=== PATIENT | female | born 1950 | race Caucasian/White ===

== ENCOUNTER 2017-03-22 07:05 | Day surgery (SDC) | payer MEDICARE, MEDICAID ==
--- NOTE | 2017-03-19 13:40 | CONS ---
DATE OF ADMISSION: 03/22/2017 DATE OF CONSULTATION: PREOPERATIVE INTERNAL MEDICINE CONSULTATION, MEDICAL HISTORY AND PHYSICAL The patient is to have surgery with Dr. Jc Duke on 03/22/2017. REASON FOR CONSULTATION: Consultation requested by Dr. Jc Duke for medical evaluation and clearance of a 66-year-old woman about to undergo surgery. Thank you, Dr. Duke, for allowing us to participate in the care of this patient. HISTORY OF PRESENT ILLNESS: Shonna Manning, a 66-year-old woman, has had problems with diabetic foot ulcers and osteomyelitis of the right ankle and is currently being admitted for a bone resection.. The patient had undergone intravenous antibiotic therapy, has finished that course, and is generally stable other than that and will be admitted now for correction of that particular problem. In terms of her prior surgical history, she has had cataract surgery, right and left, has had angioplasties done in terms of peripheral vascular issues, and also had a toe amputation. Other than that, has been relatively healthy, has not been admitted, at least not according to her, for any medical reasons, has been managing relatively well according to her and her . MEDICATIONS: She is currently taking the following medications: 1. Coumadin 10 mg a day which she will be stopping. 2. Lantus insulin 42 units daily. 3. Celexa 20 mg a day. 4. Baby aspirin 81 mg a day. 5. Lipitor (atorvastatin) 80 mg a day. 6. Metformin 1000 mg b.i.d. 7. Synthroid 200 mcg daily. 8. Lopressor 25 mg b.i.d. 9. Nifedipine ER 60 mg daily. 10. Benazepril 40 mg a day. 11. Hydrochlorothiazide 25 mg a day. ALLERGIES: SHE IS ALLERGIC TO IODINE DYE, OTHERWISE HAS NO SIGNIFICANT OTHER ALLERGIES TO ANY MEDICATIONS. SOCIAL HISTORY: The patient is , has 2 children and 1 grandchild. One child does have diabetes. She does not smoke or drink alcoholic beverages, does drink coffee. Usually has no difficulty sleeping at night. FAMILY HISTORY: Father at 60 of an accident. Mother is 85, has heart issues as well as hypertension. Two brothers, one sister in relatively good health other than hypertension. She knows of no family history of diabetes. There is, however, heart, hypertension, and stroke. No cancer or thyroid disease otherwise. REVIEW OF SYSTEMS HEENT: Periodic headaches. CARDIORESPIRATORY: Denies any chest pain or shortness of breath. GASTROINTESTINAL: No melena or hematemesis. GENITOURINARY: No urgency or frequency. Does have occasional nocturia. GYNECOLOGIC: Post menopause. MUSCULOSKELETAL: Positive for right ankle foot ulceration. NEUROPSYCHIATRIC: Unremarkable. GENERAL HEALTH: As above. PHYSICAL EXAMINATION: VITAL SIGNS: The patient's blood pressure was 100/60, pulse was 60 and regular , respirations were 18, temperature 98.4. Height and weight were not done due to the patient's difficulty in ambulating. GENERAL: The patient was noted to be a well-developed, well-nourished female, alert and cooperative, in no apparent acute distress, oriented to time, place, and person. HEAD, EARS, EYES, NOSE, AND THROAT: Head was atraumatic. Eyes: Pupils were equal, reactive to light and accommodation. Fundi were poorly visualized. Tympanic membranes were unremarkable. Nose was negative. Mouth was unremarkable. Fair oral hygiene was present. NECK: Supple without any rigidity. Trachea was midline. Thyroid was unremarkable. Neck veins were flat. Carotid pulses were equal. No bruits were heard. BACK: Unremarkable. CHEST: Symmetrical. BREASTS AND AXILLARY: Did not reveal any masses. LUNGS: Clear to percussion and auscultation. HEART: PMI in the fifth intercostal space at the midclavicular line. A regular sinus rhythm was noted. No significant murmurs, rubs, or gallops being elicited. ABDOMEN: Soft, good bowel sounds were noted. No significant organomegaly, masses, or tenderness. GENITALIA: Normal female external genitalia. RECTAL: Per PCP, unremarkable. EXTREMITIES: Did not reveal any clubbing or cyanosis. There was a trace to 1+ pitting edema in both lower extremities. The patient also had boot on the left lower extremity, the right upper extremity as well, making exam of that difficult, refer to Dr. Duke's note in terms of her lower extremity exam. Peripheral pulses at least on pulses that were obtainable was physiologic. SKIN: Moist and warm without any eruptions. No gross lymphadenopathy was noted. NEUROLOGIC: Grossly intact. IMPRESSION: 1. Diabetic ulcer and osteomyelitis, right ankle area. 2. Diabetes mellitus type 2. 3. Hypertension. 4. Hyperlipidemia. 5. Chronic pain syndrome. 6. Stable health otherwise. DISCUSSION: Review of laboratory and other data revealed the following: The patient's chemistry panel revealed normal electrolytes, random glucose 112, BUN 24, creatinine 1, uric acid elevated at 9.9. Liver function tests were normal. Serum iron was low as was her vitamin D. Her hemoglobin A1c, however, was still at 7. CBC revealed a low level anemia, probably iron deficiency with an elevated sed rate. UA was basically unremarkable and PT and PTT were obviously mildly prolonged secondary to the fact that patient was taking her Coumadin and this will be stopped for 4 to 5 days prior to her surgery. The patient's EKG revealed nonspecific ST-T-wave changes and some other mild abnormalities. The patient's chest x-ray was basically within normal limits. Some degenerative changes were noted and a tortuous aorta. Otherwise unremarkable. Dr. Duke, I see no contraindication in this patient undergoing current proposed surgery under the desired form of anesthesia and I feel she is a suitable candidate at this particular point in time. Thank you again, Dr. Duke, for allowing us to participate in the care of this patient. Dictated By: RASHMI ROBERTS/DEBRA Conf#: [id number] DID#: [id number] MTDHaley
[~2017-03-22] VITALS: Ht 165.1 cm; Wt 101.0 kg
[2017-03-22] VITALS (15 sets, daily range): BP systolic 131–183; BP diastolic 55–83; PULSE 68–88; RESP 16–18; Ht 165.1 cm; Wt 101.0 kg
[~2017-03-22 07:05] MED LIST: ASPI-535 PO; ATOR80TA75 PO; BENA40TA41 PO; CEFAZOLIN 2 GM/50 ML (PMX) 50 ML IVPB SCH; CITA20TA6 PO; EPHEDrine SULFATE 50 MG/5 ML SYG ONE; HYD25 PO; LANT3I SC; METF1000 PO; METO-448 PO; NIFE60TA7 PO; SYN2 PO; WARF10TA PO
[2017-03-22] MEDS ORDERED: POLYMYXIN/BACITRACIN 1L IRRIG ONE (08:18)
[2017-03-22] MEDS ORDERED: BUPIVACAINE 0.5% (SDV) 30 ML INJ ONE (08:18)
[2017-03-22] MEDS ORDERED: LIDOCAINE 2% (MDV) 20 ML INJ ONE (08:18)
[2017-03-22] MEDS ORDERED: LEVO200T6 PO (08:18)
[2017-03-22] MEDS ORDERED: GARL1CAP PO (08:18)
[2017-03-22] MEDS ORDERED: METO-448 PO (08:20)
--- NOTE | 2017-03-22 09:01 | HPN ---
Date/Time of Note Date/Time of Note DATE: 03/22/17 TIME: 09:01 Interval H&P Admission Note Pt. seen H&P reviewed: No system changes ROBERTO RICE DPM March 22, 2017 09:01
[2017-03-22] MEDS ORDERED: MIDAZOLAM 1 MG/ML 2 ML INJ ONE (09:22)
[2017-03-22] MEDS ORDERED: LIDOCAINE 2% (SDV) 5 ML INJ ONE (09:29)
[2017-03-22] MEDS ORDERED: ONDANSETRON 4 MG INJ ONE (09:29)
[2017-03-22] MEDS ORDERED: PROPOFOL 20 ML ONE (09:29)
[2017-03-22] MEDS ORDERED: FENTAnyl 50 MCG/ML VIAL ONE (09:29)
[2017-03-22] MEDS ORDERED: METOCLOPRAMIDE 10 MG INJ ONE (09:29)
[2017-03-22] MEDS ORDERED: CEFAZOLIN 1 GM INJ ONE (09:32)
[2017-03-22] MEDS ORDERED: MEPERIDINE 25 MG INJ IV PRN (10:00)
[2017-03-22] MEDS ORDERED: OXYCODONE/ACETAMINOPHEN (5/325) TAB PO PRN ×2 (10:00)
[2017-03-22] MEDS ORDERED: ONDANSETRON 4 MG INJ IV PRN (10:00)
[2017-03-22] MEDS ORDERED: FENTAnyl 50 MCG/ML VIAL IV PRN (10:00)
[2017-03-22] MEDS ORDERED: DIPHENHYDRAMINE 50 MG INJ IV PRN (10:00)
[2017-03-22] MEDS ORDERED: hydrALAzine 20 MG INJ IV PRN (10:00)
[2017-03-22] MEDS ORDERED: LABETALOL HCL 20MG INJ IV PRN (10:00)
[2017-03-22] MEDS ORDERED: PROCHLORPERAZINE 10 MG INJ IV PRN (10:00)
[2017-03-22] MEDS ORDERED: HYDROmorphONE (0.2 MG/ML) 10ML SYG IV PRN (10:00)
--- NOTE | 2017-03-23 09:03 | RADRPT ---
PROCEDURE: XR Foot. CLINICAL INDICATION: Post op xrays TECHNIQUE: AP, lateral and oblique views of the right foot was obtained. The images were reviewed on a PACS workstation. COMPARISON: Plain radiographs of the right foot 07/20/2016 FINDINGS: Resection of the fourth digit at the metatarsophalangeal joint is again noted. Deformity of the distal phalanges of the first, second, and third digits are again noted, likely due to prior resections or inflammation. Pes planus and degenerative changes of the midfoot are again noted. Small inferior and posterior calcaneal spurs are again noted. Soft tissues are unremarkable. IMPRESSION: No significant interval change compared to the prior radiographs from 07/20/2016. RPTAT: EE Physician Naima Date Time Electronically viewed and signed by Physician Naima on 03/23/2017 09:02 /
== END 2017-03-22 13:00 | disposition home or self-care (01) ==
LOC: SDS 07:05
PROVIDERS: ATTEND Podiatrist Foot & Ankle Surgery
DX: M86.8X7 Other osteomyelitis, ankle and foot (principal); I73.9 Peripheral vascular disease, unspecified; E11.9 Type 2 diabetes mellitus without complications; E66.01 Morbid (severe) obesity due to excess calories; Z68.37 Body mass index [BMI] 37.0-37.9, adult; E03.9 Hypothyroidism, unspecified; F32.9 Major depressive disorder, single episode, unspecified; R94.31 Abnormal electrocardiogram [ECG] [EKG]; E78.5 Hyperlipidemia, unspecified; E78.00 Pure hypercholesterolemia, unspecified
CPT/HCPCS: 28120; 73630; 82962; 88304; 88311; J0360; J0690; J1170; J2250; J2405; J2765; J3010

== ENCOUNTER 2017-06-09 05:59 | Day surgery (SDC) | payer MEDICARE, MEDICAID ==
[~2017-06-09] VITALS: Ht 162.6 cm; Wt 95.0 kg
[2017-06-09] VITALS (7 sets, daily range): BP systolic 118–144; BP diastolic 57–67; PULSE 83–98; RESP 14–18; Ht 162.6 cm; Wt 95.0 kg
[~2017-06-09 05:59] MED LIST changes: -CEFAZOLIN 2 GM/50 ML (PMX) 50 ML IVPB SCH; -EPHEDrine SULFATE 50 MG/5 ML SYG ONE; +GARL1CAP PO; +LEVO200T6 PO; -SYN2 PO; -WARF10TA PO
[2017-06-09] MEDS ORDERED: COU10 PO (06:50)
[2017-06-09] MEDS ORDERED: IODIXANOL LOCM 100 ML BTL ONE (06:57)
[2017-06-09] MEDS ORDERED: MIDAZOLAM 1 MG/ML 2 ML INJ ONE (06:57)
[2017-06-09] MEDS ORDERED: LIDOCAINE 1% (MDV) 20 ML INJ ONE (06:57)
[2017-06-09] MEDS ORDERED: FENTAnyl 50 MCG/ML VIAL ONE (06:57)
[2017-06-09] MEDS ORDERED: IOHEXOL 350MG/ML 50 ML BTL ONE (06:57)
[2017-06-09] MEDS ORDERED: HEPARIN 1000 UNITS/ML 10 ML INJ ONE (06:57)
[2017-06-09 06:58] LABS: BASOPHILS % 0.3 % (0.0-2.0); EOSINOPHILS # 0.3 10^3/ul (0.0-0.5); EOSINOPHILS % 2.2 % (0.0-7.0); HEMOGLOBIN 11.4 g/dl (12.0-16.0); LYMPHOCYTES # 3.6 10^3/ul (0.8-2.9); MEAN CORPUSCULAR HEMOGLOBIN 27.8 pg (29.0-33.0); MEAN CORPUSCULAR HGB CONC 31.7 g/dl (32.0-37.0); MEAN CORPUSCULAR VOLUME 87.8 fl (82.0-101.0); MEAN PLATELET VOLUME 9.9 fl (7.4-10.4); MONOCYTE # 1.1 10^3/ul (0.3-0.9); MONOCYTES % 7.9 % (0.0-11.0); PLATELET COUNT 402 10^3/UL (140-415); RED CELL DISTRIBUTION WIDTH 17.2 % (11.5-14.5)
[2017-06-09] MEDS ORDERED: METHYLPREDNISOLONE 125 MG INJ ONE (07:08)
[2017-06-09] MEDS ORDERED: DIPHENHYDRAMINE 50 MG INJ ONE (07:08)
[2017-06-09 07:23] LABS: HOLD TRANSMISSIONS 1
[2017-06-09 07:27] LABS: WHITE BLOOD COUNT 13.9 10^3/ul (4.8-10.8)
[2017-06-09 07:32] LABS: INR 1.02; PROTIME 13.4 Sec (12.2-14.2)
[2017-06-09 07:38] LABS: ALBUMIN 4.3 g/dl (3.3-4.9); ALBUMIN/GLOBULIN RATIO 0.97; BILIRUBIN,INDIRECT 0.1 mg/dl (0-1.1); BILIRUBIN,TOTAL 0.1 mg/dl (0.2-1.3); TOTAL PROTEIN 8.7 g/dl (6.1-8.1)
[2017-06-09 07:39] LABS: CREATININE 1.7 mg/dl (0.44-1.00); POTASSIUM 4.1 mmol/L (3.5-5.1)
--- NOTE | 2017-06-09 09:21 | OPR ---
Date/Time of Note Date/Time of Note DATE: 06/09/17 TIME: 09:20 Operative Report Preoperative Diagnosis R heel ulcer Postoperative Diagnosis same Operation/Procedure Performed Aortogram, BLE r/o, R LEONIDES and TP trunk TILE INSPECTOR 3 x 100 mm Angiosculpt Surgeon: RADHA WILLAMS MD Anesthesia Type: moderate sedation Estimated Blood Loss: none Transfusion Required: no Specimen: none Grafts/Implants: none Complications: no RADHA WILLAMS MD Jun 09, 2017 09:21
--- NOTE | 2017-06-09 09:22 | HPN ---
Date/Time of Note Date/Time of Note DATE: 06/09/17 TIME: 09:21 Interval H&P Admission Note Pt. seen H&P reviewed: No system changes RADHA WILLAMS MD Jun 09, 2017 09:21
--- NOTE | 2017-06-09 09:42 | OPR ---
DATE OF OPERATION: 06/09/2017 PREOPERATIVE DIAGNOSIS: Large nonhealing right heel ulcer. POSTOPERATIVE DIAGNOSIS: Large nonhealing right heel ulcer. PROCEDURE PERFORMED: 1. Abdominal aortogram. 2. Bilateral lower extremity arteriogram. 3. Percutaneous angioplasty of the right anterior tibial and tibioperoneal trunk arteries. SURGEON: Dr. Jhoan Kilpatrick. ANESTHESIA: Local with sedation. ESTIMATED BLOOD LOSS: Minimal. COMPLICATIONS: There were no intraprocedural complications. INDICATIONS: This is a 66-year-old diabetic, morbidly obese woman with a nonhealing ulcer on the right plantar foot. It is a large open ulcer, 3 or 4 cm in diameter and 7 cm deep. She had a previous intervention on the right lower extremity about 6-7 months ago. She had a palpable DP pulse after that and no longer can feel a pulse, so I brought her back today for arteriogram and possible intervention. OPERATIVE PROCEDURE: Patient was brought to the catholic priest and placed on the table in supine position. The groin was prepped and draped in the usual sterile fashion. I used ultrasound to identify the left common femoral artery. It was patent. I infiltrated over the artery using a 10 cc of 1 percent xylocaine. I then used a micropuncture needle to enter the artery under ultrasound guidance. A 018 wire was inserted through the needle into the artery and then a micropuncture sheath was advanced over the wire into the artery and then advanced to 5 Mckeon wire up in the abdominal aorta. I changed to micropuncture sheath for a 5- Angolan sheath over the wire. I advanced an Omniflush catheter into the infrarenal aorta and did an aortogram. I used the catheter to advance the wire up and over the bifurcation and into the right popliteal artery and advanced the catheter into the SFA and did angiography down the right lower extremity. Findings of angiography, the left renal artery is widely patent. The right bilateral common superficial and profunda femoral arteries are patent. The right SFA is patent all the way down. There is some mild irregularity. Popliteal artery on the right is patent above and below the knee. Below the knee, the anterior tibial artery is patent with probably 60-75 percent stenosis at its origin with some graying and narrowing. The TP trunk is occluded. Posterior tibial artery is completely gone. It does not reconstitute. The peroneal artery reconstitutes at its origin from the distal to the occlusion in the TP trunk and then peroneal arteries and the anterior tibial arteries are patent all the way down. The anterior tibial artery crosses the ankle into the foot and gives rise to had an adequate dorsalis pedis. It is small and it does not seem to be filling the area where the wound is on the heel. The peroneal artery, however, goes down to the ankle gives off collaterals into the plantar branches and that seems to be filling the heel area. I can see a blush where the wound is. I decided to treat the anterior tibial artery stenosis and to reopen that included TP trunk so then I advanced an Amplatz wire through the catheter. I left it in the popliteal artery. I then exchanged the 5-Angolan sheath for a 6-Angolan pinnacle destination sheath, the 65 cm, which was left in the distal right SFA. I then used a command wire to cross the occlusion in the peroneal with an 014 quick cross catheter for support. I advanced the catheter down into the distal peroneal and injected, confirmed that I was in the true lumen. I advanced the wire back and then I treated the peroneal with a 3 mm x 100 mm AngioSculpt balloon to 8 atmospheres. I did 2 treatments. The first one, there was still some residual stenosis. I treated again for 2 minutes at 8 atmospheres with no residual stenosis. I then brought the wire back and advanced it into the anterior tibial and I treated that proximal anterior tibia with the same angioscope balloon again to 5 atmospheres for 2 minutes and there was no residual stenosis in either the anterior tibial and peroneal. I did a completion view of the foot. Previously, the anterior tibial filled and then the very, very late filling of the peroneal in the ankle now. After angioplasty, there was very brisk filling of both the anterior tibial and peroneal and the peroneal goes all the way down into the foot and it goes right into the area of the wound at the same rate as the anterior tibial fills. So, I was very happy with the results. I pulled the catheter back into the left external iliac artery and did a completion angiogram, which showed that the puncture was in the left common femoral, and the common superficial and profunda femoral arteries on the left were all patent. I then used a 6-Angolan Angio-Seal to close the puncture site with good hemostasis. I checked the right foot. There is now palpable DP pulse 3+. The foot was warm and pink. She tolerated the procedure well without any complications and was transferred to the recovery room in stable condition. She is going to resume her Coumadin today and I will see her back in the APC next week. Dictated By: Jhoan Kilpatrick MD /al/willy /Document#: [id number] CC: Jc Duke DPM;*[facility]*
--- NOTE | 2017-06-09 13:53 | RADRPT ---
Vent Rate: 89 bpm RR Interval: 0 msec MD Interval: 146 msec QRS Duration: 82 msec QT Interval: 392 msec QTC Interval: 476 msec P-R-T Reading: 40 - -10 - 14 degrees Normal sinus rhythm Low voltage QRS Possible Lateral infarct , age undetermined Inferior infarct , age undetermined Abnormal ECG Electronically Signed By: Chemo Perez [id number]
== END 2017-06-09 13:24 | disposition home or self-care (01) ==
LOC: SDS 05:59 → CCL 06:08 → SDS 13:24
PROVIDERS: ATTEND Surgery Vascular Surgery
DX: I70.234 Atherosclerosis of native arteries of right leg with ulceration of heel and midfoot (principal); L97.419 Non-pressure chronic ulcer of right heel and midfoot with unspecified severity
CPT/HCPCS: 37228; 80053; 82962; 85025; 85610; 93005; C1769; C1887; C1894; J1200; J1644; J2250; J2930; J3010; Q9967

== ENCOUNTER 2017-11-17 09:40 | Day surgery (SDC) | END 2017-11-17 12:00 | disposition home or self-care (01) ==

== ENCOUNTER 2017-11-24 06:01 | Day surgery (SDC) | END 2017-11-24 13:00 | disposition home or self-care (01) ==

== ENCOUNTER 2017-12-29 09:13 | Inpatient (IN) | END 2018-01-11 17:51 | DRG 638 ==

== ENCOUNTER 2018-04-27 13:51 | Observation (INO) | END 2018-04-28 19:10 ==

== ENCOUNTER → 2018-05-03 | Day surgery (SDC) | END | disposition home or self-care (01) ==

== ENCOUNTER 2018-06-20 12:30 | Emergency (ER) | END 2018-06-20 17:30 | disposition home or self-care (01) ==

== ENCOUNTER 2019-04-20 07:30 | Inpatient (IN) | payer MEDICARE, MEDICAID ==
--- NOTE | 2019-04-11 22:04 | HP ---
Date/Time of Note Date/Time of Note DATE: 04/11/19 TIME: 21:48 Assessment/Plan VTE Prophylaxis SCD applied (from Ns): Yes Pharmacological prophylaxis: apixaban Assessment/Plan Problems: (1) Pre-op exam Status: Acute Comment: At this time I find this patient to be acceptable surgical candidate and concur with your plans to proceed with surgery. She is at average risk as compared to her age-matched peers and should do well using standard routine anesthesia precautions. She has been on novel oral anticoagulant therapy for history of DVT. Please note she does have a prior history of peripheral vascular angioplasty which was done 11 months ago. (2) Hypothyroidism Status: Chronic Comment: She has been noncompliant with her thyroid hormones. I will have her back on those plus bring her TSH and doing a better range using liothyronine temporarily. Assuming she cooperates of the medication she is stable to proceed with surgery. Qualifiers: Hypothyroidism type: acquired Qualified Codes: E03.9 - Hypothyroidism, unspecified (3) Peripheral vascular disease Status: Chronic Comment: Stable at this time. (4) Diabetes mellitus type 2 in obese Status: Chronic Comment: Her glycemic control is fair. Certainly at a level that would be acceptable for surgery but there are some other issues that need to be dealt with. (5) Diabetes, polyneuropathy Status: Chronic Comment: Noted and stable. Qualifiers: Diabetes mellitus type: type 2 Qualified Codes: E11.42 - Type 2 diabetes mellitus with diabetic polyneuropathy (6) Essential hypertension Status: Chronic Comment: Adequate control. Please note this to be under better control if she was taking her thyroid medication regularly (7) Hyperlipidemia associated with type 2 diabetes mellitus Status: Chronic Comment: Continue with full dose statin therapy (8) Recurrent deep vein thrombosis (DVT) Status: Chronic Comment: Transition to Lovenox prior to surgery and then resume apixaban postop CC: DAPHNE WILLIAMSON DPM; RADHA WILLAMS MD; NATHAN HAMMOND MD ; HPI/ROS Admit Date/Time Admit Date/Time April 20, 2019 Hx of Present Illness This is 1 of several [facility] admissions for this 68-year old female is being brought in for right foot mid foot fusion with debridement ar-old and external fixation fixator placement for a right Charcot joint. ROS Patient reports in general she is doing well although there are some issues with the quality of information she supplies. Constitutional: no complaints (Denies fevers chills or sweats) Eyes: no complaints (Her client resolution specialist is Dr. 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, peripheral neuropathy, retinopathy, Charcot foot, foot osteomyelitis, peripheral vascular disease), high cholesterol, hypertension, hypothyroid, renal disease (Chronic kidney disease stage III;), other (Diastolic dysfunction grade 1; peripheral vascular disease; Charcot foot; chronic pain syndrome; major depressive disorder; anemia; hyperuricemia; vitamin D deficiency) Medications Eliquis 5 mg twice daily; citalopram 10 mg a day; levothyroxine 100 mcg once a day; metoprolol 25 mg twice daily; metformin 500 mg twice daily; losartan 50 mg twice daily; chlorthalidone 25 mg once a day; atorvastatin 80 mg every afternoon; Basaglar insulin 20 units nightly; NovoLog insulin prior to meals 2 to 5 units. Coded Allergies: iodine (Verified Allergy, Unknown, rash, 05/03/18) Past Surgical History Past Surgical Hx: other (Status post right calcanectomy; status post amputation right second toe; status post angioplasty of peroneal and tibial artery) Family History Significant Family History: heart disease, diabetes, hypertension, other (Negative for anesthesia reactions) Social History Alcohol Use: none Smoking Status: Never smoker Drug Use: none Exam/Review of Systems Vital Signs Vitals Blood pressure 104 74 pulse 68 temp 98.3 respirations 22 Exam Constitutional: alert, oriented Head: normocephalic, atraumatic Eyes: nl conjunctiva, EOMI, nl lids, nl sclera, other (Fundi were not well- visualized) ENMT: nl external ears & nose, nl lips & teeth, nl nasal mucosa & septum, mucosa pink and moist Neck: supple, non-tender Respiratory: clear to auscultation, normal air movement Cardiovascular: regular rate and rhythm, nl pulses Gastrointestinal: soft, nl liver, spleen, non-tender Musculoskeletal: nl extremities to inspection, nl gait and stance Extremities: normal pulses Neurological: COMMERCIAL ARTIST LETTERING II-XII intact, nl mental status, nl speech, nl strength Skin: nl turgor, rash or lesions CHARLES BOWERS MD Apr 11, 2019 22:01
[~2019-04-20] VITALS: Ht 157.5 cm; Wt 106.8 kg
[~2019-04-20 07:30] MED LIST changes: +ACET-2047 PO; +APIX2.5T PO; +ASC500 PO; -ASPI-535 PO; +ATOR-2 PO; -ATOR80TA75 PO; -BENA40TA41 PO; +BISA5TAB6 PO; +CALC-216 PO; +CITA20TA11 PO; -CITA20TA6 PO; +DOCU-159 PO; -GARL1CAP PO; -HYD25 PO; +HYDR-4011 PO; +HYDR12.58 PO; +LACTINEX PO; +LEVO100T82 PO; -LEVO200T6 PO; +LOSA50TA14 PO; +MERO1VIA3 IV; -METF1000 PO; +METF500T24 PO; -METO-448 PO; +METO25TA4 PO; +MULT-542 PO; -NIFE60TA7 PO; +NOVO3I SC; +ONDA8TAB14 PO; +PROT946L PO; +VANC500F2 IV
[2019-04-22] VITALS (22 sets, daily range): BP systolic 119–171; BP diastolic 59–85; PULSE 74–83; RESP 15–18; Ht 157.5 cm; Wt 106.8 kg
[2019-04-22] MEDS ORDERED: CEFAZOLIN 2 GM/50 ML (PMX) 50 ML IVPB ONE (07:00)
[2019-04-22] MEDS ORDERED: CHLO25TA2 PO (14:25)
[2019-04-22] MEDS ORDERED: CITA10TA5 PO (14:25)
[2019-04-22] MEDS ORDERED: METF500T24 PO (14:25)
[2019-04-22] MEDS ORDERED: APIX5TAB PO (14:25)
[2019-04-22] MEDS ORDERED: LIOT5TAB3 PO (14:28)
[2019-04-22] MEDS: SOD CHLORIDE 0.9% 1,000 ML IV SCH (15:24)
--- NOTE | 2019-04-22 16:12 | HPN ---
Date/Time of Note Date/Time of Note DATE: 04/22/19 TIME: 16:11 Interval H&P Admission Note Pt. seen H&P reviewed: No system changes DAPHNE WILLIAMSON DPM Apr 22, 2019 16:12
--- NOTE | 2019-04-22 16:35 | PREAC ---
Date/Time of Note Date/Time of Note DATE: 04/22/19 TIME: 16:32 Anesthesia Eval and Record Evaluation Time Pre-Procedure Interview DATE: 04/22/19 TIME: 16:32 Age 68 Sex female NPO: 8 hrs Preoperative diagnosis right diabetic foot ulcer, charcot.. Planned procedure right foot mid fusion, wound debridement, application of fixator, skin graft Past Medical History Past Medical History: Includes Cardio: HTN, Dyslipidemia Endo: Diabetes Neuro: Peripheral neuropathy GI: Morbid obesity Heme: Anemia Surgery & Anesthesia Issues No known issue Meds Anticoagulation: No Beta Aggie within 24 hr: Yes Active Scripts Ondansetron (Ondansetron Odt) 8 Mg Tab.rapdis, 8 MG PO Q6H PRN for NAUSEA AND/OR VOMITING, #6 TAB Prov:SHAD DUNLAP MD 06/20/18 Reported Medications Liothyronine Sodium* (Cytomel*) 5 Mcg Tablet, 5 MCG PO BID, TAB 04/22/19 Chlorthalidone* (Chlorthalidone*) 25 Mg Tablet, 25 MG PO DAILY, TAB 04/22/19 Metformin Hcl* (Metformin Hcl*) 500 Mg Tablet, 500 MG PO WITH BREAKFAST DINNE, #60 TAB 04/22/19 Metformin Hcl* (Metformin Hcl*) 500 Mg Tablet, 500 MG PO WITH BREAKFAST DINNE, #60 TAB 04/22/19 Citalopram Hydrobromide* (Citalopram Hydrobromide*) 10 Mg Tablet, 10 MG PO DAILY, #30 TAB 04/22/19 Apixaban* (Eliquis*) 5 Mg Tablet, 5 MG PO BID, TAB 04/22/19 Insulin Aspart* (Novolog Insulin Pen*) 100 Unit/Ml Soln, 0 SC .SLIDING SCALE AC, EA 05/03/18 Metoprolol Tartrate* (Lopressor*) 25 Mg Tablet, 25 MG PO BID, #60 TAB 05/03/18 Hydrocodone/Acetaminophen ([place] 5-325 Tablet) 1 Each Tablet, 1 EACH PO Q6 PRN for PAIN LEVEL 4-10, TAB 05/03/18 Acetaminophen* (Acetaminophen*) 650 Mg Tablet, 650 MG PO Q6H PRN for PAIN AND OR ELEVATED TEMP, #30 TAB 05/03/18 Atorvastatin* (Atorvastatin*) 80 Mg Tablet, 80 MG PO QHS, #30 TAB 05/03/18 Insulin Glargine* (Lantus*) 100 Unit/Ml Soln, 35 UNIT SC QHS, #1 VIAL 05/03/18 Levothyroxine Sodium* (Levoxyl*) 100 Mcg Tablet, 100 MCG PO BEFORE BREAKFAST, #30 TAB 05/03/18 Losartan Potassium* (Losartan Potassium*) 50 Mg Tablet, 50 MG PO BID, TAB 05/03/18 Discontinued Reported Medications Meropenem (MEROPENEM) 1 Gm Vial, 1 GM IV Q12 PRN for WOUND INFECTION, VIAL UNTIL 05-09-18 05/03/18 Metformin Hcl* (Metformin Hcl*) 500 Mg Tablet, 500 MG PO WITH BREAKFAST, #30 TAB 05/03/18 Multivitamin* (Daily Value*) 1 Each Tablet, 1 TAB PO DAILY, TAB 05/03/18 Calcium Carbonate/Vitamin D3 (Oyster Shell+D 250 mg Tablet) 1 Each Tablet, 1 EACH PO BID, TAB 05/03/18 Protein Supplement (Promod) 946 Ml Liquid, 30 ML PO DAILY 05/03/18 Vancomycin/0.9 % Sod Chloride (Vanco 500 mg/100 ml-0.9% NaCl) 500 Mg/100 Ml Froz.piggy, 650 MG IV STARTED 04-11-18 STOP 05-09-18 05/03/18 Ascorbic Acid (Vitamin C) 500 Mg Tab, 500 MG PO BID, TAB 05/03/18 Apixaban* (Eliquis*) 2.5 Mg Tablet, 2.5 MG PO BID, TAB 05/03/18 Bisacodyl* (Bisacodyl*) 5 Mg Tablet.dr, 5 MG PO DAILY, TAB 05/03/18 Citalopram Hydrobromide* (Celexa*) 20 Mg Tablet, 20 MG PO DAILY, #30 TAB 05/03/18 Hydrochlorothiazide* (Hydrochlorothiazide*) 12.5 Mg Tablet, 12.5 MG PO DAILY, #30 TAB 05/03/18 Docusate Sodium* (Docusate Sodium*) 100 Mg Capsule, 100 MG PO BID, #60 CAP 05/03/18 Lactobacillus Acidophilus* (Lactinex*) 1 Tab Chew, 1 TAB PO TID, TAB 05/03/18 Current Medications Sodium Chloride 1,000 ml @ 25 mls/hr Q24H IV Last administered on 04/22/19at 15:24; Admin Dose 25 MLS/HR; Start 04/22/19 at 15:30 Meds reviewed: Yes Allergies Coded Allergies: iodine (Verified Allergy, Unknown, rash, 05/03/18) Allergies Reviewed: Yes Labs/Studies Labs Reviewed: Reviewed by anesthesiologist test: N/A Studies: ECG, CXR Pre-procedure Exam Last vitals Vital Signs Date Temp Pulse Resp B/P (MAP) Pulse Ox O2 O2 Flow FiO2 Time Delivery Rate 04/22/19 98.3 83 16 149/70 95 Room Air 14:47 (96) Airway: Adequate mouth opening, Adequate thyromental dist Mallampati: Mallampati II Teeth: Normal Lung: Normal Heart: Normal ASA Physical Status ASA physical status: 3 Emergency: None Planned Anesthetic General/MAC: LMA Planned Pain Management Parenteral pain med Pre-operative Attestations Prior to commencing anesthesia and surgery, the patient was re-evaluated, there was verification of: *The patient's identity *The results of appropriate recent lab work and preoperative vital signs *The above evaluation not changing prior to induction *Anesthetic plan, risk benefits, alternative and complications discussed with patient/family; questions answered; patient/family understands, accepts and wishes to proceed. LEAH POWELL Apr 22, 2019 16:35
[2019-04-22] MEDS ORDERED: THROMBIN 5000 UNIT VIAL ONE (16:58)
[2019-04-22] MEDS ORDERED: POLYMYXIN/BACITRACIN 1L IRRIG ONE (16:58)
[2019-04-22] MEDS ORDERED: GELATIN SIZE 100 SPONGE ONE (16:58)
[2019-04-22] MEDS ORDERED: PROPOFOL 20 ML ONE (16:59)
[2019-04-22] MEDS ORDERED: LIDOCAINE 2% (SDV) 5 ML INJ ONE (17:01)
[2019-04-22] MEDS ORDERED: ROCURONIUM 50 MG INJ ONE (17:01)
[2019-04-22] MEDS ORDERED: FENTAnyl 50 MCG/ML VIAL ONE (17:01)
[2019-04-22] MEDS ORDERED: CEFAZOLIN 1 GM INJ ONE (17:02)
[2019-04-22] MEDS ORDERED: ONDANSETRON 4 MG INJ ONE (17:07)
[2019-04-22] MEDS ORDERED: DEXAMETHASONE 4 MG/ML 5 ML INJ ONE (17:07)
[2019-04-22] MEDS ORDERED: VANCOMYCIN 1 GM INJ ONE (18:03)
--- NOTE | 2019-04-22 18:59 | CONS ---
DATE OF ADMISSION: 04/22/2019 DATE OF CONSULTATION: 04/22/2019 SUBJECTIVE FINDINGS: The patient here for surgical intervention to the right foot. She has multiple issues including nonhealing right foot ulceration, history of calcaneal osteomyelitis as well as joaquina ropathic fracture with malunion. She had been treated as an outpatient for wound care without succes s. 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 She has had prior treatme nt with antibiotics for osteomyelitis as well as she also had hyperbaric therapy with a persistent ul ceration. She is currently, due to comorbidities and nonhealing ulceration, at risk for major limb a mputation. The patient and family requesting attempts at limb salvage. She has seen Dr. Hassan on perioperative period and optimized for surgical intervention. The patient has a history of diabete s and has a fair glycemic control, also peripheral arterial disease status post angioplasty with Dr. Kilpatrick. PAST MEDICAL HISTORY: 1. Hypothyroidism. 2. Diabetes type 2. 3. Obesity. 4. Diabetes with peripheral neuropathy. 5. Hypertension. 6. Hyperlipidemia. 7. History of deep vein thrombosis and had been on chronic anticoagulation therapy and she had been on Eliquis 5 mg b.i.d. MEDICATIONS: 1. Eliquis 5 mg b.i.d. 2. Citalopram 10 mg daily. 3. Levothyroxine 100 mcg daily. 4. Metoprolol 25 mg b.i.d. 5. Metformin 500 mg b.i.d. 6. Losartan 50 mg b.i.d. 7. Chlorthalidone 25 mg once daily. 8. Atorvastatin 80 mg every day. 9. Basaglar insulin 20 units nightly. 10. NovoLog insulin prior to meals 2 to 5 units. ALLERGIES: IODINE. PAST SURGICAL HISTORY: History of a right partial calcanectomy, history of amputation right second t oe, angioplasty of peroneal and anterior tibial artery. FAMILY HISTORY: Positive for heart disease, diabetes, hypertension. SOCIAL HISTORY: Denies any tobacco, alcohol or illicit drug use. REVIEW OF SYSTEMS: 1. Right foot diabetic ulceration. 2. Charcot foot deformity. PHYSICAL EXAMINATION: VITAL SIGNS: Temperature is 98.3, pulse 83, respiratory rate 16, blood pressure is 149/70, pulse ox is 95% on room air. GENERAL: The patient is alert, oriented, no acute distress. Regular respiration. EXTREMITIES: The patient has total contact cast to right lower extremity. No malodor. The patient had radiographs of the right foot revealing chronic osteomyelitis of calcaneus with adjacent soft tis christofer wound ulcer, Charcot arthropathy of the hindfoot with midfoot collapse, fragmentation of the calc aneus. Ankle x-rays advanced arthrosis of the hindfoot and midfoot. PLAN: The patient seen in the perioperative period. Discussed planned procedure, include ulceration debridements, midfoot fusion with use of a circular ring fixation and possible wound closure with po ssible skin graft or flap surgery. The patient has had attempted wound care with minimal improvement and she had subsequently developed neuropathic fracture as well as the calcaneus, also has Charcot o f the midfoot, and given the instability, suspect this is underlying mechanical reason for nonhealing ulceration. The patient has been treated with hyperbarics and IV antibiotics. Currently off antibi otics and has been seen as an outpatient by infectious disease. Discussed risks of surgery and the p atient is amenable. Cast removed in the preoperative holding area. Informed consent obtained and lance lee questions answered to her satisfaction. The patient will need postoperative surveillance as an inp atient for tight glycemic control as well as strict nonweightbearing to the operative foot. Dictated By: DAPHNE GASPAR/DEBRA Conf#: [id number] DID#: [id number] CC: DAPHNE WILLIAMSON DPM;*EndCC*
[2019-04-22] MEDS ORDERED: SUGAMMADEX SODIUM 200 MG/2 ML VIAL IV ONE (20:30)
--- NOTE | 2019-04-22 20:49 | SIPON ---
Date/Time of Note Date/Time of Note DATE: 04/22/19 TIME: 20:41 Operative Report Preoperative Diagnosis Right foot charcot Right foot diabetic ulceration Right foot h/o calcaneal osteomyelitis Right foot midfoot instability DM2 with PN Obesity h/o DVT PAD with prior angioplasty Postoperative Diagnosis same Operation/Procedure Performed Right foot excisional debridement of ulceration skin, subcut, muscle, bone with biopsy Right foot midfoot lateral column fusion with ceremet and bone chips Right foot Flexor Digitorum Brevis muscle flap Right foot abductor digital muscle flap Right foot fasciocutaneous random flap Right foot application of allograft- integra bilayer Right foot application multiplane external fixator Surgeon see signature line botany laboratory assistant Aamdo Michele DPM Anesthesia: general Estimated blood loss: 10 - 50 ml's Transfusion Required none Specimen bone culture bone pathology Grafts/Implants none Complications none DAPHNE WILLIAMSON DPM Apr 22, 2019 20:49
[2019-04-22] MEDS ORDERED: HYDROmorphONE 1 MG/5 ML IV SYRINGE IV ONE (20:52)
--- NOTE | 2019-04-22 20:52 | PAC ---
Date/Time of Note Date/Time of Note DATE: 04/22/19 TIME: 20:52 Post-Anesthesia Notes Post-Anesthesia Note Last documented vital signs Vital Signs Date Temp Pulse Resp B/P (MAP) Pulse Ox O2 O2 Flow FiO2 Time Delivery Rate 04/22/19 252 98.3 83 16 149/70 95 Room Air (96) Activity: WNL Respiratory function: WNL Cardiovascular function: WNL Mental status: Baseline Pain reasonably controlled: Yes Hydration appropriate: Yes Nausea/Vomiting absent: Yes LEAH POWELL Apr 22, 2019 20:52
[2019-04-22] MEDS ORDERED: MEPERIDINE 25 MG INJ IV PRN (21:00)
[2019-04-22] MEDS: INSULIN ASPART [NOVOLOG] 3 ML PEN SC SCH (21:00)
[2019-04-22] MEDS ORDERED: DIPHENHYDRAMINE 50 MG INJ IV PRN (21:00)
[2019-04-22] MEDS ORDERED: ONDANSETRON 4 MG INJ IV PRN ×2 (21:00)
[2019-04-22] MEDS ORDERED: FENTAnyl 50 MCG/ML VIAL IV PRN ×3 (21:00)
[2019-04-22] MEDS ORDERED: ACETAMINOPHEN 325 MG TAB PO PRN (21:00)
[2019-04-22] MEDS ORDERED: HYDROCODONE/APAP (5/325) TAB PO PRN (21:00)
[2019-04-22] MEDS ORDERED: KETOROLAC 30 MG INJ IV PRN (21:00)
[2019-04-22] MEDS ORDERED: CEFAZOLIN 1 GM/50 ML (PMX) 50 ML IVPB SCH (21:00)
[2019-04-22] MEDS ORDERED: EPHEDrine 25 MG/5 ML SYG IV PRN (21:00)
[2019-04-22] MEDS ORDERED: hydrALAzine 20 MG INJ IV PRN (21:00)
[2019-04-22] MEDS ORDERED: HYDROmorphONE 1 MG/5 ML IV SYRINGE IV PRN ×3 (21:00)
[2019-04-22] MEDS ORDERED: LABETALOL HCL 20MG INJ IV PRN (21:00)
[2019-04-22] MEDS ORDERED: ALBUTEROL 0.083% (NEB) 2.5 MG/3 ML AMP HHN PRN (21:00)
[2019-04-22] MEDS ORDERED: METOCLOPRAMIDE 10 MG INJ IV PRN (21:00)
--- NOTE | 2019-04-22 23:17 | OPR ---
DATE OF OPERATION: 04/22/2019 SURGEON: Daphne Williamson DPM VACUUM PAN OPERATOR: Shonda Lainez DPM PREOPERATIVE DIAGNOSES: 1. Right foot Charcot 2. Right foot diabetic foot ulceration, failed outpatient treatment. 3. History of right foot calcaneal osteomyelitis. 4. Right foot mid foot instability. 5. Diabetes with peripheral neuropathy. 6. Obesity. 7. History of deep venous thrombosis. 8. Peripheral arterial disease, history of angioplasty, right anterior tibial. POSTOPERATIVE DIAGNOSES: 1. Right foot Charcot 2. Right foot diabetic foot ulceration, failed outpatient treatment. 3. History of right foot calcaneal osteomyelitis. 4. Right foot mid foot instability. 5. Diabetes with peripheral neuropathy. 6. Obesity. 7. History of deep venous thrombosis. 8. Peripheral arterial disease, history of angioplasty, right anterior tibial. PROCEDURES PERFORMED: 1. Right foot excisional debridement of skin, subcutaneous tissue, muscle and bone with biopsy of becky ne. 2. Right foot mid foot lateral column fusion with Cerament and allograft bone chips. 3. Right foot flexor digitorum brevis muscle flap. 4. Right foot abductor digiti minimi muscle flap. 5. Right foot fasciocutaneous rotation advancement random flap. 6. Right foot application of allograft Integra bilayer. 7. Right foot application of multiplane external fixator. PATHOLOGY: Bone cultures and bone pathology. ANESTHESIA: General. ESTIMATED BLOOD LOSS: 10 to 50 mL. COMPLICATIONS: None. MATERIALS: Integra bilayer, 3-0 Vicryl, 3-0 nylon, multiple smooth wires and 0.062 K-wires. GRAFTS: Bone chip allograft and Cerament. COMPLICATIONS: None. INDICATION FOR PROCEDURE: This is a 68-year-old female with a nonhealing ulceration, who has had mul tiple prior treatments, history of osteomyelitis, hyperbaric treatment as well as IV antibiotics for extended period of time. The patient has since developed instability with a Charcot of the mid foot. She had also prior neuropathic fracture of the calcaneus with malunion. The patient has had prior vascular consultation with angioplasty and has been off of IV antibiotics. She had been seen by infe ctious disease. The patient requesting further attempts at limb salvage. The patient with multiple comorbidities had been optimized. Preoperatively by endocrinology, the patient agrees with complianc e with medications. Discussed planned procedure, risks, benefits, potential complications, questions were answered in Hebrew and site was marked perioperatively. The patient was given 2 grams of Ance f preoperatively. PROCEDURE IN DETAIL: The patient brought into the operating room and placed in the supine position. Extremity was prepped with chlorhexidine. Formal time-out had been performed. A tigh tourniquet daniels d been placed and extremity was draped in usual sterile fashion, subsequently exsanguinated and thigh tourniquet elevated. This patient had an ulceration of plantar aspect of the heel measuring 5 x 3 c m. Excisional debridement of skin, subcutaneous tissue, muscle and tunneled to bone using a rongeur and curette, bone was excised. Portion was obtained for pathology and for culture. At this time, a medially based flap was elevated to expose the lateral column. There was extensive bruising to the _ ___ with torn plantar fascia ligament. These were debrided. The flexor digitorum brevis was extende d to the level of tendon and was mobilized medially and laterally to visualize the calcaneocuboid artem nt. Using a calix elevator, the periosteum was elevated using a rongeur. Using an osteotome, the cart ilage was removed off of the calcaneal cuboid joints. Area was irrigated and temporally fixated with a 0.062 K-wire. There was a cavity, which measured approximately 2 x 1.5 cm. At this time, Ceramen t was mixed with a bone chip allograft and packed into the defect. At this time, the flexor digitoru m brevis was transected at the level of the tendon and was mobilized to cover the heel. The abductor digiti minimi was identified. It was further followed to the level of the tendon insertion The tend on was mobilized and transected. The abductor digiti minimi was elevated and rotated 90 degrees to c over the fusion site and the bone graft and sutured in with 3-0 Vicryl. The flexor digitorum brevis was also sutured in with 3-0 Vicryl. At this time, the flap was further extended to the medial aspec t. Incision was made to the flexor hallucis longus and the flap was mobilized. The flap measured ap proximately 10 x 5 cm and was ____ to cover approximately 90% of the heel ulceration and was sutured with a 3-0 Vicryl. The donor site was covered with Integra bilayer and secured with skin nasima. T ourniquet had been deflated and minimal bleeding noted. At this time, a multiplane external fixator was applied using crossing smooth wires, which were then fixated with connecting nuts and bolts and t ensioned appropriately. The pin sites were cleansed with chlorhexidine and covered with the Acticoat foam sponges and the flap covered with Xeroform, 4 x 4's, Kerlix and bias. The patient tolerated th e procedure well and was transferred to the PACU with vital signs stable. POSTOPERATIVE PLAN: We will continue antibiotics. Recommend limb elevation. We will monitor the ex ternal fixator and pin sites. The patient will be medically managed by Dr. Alan Hassan. Dictated By: DAPHNE WILLIAMSON DPM RB/DEBRA Conf#: [id number] DID#: [id number] CC: SHONDA LAINEZ DPM;*EndCC*
[2019-04-22] MEDS: FAMOTIDINE 20 MG INJ IV SCH (23:50)
[2019-04-22] MEDS: METOPROLOL 25 MG TAB PO SCH (23:53)
[2019-04-22] MEDS: LOSARTAN 50 MG TAB PO SCH (23:53)
[2019-04-22] MEDS: ATORVASTATIN 80 MG TAB PO SCH (23:54)
[2019-04-23] VITALS (9 sets, daily range): BP systolic 128–158; BP diastolic 60–71; PULSE 65–86; RESP 17–20
[2019-04-23] MEDS: APIXABAN 5 MG TABLET PO SCH ×3 (01:14→21:49)
[2019-04-23] MEDS: LIOTHYRONINE 5 MCG TAB PO SCH ×3 (01:14→21:50)
[2019-04-23] MEDS: ACCU-CHEK XX SCH ×4 (02:00→19:55)
[2019-04-23] MEDS: CEFAZOLIN 1 GM/50 ML (PMX) 50 ML IVPB SCH ×3 (02:13→17:24)
[2019-04-23] MEDS: SOD CHLORIDE 0.9% 1,000 ML IV SCH (02:13)
[2019-04-23] MEDS: HYDROCODONE/APAP (5/325) TAB PO PRN ×2 (05:34→21:55)
[2019-04-23] MEDS: LEVOTHYROXINE 100 MCG TAB PO SCH (06:31)
[2019-04-23] MEDS ORDERED: metFORMIN 500 MG TAB PO SCH (07:50)
[2019-04-23] MEDS ORDERED: INSULIN ASPART [NOVOLOG] 3 ML PEN SC SCH ×3 (07:50→17:55)
[2019-04-23] MEDS: metFORMIN 500 MG TAB PO SCH ×2 (08:43→17:24)
[2019-04-23] MEDS: FAMOTIDINE 20 MG INJ IV SCH (08:44)
[2019-04-23] MEDS: CITALOPRAM 20 MG TAB PO SCH (08:45)
[2019-04-23] MEDS: LOSARTAN 50 MG TAB PO SCH ×2 (08:45→21:49)
[2019-04-23] MEDS: METOPROLOL 25 MG TAB PO SCH ×2 (08:47→21:49)
[2019-04-23] MEDS: INSULIN ASPART [NOVOLOG] 3 ML PEN SC SCH ×4 (08:50→21:52)
[2019-04-23] MEDS: CHLORTHALIDONE 25 MG TAB PO SCH (08:53)
--- NOTE | 2019-04-23 11:13 | CONS ---
Assessment/Plan Assessment/Plan Assessment/Plan (Daily) Right foot Charcot Right foot diabetic foot ulceration, failed outpatient treatment. History of right foot calcaneal osteomyelitis. Right foot mid foot instability. Diabetes with peripheral neuropathy. Obesity. History of deep venous thrombosis. Peripheral arterial disease, history of angioplasty, right anterior tibial Plan Dressings were changed and can remain clean dry and intact. No weight bearing to right lower extremity. Recommend physical therapy evaluation from bed to wheel chair. Weightbearing as tolerated to left lower extremity. Patient not expected to be ambulatory at this time. Previously patient has been predominantly wheel chair bound. Intra op cultures are pending and reviewed X- rays. Patient to continue prophylactic anbx for total of 3 days. Pain control as needed. Consultation Date/Type/Reason Admit Date/Time Apr 22, 2019 at 13:14 Initial Consult Date Date/Time of Note DATE: 04/23/19 TIME: 11:13 24 HR Interval Summary Free Text/Dictation No acute events overnight. Exam/Review of Systems Exam Vitals Vital Signs Date Temp Pulse Resp B/P (MAP) Pulse Ox O2 O2 Flow FiO2 Time Delivery Rate 04/23/19 97.0 69 18 150/67 100 Room Air 07:24 (94) 04/23/19 3.0 03:00 Intake and Output 04/22/19 04/22/19 04/23/19 1515:00 23:00 07:00 IntakeIntake Total 1900 ml 1975 ml OutputOutput Total 340 ml 500 ml BalanceBalance 1560 ml 1475 ml Exam Skin flap CFT less than 3 seconds Allograft secured with skin nasima No sign of wound dehisence external fixator in place and adequately aligned No pain on palpation to surgical site Pins are in alignment without hardware failure noted. Results Result Diagram: 04/23/19 0435 04/23/19 0435 Results 24hrs Laboratory Tests Test 04/22/19 14:24 04/22/19 20:59 04/23/19 04:35 04/23/19 07:41 Bedside Glucose 186 148 White Blood Count 15.3 #H Red Blood Count 2.97 L Hemoglobin 8.0 L Hematocrit 26.5 L Mean Corpuscular 89.2 Volume Mean Corpuscular 26.9 L Hemoglobin Mean Corpuscular 30.2 L Hemoglobin Concent Red Cell Distribution 15.2 H Width Platelet Count 282 Mean Platelet Volume 10.4 Immature Granulocytes 0.500 H % Neutrophils % 85.8 H Lymphocytes % 10.1 L Monocytes % 3.5 Eosinophils % 0.0 Basophils % 0.1 Nucleated Red Blood 0.0 Cells % Immature Granulocytes 0.080 H # Neutrophils # 13.1 H Lymphocytes # 1.5 Monocytes # 0.5 Eosinophils # 0.0 Basophils # 0.0 Nucleated Red Blood 0.0 Cells # Sodium Level 141 Potassium Level 4.8 Chloride Level 106 Carbon Dioxide Level 26 Anion Gap 9 Blood Urea Nitrogen 30 H Creatinine 1.25 H Est Glomerular 43 L Filtrat Rate mL/min Glucose Level 250 H Calcium Level 9.1 Lab Scanned Report REFERENCE LAB Test 04/23/19 08:42 04/23/19 10:27 Bedside Glucose 264 H 321 H Medications Medication Current Medications Sodium Chloride 1,000 ml @ 25 mls/hr Q24H IV Last administered on 04/23/19 02:13; Admin Dose 25 MLS/HR; Start 04/22/19 at 15:30 Ondansetron HCl (Zofran Inj) 4 mg Q6H PRN IV NAUSEA AND/OR VOMITING; Start 04/22/19 at 21:00 Famotidine (Pepcid Iv) 20 mg Q12 IV Last administered on 04/23/19 08:44; Admin Dose 20 MG; Start 04/22/19 at 21:00 Acetaminophen (Tylenol Tab) 650 mg Q6H PRN PO MILD PAIN(1-3)OR ELEVATED TEMP; Start 04/22/19 at 21:00 Apixaban (Eliquis) 5 mg BID PO Last administered on 04/23/19 08:46; Admin Dose 5 MG; Start 04/22/19 at 21:00 Atorvastatin Calcium (Lipitor) 80 mg QHS PO Last administered on 04/22/19at 23:54; Admin Dose 80 MG; Start 04/22/19 at 21:00 Chlorthalidone (Hygroton) 25 mg DAILY PO Last administered on 04/23/19 08:53; Admin Dose 25 MG; Start 04/23/19 at 09:00 Citalopram Hydrobromide (Celexa) 10 mg DAILY PO Last administered on 04/23/19at 08:45; Admin Dose 10 MG; Start 04/23/19 at 09:00 Acetaminophen/ Hydrocodone Bitart ([place] (5/325)) 1 tab Q6 PRN PO PAIN LEVEL 4- 10 Last administered on 04/23/19at 05:34; Admin Dose 1 TAB; Start 04/22/19 at 21:00 Levothyroxine Sodium (Synthroid) 100 mcg BEFORE BREAKFAST PO Last administered on 04/23/19at 06:31; Admin Dose 100 MCG; Start 04/23/19 at 07:00 Liothyronine Sodium (Cytomel) 5 mcg BID PO Last administered on 04/23/19at 08:46; Admin Dose 5 MCG; Start 04/22/19 at 21:00 Losartan Potassium (Cozaar) 50 mg BID PO Last administered on 04/23/19 08:45; Admin Dose 50 MG; Start 04/22/19 at 21:00 Metformin HCl (Glucophage) 500 mg WITH BREAKFAST DINNE PO Last administered on 04/23/19at 08:43; Admin Dose 500 MG; Start 04/23/19 at 07:50 Metoprolol Tartrate (Lopressor) 25 mg BID PO Last administered on 04/23/19at 08:47; Admin Dose 25 MG; Start 04/22/19 at 21:00 Diagnostic Test (Pha) (Accu-Chek) 1 ea 02 XX ; Start 04/23/19 at 02:00 Diagnostic Test (Pha) (Accu-Chek) 1 ea 2 HOURS AFTER MEALS XX Last administered on 04/23/19at 10:30; Admin Dose 1 EA; Start 04/23/19 at 09:50 Insulin Glargine (Lantus) 21 units DAILY@2000 SC ; Start 04/23/19 at 20:00 Insulin Aspart (Novolog Insulin Pen) 2 unit WITH BREAKFAST SC Last administered on 04/23/19at 08:49; Admin Dose 2 UNIT; Start 04/23/19 at 07:50 Insulin Aspart (Novolog Insulin Pen) 2 unit WITH LUNCH SC ; Start 04/23/19 at 11:40 Insulin Aspart (Novolog Insulin Pen) 2 unit WITH DINNER SC ; Start 04/23/19 at 17:55 Insulin Aspart (Novolog Insulin Pen) NOVOLOG *MILD* ALGORITHM WITH MEALS BEDTIME SC Last administered on 04/23/19at 08:50; Admin Dose 4 UNIT; Start 04/22/19 at 21:00 Cefazolin Sodium 50 ml @ 100 mls/hr Q8H IVPB Last administered on 04/23/19at 09:23; Admin Dose 100 MLS/HR; Start 04/23/19 at 01:30; Stop 04/26/19 at 01:29 SHONDA LAINEZ DPM Apr 23, 2019 11:13
--- NOTE | 2019-04-23 13:44 | PN ---
Date/Time of Note Date/Time of Note DATE: 04/23/19 TIME: 13:40 Assessment/Plan VTE Prophylaxis Risk score (from [facility])>0 risk: 8 SCD applied (from [facility]): Yes SCD contraindicated: bilateral LE trauma Pharmacological prophylaxis: heparin Lines/Catheters IV Catheter Type (from [facility]): Peripheral IV Assessment/Plan Problems: (1) Acute osteomyelitis of right calcaneus Status: Acute Comment: She is now roughly 12 hours post debridement of right heel with bone biopsy and bone cultures. Those results are pending. Dr. Michele is directing management for postsurgical issues. (2) Diabetes mellitus type 2 in obese Status: Chronic Comment: Her blood sugars drifted up however it turns out that her evening dose of Lantus was not given last night as the orders were officially log in the computer at 2105, and the protocol in the computer states the medicine is entered at 2100. Nursing did not contact me to notify me about this until this afternoon. Resume outpatient treatment protocol (3) Morbid obesity Status: Chronic Comment: Calorie restriction diet (4) Hyperlipidemia associated with type 2 diabetes mellitus Status: Chronic Comment: Continue with full dose statin therapy (5) Hypothyroidism Status: Chronic Comment: Continue on replacement therapy Qualifiers: Hypothyroidism type: acquired Qualified Codes: E03.9 - Hypothyroidism, unspecified (6) Essential hypertension Status: Chronic Comment: Adequate control (7) Diabetes, polyneuropathy Status: Chronic Comment: Continue with treatment. Qualifiers: Diabetes mellitus type: type 2 Qualified Codes: E11.42 - Type 2 diabetes mellitus with diabetic polyneuropathy Result Diagram: 04/23/19 0435 04/23/19 0435 Results 24hrs Laboratory Tests Test 04/22/19 14:24 04/22/19 20:59 04/23/19 04:35 04/23/19 07:41 Bedside Glucose 186 148 White Blood Count 15.3 #H Red Blood Count 2.97 L Hemoglobin 8.0 L Hematocrit 26.5 L Mean Corpuscular 89.2 Volume Mean Corpuscular 26.9 L Hemoglobin Mean Corpuscular 30.2 L Hemoglobin Concent Red Cell Distribution 15.2 H Width Platelet Count 282 Mean Platelet Volume 10.4 Immature Granulocytes 0.500 H % Neutrophils % 85.8 H Lymphocytes % 10.1 L Monocytes % 3.5 Eosinophils % 0.0 Basophils % 0.1 Nucleated Red Blood 0.0 Cells % Immature Granulocytes 0.080 H # Neutrophils # 13.1 H Lymphocytes # 1.5 Monocytes # 0.5 Eosinophils # 0.0 Basophils # 0.0 Nucleated Red Blood 0.0 Cells # Sodium Level 141 Potassium Level 4.8 Chloride Level 106 Carbon Dioxide Level 26 Anion Gap 9 Blood Urea Nitrogen 30 H Creatinine 1.25 H Est Glomerular 43 L Filtrat Rate mL/min Glucose Level 250 H Calcium Level 9.1 Lab Scanned Report REFERENCE LAB Test 04/23/19 08:42 04/23/19 10:27 04/23/19 12:35 Bedside Glucose 264 H 321 H 305 H Subjective 24 Hr Interval Summary Free Text/Dictation Patient reports as of last night and this morning she is having pain but now her pain is better Constitutional: no complaints (No fevers chills or sweats) Respiratory: no complaints Cardiovascular: no complaints Gastrointestinal: no complaints Genitourinary: no complaints Endocrine: no complaints Exam/Review of Systems Exam Vitals Vital Signs Date Temp Pulse Resp B/P (MAP) Pulse Ox O2 O2 Flow FiO2 Time Delivery Rate 04/23/19 97.0 69 18 150/67 100 Room Air 07:24 (94) 04/23/19 3.0 03:00 Intake and Output 04/22/19 04/22/19 04/23/19 1515:00 23:00 07:00 IntakeIntake Total 1900 ml 1975 ml OutputOutput Total 340 ml 500 ml BalanceBalance 1560 ml 1475 ml Constitutional: alert, oriented Neck: supple, non-tender Respiratory: clear to auscultation, normal air movement Cardiovascular: regular rate and rhythm, nl pulses Gastrointestinal: soft, nl liver, spleen, non-tender Extremities: other (Right foot and bandages freshly changed) Results Results 24hrs Laboratory Tests Test 04/22/19 14:24 04/22/19 20:59 04/23/19 04:35 04/23/19 07:41 Bedside Glucose 186 148 White Blood Count 15.3 #H Red Blood Count 2.97 L Hemoglobin 8.0 L Hematocrit 26.5 L Mean Corpuscular 89.2 Volume Mean Corpuscular 26.9 L Hemoglobin Mean Corpuscular 30.2 L Hemoglobin Concent Red Cell Distribution 15.2 H Width Platelet Count 282 Mean Platelet Volume 10.4 Immature Granulocytes 0.500 H % Neutrophils % 85.8 H Lymphocytes % 10.1 L Monocytes % 3.5 Eosinophils % 0.0 Basophils % 0.1 Nucleated Red Blood 0.0 Cells % Immature Granulocytes 0.080 H # Neutrophils # 13.1 H Lymphocytes # 1.5 Monocytes # 0.5 Eosinophils # 0.0 Basophils # 0.0 Nucleated Red Blood 0.0 Cells # Sodium Level 141 Potassium Level 4.8 Chloride Level 106 Carbon Dioxide Level 26 Anion Gap 9 Blood Urea Nitrogen 30 H Creatinine 1.25 H Est Glomerular 43 L Filtrat Rate mL/min Glucose Level 250 H Calcium Level 9.1 Lab Scanned Report REFERENCE LAB Test 04/23/19 08:42 04/23/19 10:27 04/23/19 12:35 Bedside Glucose 264 H 321 H 305 H Medications Medication Current Medications Sodium Chloride 1,000 ml @ 25 mls/hr Q24H IV Last administered on 04/23/19 02:13; Admin Dose 25 MLS/HR; Start 04/22/19 at 15:30 Ondansetron HCl (Zofran Inj) 4 mg Q6H PRN IV NAUSEA AND/OR VOMITING; Start 04/22/19 at 21:00 Famotidine (Pepcid Iv) 20 mg Q12 IV Last administered on 04/23/19 08:44; Admin Dose 20 MG; Start 04/22/19 at 21:00 Acetaminophen (Tylenol Tab) 650 mg Q6H PRN PO MILD PAIN(1-3)OR ELEVATED TEMP; Start 04/22/19 at 21:00 Apixaban (Eliquis) 5 mg BID PO Last administered on 04/23/19 08:46; Admin Dose 5 MG; Start 04/22/19 at 21:00 Atorvastatin Calcium (Lipitor) 80 mg QHS PO Last administered on 04/22/19at 23:54; Admin Dose 80 MG; Start 04/22/19 at 21:00 Chlorthalidone (Hygroton) 25 mg DAILY PO Last administered on 04/23/19 08:53; Admin Dose 25 MG; Start 04/23/19 at 09:00 Citalopram Hydrobromide (Celexa) 10 mg DAILY PO Last administered on 04/23/19 08:45; Admin Dose 10 MG; Start 04/23/19 at 09:00 Acetaminophen/ Hydrocodone Bitart ([place] (5/325)) 1 tab Q6 PRN PO PAIN LEVEL 4- 10 Last administered on 04/23/19 05:34; Admin Dose 1 TAB; Start 04/22/19 at 21:00 Levothyroxine Sodium (Synthroid) 100 mcg BEFORE BREAKFAST PO Last administered on 04/23/19 06:31; Admin Dose 100 MCG; Start 04/23/19 at 07:00 Liothyronine Sodium (Cytomel) 5 mcg BID PO Last administered on 04/23/19 08:46; Admin Dose 5 MCG; Start 04/22/19 at 21:00 Losartan Potassium (Cozaar) 50 mg BID PO Last administered on 04/23/19 08:45; Admin Dose 50 MG; Start 04/22/19 at 21:00 Metformin HCl (Glucophage) 500 mg WITH BREAKFAST DINNE PO Last administered on 04/23/19 08:43; Admin Dose 500 MG; Start 04/23/19 at 07:50 Metoprolol Tartrate (Lopressor) 25 mg BID PO Last administered on 04/23/19 08:47; Admin Dose 25 MG; Start 04/22/19 at 21:00 Diagnostic Test (Pha) (Accu-Chek) 1 ea 02 XX ; Start 04/23/19 at 02:00 Diagnostic Test (Pha) (Accu-Chek) 1 ea 2 HOURS AFTER MEALS XX Last administered on 04/23/19 10:30; Admin Dose 1 EA; Start 04/23/19 at 09:50 Insulin Glargine (Lantus) 21 units DAILY@2000 SC ; Start 04/23/19 at 20:00 Insulin Aspart (Novolog Insulin Pen) 2 unit WITH BREAKFAST SC Last administered on 04/23/19 08:49; Admin Dose 2 UNIT; Start 04/23/19 at 07:50 Insulin Aspart (Novolog Insulin Pen) 2 unit WITH LUNCH SC Last administered on 04/23/19 12:38; Admin Dose 2 UNIT; Start 04/23/19 at 11:40 Insulin Aspart (Novolog Insulin Pen) 2 unit WITH DINNER SC ; Start 04/23/19 at 17:55 Insulin Aspart (Novolog Insulin Pen) NOVOLOG *MILD* ALGORITHM WITH MEALS BEDTIME SC Last administered on 04/23/19 12:39; Admin Dose 5 UNIT; Start 04/22/19 at 21:00 Cefazolin Sodium 50 ml @ 100 mls/hr Q8H IVPB Last administered on 04/23/19at 09:23; Admin Dose 100 MLS/HR; Start 04/23/19 at 01:30; Stop 04/26/19 at 01:29 CHARLES BOWERS MD Apr 23, 2019 13:44
[2019-04-23] MEDS ORDERED: INSULIN GLARGINE [LANTus] (100 UNITS/ML) SYG SC SCH (20:00)
[2019-04-23] MEDS: ATORVASTATIN 80 MG TAB PO SCH (21:49)
[2019-04-23] MEDS: FAMOTIDINE 20 MG TAB PO SCH (21:50)
[2019-04-24 01:31] VITALS: BP 155/68; PULSE 77; RESP 18
[2019-04-24] MEDS: CEFAZOLIN 1 GM/50 ML (PMX) 50 ML IVPB SCH ×3 (01:45→18:05)
[2019-04-24] MEDS: ACCU-CHEK XX SCH ×4 (01:49→20:30)
[2019-04-24] MEDS: LEVOTHYROXINE 100 MCG TAB PO SCH (06:10)
[2019-04-24 06:27] VITALS: BP 151/68; PULSE 67
[2019-04-24 07:20] VITALS: BP 164/72; PULSE 71; RESP 18
--- NOTE | 2019-04-24 08:37 | PN ---
Date/Time of Note Date/Time of Note DATE: 04/24/19 TIME: 08:34 Assessment/Plan VTE Prophylaxis Risk score (from [facility] [place])>0 risk: 9 SCD applied (from [facility] [place]): Yes SCD contraindicated: bilateral LE trauma Pharmacological prophylaxis: apixaban Lines/Catheters IV Catheter Type (from [facility]): Peripheral IV Assessment/Plan Problems: (1) Status post debridement of ulcer of heel Status: Acute Comment: Table postop I do not believe there is been a great deal of bleeding. In addition she has GI prophylaxis. This is an iron deficiency anemia and get a go ahead and give her iron but also transfuse 1 unit of packed red blood cells (2) Acute osteomyelitis of right calcaneus Status: Acute Comment: Pending cultures. (3) Essential hypertension Status: Chronic Comment: Adjustment on beta-blockade slightly, on full dose angiotensin II receptor andie agent (4) Anemia Status: Chronic Comment: Replace with parenteral Ferrlecit 2 doses today, one transfusion given the lowness of the hemoglobin Qualifiers: Anemia type: iron deficiency Iron deficiency anemia type: unspecified iron deficiency Qualified Codes: D50.9 - Iron deficiency anemia, unspecified (5) Hypothyroidism Status: Chronic Comment: Stable on replacement Qualifiers: Hypothyroidism type: acquired Qualified Codes: E03.9 - Hypothyroidism, unspecified (6) Hyperlipidemia associated with type 2 diabetes mellitus Status: Chronic Comment: Continue with statin therapy (7) Recurrent deep vein thrombosis (DVT) Status: Chronic Comment: Stable on apixaban (8) Diabetes mellitus type 2 in obese Status: Chronic Comment: Adjust medications (9) Obesity (BMI 30-39.9) Status: Chronic Comment: Calorie restriction diet Result Diagram: 04/24/19 0434 04/23/19 0435 Results 24hrs Laboratory Tests Test 04/23/19 08:42 04/23/19 10:27 04/23/19 12:35 04/23/19 14:39 Bedside Glucose 264 H 321 H 305 H 331 H Test 04/23/19 17:23 04/23/19 19:25 04/23/19 21:46 04/24/19 01:47 Bedside Glucose 328 H 385 H 348 H 250 H Test 04/24/19 04:34 White Blood Count 11.8 #H Red Blood Count 2.46 L Hemoglobin 6.7 *L Hematocrit 22.1 L Mean Corpuscular Volume 89.8 Mean Corpuscular 27.2 L Hemoglobin Mean Corpuscular 30.3 L Hemoglobin Concent Red Cell Distribution 15.6 H Width Platelet Count 264 Mean Platelet Volume 10.6 H Immature Granulocytes % 0.300 Neutrophils % 61.1 Lymphocytes % 28.5 Monocytes % 9.0 Eosinophils % 0.8 Basophils % 0.3 Nucleated Red Blood 0.0 Cells % Immature Granulocytes # 0.040 H Neutrophils # 7.2 Lymphocytes # 3.4 H Monocytes # 1.1 H Eosinophils # 0.1 Basophils # 0.0 Nucleated Red Blood 0.0 Cells # Subjective 24 Hr Interval Summary Free Text/Dictation Patient reports she feels a little bit tired. Constitutional: no complaints Respiratory: no complaints Cardiovascular: no complaints (Typically denies chest pain palpitations orthopnea or PND) Gastrointestinal: no complaints Genitourinary: no complaints Neurologic: no complaints Exam/Review of Systems Exam Vitals Vital Signs Date Temp Pulse Resp B/P (MAP) Pulse Ox O2 O2 Flow FiO2 Time Delivery Rate 04/24/19 98.0 71 18 164/72 98 Room Air 07:20 (102) 04/23/19 3.0 03:00 Intake and Output 04/23/19 04/23/19 04/24/19 1515:00 23:00 07:00 IntakeIntake Total 610 ml 910 ml 685 ml BalanceBalance 610 ml 910 ml 685 ml Constitutional: alert, oriented Respiratory: clear to auscultation, normal air movement Cardiovascular: regular rate and rhythm, nl pulses Gastrointestinal: soft, nl liver, spleen, non-tender Results Results 24hrs Laboratory Tests Test 04/23/19 08:42 04/23/19 10:27 04/23/19 12:35 04/23/19 14:39 Bedside Glucose 264 H 321 H 305 H 331 H Test 04/23/19 17:23 04/23/19 19:25 04/23/19 21:46 04/24/19 01:47 Bedside Glucose 328 H 385 H 348 H 250 H Test 04/24/19 04:34 White Blood Count 11.8 #H Red Blood Count 2.46 L Hemoglobin 6.7 *L Hematocrit 22.1 L Mean Corpuscular Volume 89.8 Mean Corpuscular 27.2 L Hemoglobin Mean Corpuscular 30.3 L Hemoglobin Concent Red Cell Distribution 15.6 H Width Platelet Count 264 Mean Platelet Volume 10.6 H Immature Granulocytes % 0.300 Neutrophils % 61.1 Lymphocytes % 28.5 Monocytes % 9.0 Eosinophils % 0.8 Basophils % 0.3 Nucleated Red Blood 0.0 Cells % Immature Granulocytes # 0.040 H Neutrophils # 7.2 Lymphocytes # 3.4 H Monocytes # 1.1 H Eosinophils # 0.1 Basophils # 0.0 Nucleated Red Blood 0.0 Cells # Medications Medication Current Medications Sodium Chloride 1,000 ml @ 25 mls/hr Q24H IV Last administered on 04/23/19 02:13; Admin Dose 25 MLS/HR; Start 04/22/19 at 15:30 Ondansetron HCl (Zofran Inj) 4 mg Q6H PRN IV NAUSEA AND/OR VOMITING; Start 04/22/19 at 21:00 Acetaminophen (Tylenol Tab) 650 mg Q6H PRN PO MILD PAIN(1-3)OR ELEVATED TEMP; Start 04/22/19 at 21:00 Apixaban (Eliquis) 5 mg BID PO Last administered on 04/23/19 21:49; Admin Dose 5 MG; Start 04/22/19 at 21:00 Atorvastatin Calcium (Lipitor) 80 mg QHS PO Last administered on 04/23/19 21:49; Admin Dose 80 MG; Start 04/22/19 at 21:00 Chlorthalidone (Hygroton) 25 mg DAILY PO Last administered on 04/23/19 08:53; Admin Dose 25 MG; Start 04/23/19 at 09:00 Citalopram Hydrobromide (Celexa) 10 mg DAILY PO Last administered on 04/23/19 08:45; Admin Dose 10 MG; Start 04/23/19 at 09:00 Acetaminophen/ Hydrocodone Bitart ([place] (5/325)) 1 tab Q6 PRN PO PAIN LEVEL 4- 10 Last administered on 04/23/19 21:55; Admin Dose 1 TAB; Start 04/22/19 at 21:00 Levothyroxine Sodium (Synthroid) 100 mcg BEFORE BREAKFAST PO Last administered on 04/24/19 06:10; Admin Dose 100 MCG; Start 04/23/19 at 07:00 Liothyronine Sodium (Cytomel) 5 mcg BID PO Last administered on 04/23/19 21:50; Admin Dose 5 MCG; Start 04/22/19 at 21:00 Losartan Potassium (Cozaar) 50 mg BID PO Last administered on 04/23/19 21:49; Admin Dose 50 MG; Start 04/22/19 at 21:00 Metformin HCl (Glucophage) 500 mg WITH BREAKFAST DINNE PO Last administered on 04/23/19 17:24; Admin Dose 500 MG; Start 04/23/19 at 07:50 Metoprolol Tartrate (Lopressor) 25 mg BID PO Last administered on 04/23/19 21:49; Admin Dose 25 MG; Start 04/22/19 at 21:00 Diagnostic Test (Pha) (Accu-Chek) 1 ea 02 XX Last administered on 04/24/19 01:49; Admin Dose 1 EA; Start 04/23/19 at 02:00 Diagnostic Test (Pha) (Accu-Chek) 1 ea 2 HOURS AFTER MEALS XX Last administered on 04/23/19 19:55; Admin Dose 1 EA; Start 04/23/19 at 09:50 Insulin Glargine (Lantus) 21 units DAILY@2000 SC Last administered on 04/23/19 21:51; Admin Dose 21 UNITS; Start 04/23/19 at 20:00 Insulin Aspart (Novolog Insulin Pen) 2 unit WITH BREAKFAST SC Last administered on 04/23/19 08:49; Admin Dose 2 UNIT; Start 04/23/19 at 07:50 Insulin Aspart (Novolog Insulin Pen) 2 unit WITH LUNCH SC Last administered on 04/23/19 12:38; Admin Dose 2 UNIT; Start 04/23/19 at 11:40 Insulin Aspart (Novolog Insulin Pen) 2 unit WITH DINNER SC Last administered on 04/23/19 17:27; Admin Dose 2 UNIT; Start 04/23/19 at 17:55 Insulin Aspart (Novolog Insulin Pen) NOVOLOG *MILD* ALGORITHM WITH MEALS BEDTIME SC Last administered on 04/23/19 21:52; Admin Dose 4 UNIT; Start 04/22/19 at 21:00 Cefazolin Sodium 50 ml @ 100 mls/hr Q8H IVPB Last administered on 04/24/19 01:45; Admin Dose 100 MLS/HR; Start 04/23/19 at 01:30; Stop 04/26/19 at 01:29 Famotidine (Pepcid) 20 mg Q12 PO Last administered on 04/23/19at 21:50; Admin Dose 20 MG; Start 04/23/19 at 21:00 Ferric Sodium Gluconate Complex 125 mg/Sodium Chloride 100 ml @ 100 mls/hr ONCE ONCE IVPB ; Start 04/24/19 at 10:00; Stop 04/24/19 at 10:59 Ferric Sodium Gluconate Complex 125 mg/Sodium Chloride 110 ml @ 110 mls/hr DAILY@1300 IVPB ; Start 04/24/19 at 13:00; Stop 04/28/19 at 13:59 CHARLES BOWERS MD Apr 24, 2019 08:37
[2019-04-24] MEDS: METOPROLOL 50 MG TAB PO SCH ×2 (09:05→21:39)
[2019-04-24] MEDS: LIOTHYRONINE 5 MCG TAB PO SCH ×2 (09:06→21:39)
[2019-04-24] MEDS: FAMOTIDINE 20 MG TAB PO SCH ×2 (09:06→21:39)
[2019-04-24] MEDS: metFORMIN 500 MG TAB PO SCH ×2 (09:06→17:50)
[2019-04-24] MEDS: CITALOPRAM 20 MG TAB PO SCH (09:06)
[2019-04-24] MEDS: CHLORTHALIDONE 25 MG TAB PO SCH (09:07)
[2019-04-24] MEDS: LOSARTAN 50 MG TAB PO SCH ×2 (09:07→21:40)
[2019-04-24] MEDS: APIXABAN 5 MG TABLET PO SCH ×2 (09:07→21:39)
[2019-04-24] MEDS: INSULIN ASPART [NOVOLOG] 3 ML PEN SC SCH ×6 (09:14→21:00)
[2019-04-24] MEDS ORDERED: INSULIN GLARGINE [LANTus] (100 UNITS/ML) SYG SC ONE (09:30)
[2019-04-24] MEDS ORDERED: SOD FERRIC GLUC COMPLX 125 MG in SOD CHLORIDE 0.9% 100 ML IVPB ONE (10:00)
--- NOTE | 2019-04-24 12:31 | CONS ---
Assessment/Plan Assessment/Plan Assessment/Plan (Daily) Right foot Charcot Right foot diabetic foot ulceration, failed outpatient treatment. History of right foot calcaneal osteomyelitis. Right foot mid foot instability. Diabetes with peripheral neuropathy. Obesity. History of deep venous thrombosis. Peripheral arterial disease, history of angioplasty, right anterior tibial Plan Dressings were changed and can remain clean dry and intact. No weight bearing to right lower extremity. Recommend physical therapy evaluation from bed to wheel chair. Weightbearing as tolerated to left lower extremity. Patient not expected to be ambulatory at this time. Previously patient has been predominantly wheel chair bound. Intra op cultures are pending currently showing GNR and diptheroids. Patient to continue prophylactic anbx for total of 3 days. Pain control as needed. Additional sutures were placed to the surgical site to assist with secure placement. Recommend ID consult for abx therapy. Patient was noted to be anemic and blood being planned for transfusion along with iron supplementation. Consultation Date/Type/Reason Admit Date/Time Apr 22, 2019 at 13:14 Initial Consult Date Date/Time of Note DATE: 04/24/19 TIME: 12:30 24 HR Interval Summary Free Text/Dictation No fevers overnight. Denies acute events overnight. Exam/Review of Systems Exam Vitals Vital Signs Date Temp Pulse Resp B/P (MAP) Pulse Ox O2 O2 Flow FiO2 Time Delivery Rate 04/24/19 98.0 71 18 164/72 98 Room Air 07:20 (102) 04/23/19 3.0 03:00 Intake and Output 04/23/19 04/23/19 04/24/19 1515:00 23:00 07:00 IntakeIntake Total 610 ml 910 ml 685 ml BalanceBalance 610 ml 910 ml 685 ml Exam Skin flap CFT less than 3 seconds Allograft secured with skin nasima No sign of wound dehisence external fixator in place and adequately aligned No pain on palpation to surgical site Pins are in alignment without hardware failure noted. Results Result Diagram: 04/24/19 0434 04/23/19 0435 Results 24hrs Laboratory Tests Test 04/23/19 12:35 04/23/19 14:39 04/23/19 17:23 04/23/19 19:25 Bedside Glucose 305 H 331 H 328 H 385 H Test 04/23/19 21:46 04/24/19 01:47 04/24/19 04:34 04/24/19 08:34 Bedside Glucose 348 H 250 H 219 White Blood Count 11.8 #H Red Blood Count 2.46 L Hemoglobin 6.7 *L Hematocrit 22.1 L Mean Corpuscular Volume 89.8 Mean Corpuscular 27.2 L Hemoglobin Mean Corpuscular 30.3 L Hemoglobin Concent Red Cell Distribution 15.6 H Width Platelet Count 264 Mean Platelet Volume 10.6 H Immature Granulocytes % 0.300 Neutrophils % 61.1 Lymphocytes % 28.5 Monocytes % 9.0 Eosinophils % 0.8 Basophils % 0.3 Nucleated Red Blood 0.0 Cells % Immature Granulocytes # 0.040 H Neutrophils # 7.2 Lymphocytes # 3.4 H Monocytes # 1.1 H Eosinophils # 0.1 Basophils # 0.0 Nucleated Red Blood 0.0 Cells # Test 04/24/19 10:09 Bedside Glucose 265 H Medications Medication Current Medications Sodium Chloride 1,000 ml @ 25 mls/hr Q24H IV Last administered on 04/23/19at 02:13; Admin Dose 25 MLS/HR; Start 04/22/19 at 15:30 Ondansetron HCl (Zofran Inj) 4 mg Q6H PRN IV NAUSEA AND/OR VOMITING; Start 04/22/19 at 21:00 Acetaminophen (Tylenol Tab) 650 mg Q6H PRN PO MILD PAIN(1-3)OR ELEVATED TEMP; Start 04/22/19 at 21:00 Apixaban (Eliquis) 5 mg BID PO Last administered on 04/24/19at 09:07; Admin Dose 5 MG; Start 04/22/19 at 21:00 Atorvastatin Calcium (Lipitor) 80 mg QHS PO Last administered on 04/23/19at 21:49; Admin Dose 80 MG; Start 04/22/19 at 21:00 Chlorthalidone (Hygroton) 25 mg DAILY PO Last administered on 04/24/19at 09:07; Admin Dose 25 MG; Start 04/23/19 at 09:00 Citalopram Hydrobromide (Celexa) 10 mg DAILY PO Last administered on 04/24/19at 09:06; Admin Dose 10 MG; Start 04/23/19 at 09:00 Acetaminophen/ Hydrocodone Bitart ([place] (5/325)) 1 tab Q6 PRN PO PAIN LEVEL 4- 10 Last administered on 04/23/19 21:55; Admin Dose 1 TAB; Start 04/22/19 at 21:00 Levothyroxine Sodium (Synthroid) 100 mcg BEFORE BREAKFAST PO Last administered on 04/24/19 06:10; Admin Dose 100 MCG; Start 04/23/19 at 07:00 Liothyronine Sodium (Cytomel) 5 mcg BID PO Last administered on 04/24/19 09:06; Admin Dose 5 MCG; Start 04/22/19 at 21:00 Losartan Potassium (Cozaar) 50 mg BID PO Last administered on 04/24/19 09:07; Admin Dose 50 MG; Start 04/22/19 at 21:00 Metformin HCl (Glucophage) 500 mg WITH BREAKFAST DINNE PO Last administered on 04/24/19 09:06; Admin Dose 500 MG; Start 04/23/19 at 07:50 Diagnostic Test (Pha) (Accu-Chek) 1 ea 02 XX Last administered on 04/24/19 01:49; Admin Dose 1 EA; Start 04/23/19 at 02:00 Diagnostic Test (Pha) (Accu-Chek) 1 ea 2 HOURS AFTER MEALS XX Last administered on 04/23/19 19:55; Admin Dose 1 EA; Start 04/23/19 at 09:50 Insulin Aspart (Novolog Insulin Pen) NOVOLOG *MILD* ALGORITHM WITH MEALS BEDTIME SC Last administered on 04/24/19 09:14; Admin Dose 2 UNIT; Start 04/22/19 at 21:00 Cefazolin Sodium 50 ml @ 100 mls/hr Q8H IVPB Last administered on 04/24/19 09:07; Admin Dose 100 MLS/HR; Start 04/23/19 at 01:30; Stop 04/26/19 at 01:29 Famotidine (Pepcid) 20 mg Q12 PO Last administered on 04/24/19 09:06; Admin Dose 20 MG; Start 04/23/19 at 21:00 Ferric Sodium Gluconate Complex 125 mg/Sodium Chloride 110 ml @ 110 mls/hr DAILY@1300 IVPB ; Start 04/24/19 at 13:00; Stop 04/28/19 at 13:59 Metoprolol Tartrate (Lopressor) 50 mg BID PO Last administered on 7/3/19at 09:05; Admin Dose 50 MG; Start 04/24/19 at 09:00 Insulin Aspart (Novolog Insulin Pen) 4 unit WITH BREAKFAST SC ; Start 04/25/19 at 07:50 Insulin Aspart (Novolog Insulin Pen) 4 unit WITH LUNCH SC ; Start 04/24/19 at 11:40 Insulin Aspart (Novolog Insulin Pen) 4 unit WITH DINNER SC ; Start 04/24/19 at 17:55 Insulin Glargine (Lantus) 25 units DAILY@2000 SC ; Start 04/24/19 at 20:00 SHONDA LAINEZ DPM Apr 24, 2019 12:31
[2019-04-24] MEDS: HYDROCODONE/APAP (5/325) TAB PO PRN (13:57)
[2019-04-24 14:08] VITALS: BP 139/63; PULSE 62; RESP 18
[2019-04-24] MEDS: SOD CHLORIDE 0.9% 1,000 ML IV SCH (15:30)
[2019-04-24] MEDS: SOD FERRIC GLUC COMPLX 125 MG in SOD CHLORIDE 0.9% 100 ML IVPB SCH (16:47)
[2019-04-24 20:01] VITALS: BP 158/71; PULSE 63; RESP 20
[2019-04-24] MEDS: INSULIN GLARGINE [LANTus] (100 UNITS/ML) SYG SC SCH (21:37)
[2019-04-24] MEDS: ATORVASTATIN 80 MG TAB PO SCH (21:39)
[2019-04-25] MEDS: CEFAZOLIN 1 GM/50 ML (PMX) 50 ML IVPB SCH ×2 (01:38→10:06)
[2019-04-25] MEDS: ACCU-CHEK XX SCH ×4 (01:42→19:55)
[2019-04-25 02:00] VITALS: BP 148/65; RESP 18
[2019-04-25] MEDS: LEVOTHYROXINE 100 MCG TAB PO SCH (06:18)
[2019-04-25 07:25] VITALS: BP 138/73; PULSE 63; RESP 18
[2019-04-25] MEDS: INSULIN ASPART [NOVOLOG] 3 ML PEN SC SCH ×7 (07:50→21:12)
[2019-04-25] MEDS: FAMOTIDINE 20 MG TAB PO SCH ×2 (08:24→21:06)
[2019-04-25] MEDS: METOPROLOL 50 MG TAB PO SCH ×2 (08:25→21:05)
[2019-04-25] MEDS: CHLORTHALIDONE 25 MG TAB PO SCH (08:25)
[2019-04-25] MEDS: LOSARTAN 50 MG TAB PO SCH ×2 (08:26→21:05)
[2019-04-25] MEDS: LIOTHYRONINE 5 MCG TAB PO SCH ×2 (08:26→21:05)
[2019-04-25] MEDS: CITALOPRAM 20 MG TAB PO SCH (08:26)
[2019-04-25] MEDS: APIXABAN 5 MG TABLET PO SCH ×2 (08:26→21:06)
[2019-04-25] MEDS: metFORMIN 500 MG TAB PO SCH ×2 (08:29→17:52)
--- NOTE | 2019-04-25 12:16 | PN ---
Date/Time of Note Date/Time of Note DATE: 04/25/19 TIME: 12:13 Assessment/Plan VTE Prophylaxis Risk score (from [facility] [place]0 risk: 7 SCD applied (from [facility] [place]): Yes SCD contraindicated: bilateral LE trauma Pharmacological prophylaxis: heparin Lines/Catheters IV Catheter Type (from [facility]): Peripheral IV Assessment/Plan Problems: (1) Status post debridement of ulcer of heel Status: Acute Comment: An external fixation device. We now have culture reports showing E. coli growing there. Antibiotics will be adjusted to reflect this. In addition I will ask infectious disease real estate consultant to make sure that they do not have any additional suggestions to protect this individual. (2) Acute osteomyelitis of right calcaneus Status: Acute Comment: As above. (3) Essential hypertension Status: Chronic Comment: Good control of blood pressure (4) Hypothyroidism Status: Chronic Comment: Stable on replacement therapy Qualifiers: Hypothyroidism type: acquired Qualified Codes: E03.9 - Hypothyroidism, unspecified (5) Hyperlipidemia associated with type 2 diabetes mellitus Status: Chronic Comment: Table on statin therapy (6) Recurrent deep vein thrombosis (DVT) Status: Chronic Comment: Continues with novel oral anticoagulant therapy (7) Diabetes mellitus type 2 in obese Status: Chronic Comment: Adequate control (8) Diabetes, polyneuropathy Status: Chronic Comment: Stable at this time Qualifiers: Diabetes mellitus type: type 2 Qualified Codes: E11.42 - Type 2 diabetes mellitus with diabetic polyneuropathy (9) Morbid obesity Status: Chronic Comment: Calorie restriction diet Result Diagram: 04/25/19 0447 04/25/197 Results 24hrs Laboratory Tests Test 04/24/19 12:51 04/24/19 17:42 04/24/19 17:45 04/24/19 19:57 Bedside Glucose 311 H 186 178 189 Test 04/24/19 21:35 04/25/19 04:47 04/25/19 06:49 04/25/19 08:28 Bedside Glucose 143 91 White Blood Count 11.6 H Red Blood Count 3.07 #L Hemoglobin 8.3 #L Hematocrit 27.3 #L Mean Corpuscular 88.9 Volume Mean Corpuscular 27.0 L Hemoglobin Mean Corpuscular 30.4 L Hemoglobin Concent Red Cell 15.3 H Distribution Width Platelet Count 273 Mean Platelet 10.6 H Volume Immature 0.600 H Granulocytes % Neutrophils % 58.2 Lymphocytes % 29.0 Monocytes % 9.2 Eosinophils % 2.7 Basophils % 0.3 Nucleated Red Blood 0.0 Cells % Immature 0.070 H Granulocytes # Neutrophils # 6.7 Lymphocytes # 3.4 H Monocytes # 1.1 H Eosinophils # 0.3 Basophils # 0.0 Nucleated Red Blood 0.0 Cells # Sodium Level 141 Potassium Level 4.6 Chloride Level 110 Carbon Dioxide 26 Level Anion Gap 5 Blood Urea Nitrogen 33 H Creatinine 1.29 H Est Glomerular 41 L Filtrat Rate mL/min Glucose Level 73 Calcium Level 8.8 Lab Scanned Report BLOOD TRANSFUSION Subjective 24 Hr Interval Summary Free Text/Dictation Patient reports that she is feeling okay but still little tired Constitutional: no complaints (No fevers chills or sweats) Respiratory: no complaints Cardiovascular: no complaints Gastrointestinal: no complaints Genitourinary: no complaints Musculoskeletal: other (Right foot pain well controlled) Exam/Review of Systems Exam Vitals Vital Signs Date Temp Pulse Resp B/P (MAP) Pulse Ox O2 O2 Flow FiO2 Time Delivery Rate 04/25/19 98.5 63 18 138/73 96 07:25 (94) 04/25/19 Room Air 02:00 04/23/19 3.0 03:00 Intake and Output 04/24/19 04/24/19 04/25/19 1515:00 23:00 07:00 IntakeIntake Total 635 ml 410 ml 50 ml OutputOutput Total 1 ml BalanceBalance 635 ml 409 ml 50 ml Constitutional: alert, oriented Neck: supple, non-tender Respiratory: clear to auscultation, normal air movement Cardiovascular: regular rate and rhythm, nl pulses Extremities: other (Right lower extremity and external fixation cage) Results Results 24hrs Laboratory Tests Test 04/24/19 12:51 04/24/19 17:42 04/24/19 17:45 04/24/19 19:57 Bedside Glucose 311 H 186 178 189 Test 04/24/19 21:35 04/25/19 04:47 04/25/19 06:49 04/25/19 08:28 Bedside Glucose 143 91 White Blood Count 11.6 H Red Blood Count 3.07 #L Hemoglobin 8.3 #L Hematocrit 27.3 #L Mean Corpuscular 88.9 Volume Mean Corpuscular 27.0 L Hemoglobin Mean Corpuscular 30.4 L Hemoglobin Concent Red Cell 15.3 H Distribution Width Platelet Count 273 Mean Platelet 10.6 H Volume Immature 0.600 H Granulocytes % Neutrophils % 58.2 Lymphocytes % 29.0 Monocytes % 9.2 Eosinophils % 2.7 Basophils % 0.3 Nucleated Red Blood 0.0 Cells % Immature 0.070 H Granulocytes # Neutrophils # 6.7 Lymphocytes # 3.4 H Monocytes # 1.1 H Eosinophils # 0.3 Basophils # 0.0 Nucleated Red Blood 0.0 Cells # Sodium Level 141 Potassium Level 4.6 Chloride Level 110 Carbon Dioxide 26 Level Anion Gap 5 Blood Urea Nitrogen 33 H Creatinine 1.29 H Est Glomerular 41 L Filtrat Rate mL/min Glucose Level 73 Calcium Level 8.8 Lab Scanned Report BLOOD TRANSFUSION Medications Medication Current Medications Sodium Chloride 1,000 ml @ 25 mls/hr Q24H IV Last administered on 04/23/19 02:13; Admin Dose 25 MLS/HR; Start 04/22/19 at 15:30 Ondansetron HCl (Zofran Inj) 4 mg Q6H PRN IV NAUSEA AND/OR VOMITING; Start 04/22/19 at 21:00 Acetaminophen (Tylenol Tab) 650 mg Q6H PRN PO MILD PAIN(1-3)OR ELEVATED TEMP; Start 04/22/19 at 21:00 Apixaban (Eliquis) 5 mg BID PO Last administered on 04/25/19 08:26; Admin Dose 5 MG; Start 04/22/19 at 21:00 Atorvastatin Calcium (Lipitor) 80 mg QHS PO Last administered on 04/24/19 21:39; Admin Dose 80 MG; Start 04/22/19 at 21:00 Chlorthalidone (Hygroton) 25 mg DAILY PO Last administered on 04/25/19 08:25; Admin Dose 25 MG; Start 04/23/19 at 09:00 Citalopram Hydrobromide (Celexa) 10 mg DAILY PO Last administered on 04/25/19 08:26; Admin Dose 10 MG; Start 04/23/19 at 09:00 Acetaminophen/ Hydrocodone Bitart ([place] (5/325)) 1 tab Q6 PRN PO PAIN LEVEL 4- 10 Last administered on 04/24/19 13:57; Admin Dose 1 TAB; Start 04/22/19 at 21:00 Levothyroxine Sodium (Synthroid) 100 mcg BEFORE BREAKFAST PO Last administered on 04/25/19 06:18; Admin Dose 100 MCG; Start 04/23/19 at 07:00 Liothyronine Sodium (Cytomel) 5 mcg BID PO Last administered on 04/25/19 08:26; Admin Dose 5 MCG; Start 04/22/19 at 21:00 Losartan Potassium (Cozaar) 50 mg BID PO Last administered on 04/25/19 08:26; Admin Dose 50 MG; Start 04/22/19 at 21:00 Metformin HCl (Glucophage) 500 mg WITH BREAKFAST DINNE PO Last administered on 04/25/19 08:29; Admin Dose 500 MG; Start 04/23/19 at 07:50 Diagnostic Test (Pha) (Accu-Chek) 1 ea 02 XX Last administered on 04/24/19 01:49; Admin Dose 1 EA; Start 04/23/19 at 02:00 Diagnostic Test (Pha) (Accu-Chek) 1 ea 2 HOURS AFTER MEALS XX Last administered on 04/24/19 20:30; Admin Dose 1 EA; Start 04/23/19 at 09:50 Insulin Aspart (Novolog Insulin Pen) NOVOLOG *MILD* ALGORITHM WITH MEALS BEDTIME SC Last administered on 04/24/19 17:49; Admin Dose 1 UNIT; Start 04/22/19 at 21:00 Famotidine (Pepcid) 20 mg Q12 PO Last administered on 04/25/19 08:24; Admin Dose 20 MG; Start 04/23/19 at 21:00 Ferric Sodium Gluconate Complex 125 mg/Sodium Chloride 110 ml @ 110 mls/hr DAILY@1300 IVPB Last administered on 04/24/19 16:47; Admin Dose 110 MLS/HR; Start 04/24/19 at 13:00; Stop 04/28/19 at 13:59 Metoprolol Tartrate (Lopressor) 50 mg BID PO Last administered on 04/25/19 08:25; Admin Dose 50 MG; Start 04/24/19 at 09:00 Insulin Aspart (Novolog Insulin Pen) 4 unit WITH BREAKFAST SC Last administered on 04/25/19 08:31; Admin Dose 4 UNIT; Start 04/25/19 at 07:50 Insulin Aspart (Novolog Insulin Pen) 4 unit WITH LUNCH SC Last administered on 04/24/19at 12:56; Admin Dose 4 UNIT; Start 04/24/19 at 11:40 Insulin Aspart (Novolog Insulin Pen) 4 unit WITH DINNER SC Last administered on 04/24/19at 17:50; Admin Dose 4 UNIT; Start 04/24/19 at 17:55 Insulin Glargine (Lantus) 25 units DAILY@2000 SC Last administered on 04/24/19at 21:37; Admin Dose 25 UNITS; Start 04/24/19 at 20:00 Cefepime HCl 50 ml @ 100 mls/hr Q12 IVPB ; Start 04/25/19 at 13:00; Stop 06/06/19 at 12:59 Lactated Ringer's 500 ml @ 500 mls/hr Q1H ONCE IV ; Start 04/25/19 at 12:30; Stop 04/25/19 at 13:29; Status CHARLES SANCHEZ MD Apr 25, 2019 12:16
[2019-04-25] MEDS ORDERED: LACTATED RINGER'S 500 ML IV ONE (12:30)
[2019-04-25] MEDS: HYDROCODONE/APAP (5/325) TAB PO PRN (12:52)
--- NOTE | 2019-04-25 12:52 | CONS ---
Assessment/Plan Assessment/Plan Assessment/Plan (Daily) Right foot Charcot Right foot diabetic foot ulceration, failed outpatient treatment. History of right foot calcaneal osteomyelitis. Right foot mid foot instability. Diabetes with peripheral neuropathy. Obesity. History of deep venous thrombosis. Peripheral arterial disease, history of angioplasty, right anterior tibial Plan Dressings were changed and can remain clean dry and intact. No weight bearing to right lower extremity. Recommend physical therapy evaluation from bed to wheel chair. Weightbearing as tolerated to left lower extremity. Patient not expected to be ambulatory at this time. Previously patient has been predominantly wheel chair bound. Intra op cultures are pending currently showing e.coli and corynebacterium. Complete prophylactic anbx for total of 3 days. Pain control as needed. Recommend ID consult for abx therapy. Appreciate medical management from Dr. Hassan. Consultation Date/Type/Reason Admit Date/Time Apr 22, 2019 at 13:14 Initial Consult Date Date/Time of Note DATE: 04/25/19 TIME: 12:52 24 HR Interval Summary Free Text/Dictation No acute events overnight. Exam/Review of Systems Exam Vitals Vital Signs Date Temp Pulse Resp B/P (MAP) Pulse Ox O2 O2 Flow FiO2 Time Delivery Rate 04/25/19 98.5 63 18 138/73 96 07:25 (94) 04/25/19 Room Air 02:00 04/23/19 3.0 03:00 Intake and Output 04/24/19 04/24/19 04/25/19 1515:00 23:00 07:00 IntakeIntake Total 635 ml 410 ml 50 ml OutputOutput Total 1 ml BalanceBalance 635 ml 409 ml 50 ml Exam Skin flap CFT less than 3 seconds Allograft secured with skin nasima No sign of wound dehisence external fixator in place and adequately aligned No pain on palpation to surgical site Pins are in alignment without hardware failure noted. Results Result Diagram: 04/25/19 0447 04/25/19446 Results 24hrs Laboratory Tests Test 04/24/19 17:42 04/24/19 17:45 04/24/19 19:57 04/24/19 21:35 Bedside Glucose 186 178 189 143 Test 04/25/19 04:47 04/25/19 06:49 04/25/19 08:28 04/25/19 12:44 White Blood Count 11.6 H Red Blood Count 3.07 #L Hemoglobin 8.3 #L Hematocrit 27.3 #L Mean Corpuscular 88.9 Volume Mean Corpuscular 27.0 L Hemoglobin Mean Corpuscular 30.4 L Hemoglobin Concent Red Cell 15.3 H Distribution Width Platelet Count 273 Mean Platelet 10.6 H Volume Immature 0.600 H Granulocytes % Neutrophils % 58.2 Lymphocytes % 29.0 Monocytes % 9.2 Eosinophils % 2.7 Basophils % 0.3 Nucleated Red Blood 0.0 Cells % Immature 0.070 H Granulocytes # Neutrophils # 6.7 Lymphocytes # 3.4 H Monocytes # 1.1 H Eosinophils # 0.3 Basophils # 0.0 Nucleated Red Blood 0.0 Cells # Sodium Level 141 Potassium Level 4.6 Chloride Level 110 Carbon Dioxide 26 Level Anion Gap 5 Blood Urea Nitrogen 33 H Creatinine 1.29 H Est Glomerular 41 L Filtrat Rate mL/min Glucose Level 73 Calcium Level 8.8 Lab Scanned Report BLOOD TRANSFUSION Bedside Glucose 91 120 Medications Medication Current Medications Sodium Chloride 1,000 ml @ 25 mls/hr Q24H IV Last administered on 04/23/19at 02:13; Admin Dose 25 MLS/HR; Start 04/22/19 at 15:30 Ondansetron HCl (Zofran Inj) 4 mg Q6H PRN IV NAUSEA AND/OR VOMITING; Start 04/22/19 at 21:00 Acetaminophen (Tylenol Tab) 650 mg Q6H PRN PO MILD PAIN(1-3)OR ELEVATED TEMP; Start 04/22/19 at 21:00 Apixaban (Eliquis) 5 mg BID PO Last administered on 04/25/19 08:26; Admin Dose 5 MG; Start 04/22/19 at 21:00 Atorvastatin Calcium (Lipitor) 80 mg QHS PO Last administered on 04/24/19 21: 39; Admin Dose 80 MG; Start 04/22/19 at 21:00 Chlorthalidone (Hygroton) 25 mg DAILY PO Last administered on 04/25/19 08:25; Admin Dose 25 MG; Start 04/23/19 at 09:00 Citalopram Hydrobromide (Celexa) 10 mg DAILY PO Last administered on 04/25/19 08:26; Admin Dose 10 MG; Start 04/23/19 at 09:00 Acetaminophen/ Hydrocodone Bitart ([place] (5/325)) 1 tab Q6 PRN PO PAIN LEVEL 4- 10 Last administered on 04/24/19 13:57; Admin Dose 1 TAB; Start 04/22/19 at 21:00 Levothyroxine Sodium (Synthroid) 100 mcg BEFORE BREAKFAST PO Last administered on 04/25/19 06:18; Admin Dose 100 MCG; Start 04/23/19 at 07:00 Liothyronine Sodium (Cytomel) 5 mcg BID PO Last administered on 04/25/19 08:26; Admin Dose 5 MCG; Start 04/22/19 at 21:00 Losartan Potassium (Cozaar) 50 mg BID PO Last administered on 04/25/19 08:26; Admin Dose 50 MG; Start 04/22/19 at 21:00 Metformin HCl (Glucophage) 500 mg WITH BREAKFAST DINNE PO Last administered on 04/25/19 08:29; Admin Dose 500 MG; Start 04/23/19 at 07:50 Diagnostic Test (Pha) (Accu-Chek) 1 ea 02 XX Last administered on 04/24/19 01:49; Admin Dose 1 EA; Start 04/23/19 at 02:00 Diagnostic Test (Pha) (Accu-Chek) 1 ea 2 HOURS AFTER MEALS XX Last administered on 04/24/19 20:30; Admin Dose 1 EA; Start 04/23/19 at 09:50 Insulin Aspart (Novolog Insulin Pen) NOVOLOG *MILD* ALGORITHM WITH MEALS BEDTIME SC Last administered on 04/24/19 17:49; Admin Dose 1 UNIT; Start 04/22/19 at 21:00 Famotidine (Pepcid) 20 mg Q12 PO Last administered on 04/25/19 08:24; Admin Dose 20 MG; Start 04/23/19 at 21:00 Ferric Sodium Gluconate Complex 125 mg/Sodium Chloride 110 ml @ 110 mls/hr DAILY@1300 IVPB Last administered on 04/24/19 16:47; Admin Dose 110 MLS/HR; Start 04/24/19 at 13:00; Stop 04/28/19 at 13:59 Metoprolol Tartrate (Lopressor) 50 mg BID PO Last administered on 04/25/19 08:25; Admin Dose 50 MG; Start 04/24/19 at 09:00 Insulin Aspart (Novolog Insulin Pen) 4 unit WITH BREAKFAST SC Last administered on 04/25/19at 08:31; Admin Dose 4 UNIT; Start 04/25/19 at 07:50 Insulin Aspart (Novolog Insulin Pen) 4 unit WITH LUNCH SC Last administered on 04/24/19at 12:56; Admin Dose 4 UNIT; Start 04/24/19 at 11:40 Insulin Aspart (Novolog Insulin Pen) 4 unit WITH DINNER SC Last administered on 04/24/19at 17:50; Admin Dose 4 UNIT; Start 04/24/19 at 17:55 Insulin Glargine (Lantus) 25 units DAILY@2000 SC Last administered on 04/24/19at 21:37; Admin Dose 25 UNITS; Start 04/24/19 at 20:00 Cefepime HCl 50 ml @ 100 mls/hr Q12 IVPB ; Start 04/25/19 at 13:00; Stop 06/06/19 at 12:59 Lactated Ringer's 500 ml @ 500 mls/hr Q1H ONCE IV ; Start 04/25/19 at 12:30; Stop 04/25/19 at 13:29 SHONDA LAINEZ DPTwila Apr 25, 2019 12:52
[2019-04-25] MEDS ORDERED: CEFEPIME 2GM/50 ML (PMX) 50 ML IVPB SCH (13:00)
--- NOTE | 2019-04-25 13:07 | CONS ---
Assessment/Plan Assessment/Plan Hospital Course (Demo Recall) ID NOTE => Patient well-known to Dr. Gardner from multiple past consultations TOTAL ABX DAY # 3.5 CURRENT ABX=>CEFEPIME S/P ANCEF 04/22 - 04/2504/25/19 0447 04/25/19 0447 RECENT EVENTS * POD #3 -> S/P 04/22/19 * DATE OF OPERATION: 04/22/2019 SURGEON: Valentino Conde DPM & SERVICE STATION ATTENDANT: Amado Michele DPM * PROCEDURES PERFORMED: * 1. Right foot excisional debridement of skin, subcutaneous tissue, muscle and bone with biopsy of bone. * 2. Right foot mid foot lateral column fusion with Cerament and allograft bone chips. * 3. Right foot flexor digitorum brevis muscle flap. * 4. Right foot abductor digiti minimi muscle flap. * 5. Right foot fasciocutaneous rotation advancement random flap. * 6. Right foot application of allograft Integra bilayer. * 7. Right foot application of multiplane external fixator. * PATHOLOGY: Bone cultures and bone pathology. 24H INTERVAL SUMMARY * Resting, no new issues, no c/o offered, VSS, no fevers = coping ok with pain * MICRO: * 04/22/2019 right heel wound cx: ANAEROBIC CULTURE Preliminary No anaerobe isolated at 48 hours * TISSUE (BIOPSY) CULTURE Final Organism 1 ESCHERICHIA COLI QUANTITY SCANT GROWTH Organism 2 CORYNEBACTERIUM SPECIES QUANTITY SCANT GROWTH E COLI M.I.C. RX --------- --- AMPICILLIN >=32 R CEFAZOLIN I CEFOTAXIME S CIPROFLOXACIN >=4 R GENTAMICIN <=1 S LEVOFLOXACIN >=8 R TOBRAMYCIN <=1 S TRIMETHOPRIM/SULFAMETHOXAZOLE >=320 R TISSUE (BIOPSY) CULTURE Final (continued) CORYN SPS Zone Size RX --------- --- * AMPICILLIN S * AMPICILLIN/SULBACTAM S * CEFAZOLIN S * CEFOTAXIME S * CEFUROXIME S * CIPROFLOXACIN R * CLINDAMYCIN R * ERYTHROMYCIN R * PENICILLIN S * VANCOMYCIN S RADIOLOGY/IMAGING: * 04/22/2019 RIGHT ANKLE XR: Interval placement of external fixator device and pinning of the talus and calcaneus. * 04/22/2019 RIGHT FOOT XR: Interval postsurgical changes from pinning of the talus and calcaneus and placement of external fixator device. * 04/22/2019 RIGHT LEG XR: Interval postsurgical changes from pinning of the talus and calcaneus and placement of external fixator device. EXAM GENERAL: Afebrile, VSS, NAD HEENT: Unremarkable NECK: Supple, trachea midline. CHEST: Equal chest rise bilaterally, without dyspnea on observation HEART: Pulse RRR ABDOMEN: Soft EXTREMITIES: Warm, edema w/R-wound vac ID ASSESSMENT 67 yo F admit with: 1. Right foot Charcot 2. Right foot diabetic foot ulceration, failed outpatient treatment. 3. History of right foot calcaneal osteomyelitis on 12/30/17 MRI: TREATED 4. Right foot mid foot instability. 5. Diabetes with peripheral neuropathy. 6. Obesity. 7. History of deep venous thrombosis. 8. Peripheral arterial disease, history of angioplasty, right anterior tibial. 9. Hypertension. 10. Chronic kidney disease (-)MRSA Nares INVASIVES: PICC ABX ALLERGY: KNDA CURRENT ABX: ABX DAY # 3.5 => CEFEPIME #1 => Change to Ceftriaxone 2gm IV daily S/P ANCEF 04/22 - 04/25 ID RECOMMENDATIONS 1. The E.Coli is sensitive to CEFTRIAXONE and she is growing opportunistic Corynebacterium also sensitive to Ceftriaxone * Ceftriaxone is once daily dosing and tolerated well -- Will change Cefepime to Ceftriaxone 2gm IV daily per obesity * Ceftriaxone has improved empiric coverage for GP organisms over Cefepime . Consultation Date/Type/Reason Admit Date/Time Apr 22, 2019 at 13:14 Initial Consult Date Date/Time of Note DATE: 04/25/19 TIME: 12:48 Exam/Review of Systems Exam Vitals Vital Signs Date Temp Pulse Resp B/P (MAP) Pulse Ox O2 O2 Flow FiO2 Time Delivery Rate 04/25/19 98.5 63 18 138/73 96 07:25 (94) 04/25/19 Room Air 02:00 04/23/19 3.0 03:00 Intake and Output 04/24/19 04/24/19 04/25/19 1515:00 23:00 07:00 IntakeIntake Total 635 ml 410 ml 50 ml OutputOutput Total 1 ml BalanceBalance 635 ml 409 ml 50 ml Results Result Diagram: 04/25/19 0447 04/25/19 0447 Results 24hrs Laboratory Tests Test 04/24/19 12:51 04/24/19 17:42 04/24/19 17:45 04/24/19 19:57 Bedside Glucose 311 H 186 178 189 Test 04/24/19 21:35 04/25/19 04:47 04/25/19 06:49 04/25/19 08:28 Bedside Glucose 143 91 White Blood Count 11.6 H Red Blood Count 3.07 #L Hemoglobin 8.3 #L Hematocrit 27.3 #L Mean Corpuscular 88.9 Volume Mean Corpuscular 27.0 L Hemoglobin Mean Corpuscular 30.4 L Hemoglobin Concent Red Cell 15.3 H Distribution Width Platelet Count 273 Mean Platelet 10.6 H Volume Immature 0.600 H Granulocytes % Neutrophils % 58.2 Lymphocytes % 29.0 Monocytes % 9.2 Eosinophils % 2.7 Basophils % 0.3 Nucleated Red Blood 0.0 Cells % Immature 0.070 H Granulocytes # Neutrophils # 6.7 Lymphocytes # 3.4 H Monocytes # 1.1 H Eosinophils # 0.3 Basophils # 0.0 Nucleated Red Blood 0.0 Cells # Sodium Level 141 Potassium Level 4.6 Chloride Level 110 Carbon Dioxide 26 Level Anion Gap 5 Blood Urea Nitrogen 33 H Creatinine 1.29 H Est Glomerular 41 L Filtrat Rate mL/min Glucose Level 73 Calcium Level 8.8 Lab Scanned Report BLOOD TRANSFUSION Medications Medication Current Medications Sodium Chloride 1,000 ml @ 25 mls/hr Q24H IV Last administered on 04/23/19at 02:13; Admin Dose 25 MLS/HR; Start 04/22/19 at 15:30 Ondansetron HCl (Zofran Inj) 4 mg Q6H PRN IV NAUSEA AND/OR VOMITING; Start 04/22/19 at 21:00 Acetaminophen (Tylenol Tab) 650 mg Q6H PRN PO MILD PAIN(1-3)OR ELEVATED TEMP; Start 04/22/19 at 21:00 Apixaban (Eliquis) 5 mg BID PO Last administered on 04/25/19at 08:26; Admin Dose 5 MG; Start 04/22/19 at 21:00 Atorvastatin Calcium (Lipitor) 80 mg QHS PO Last administered on 04/24/19at 21:39; Admin Dose 80 MG; Start 04/22/19 at 21:00 Chlorthalidone (Hygroton) 25 mg DAILY PO Last administered on 04/25/19 08:25; Admin Dose 25 MG; Start 04/23/19 at 09:00 Citalopram Hydrobromide (Celexa) 10 mg DAILY PO Last administered on 04/25/19 08:26; Admin Dose 10 MG; Start 04/23/19 at 09:00 Acetaminophen/ Hydrocodone Bitart ([place] (5/325)) 1 tab Q6 PRN PO PAIN LEVEL 4- 10 Last administered on 04/24/19 13:57; Admin Dose 1 TAB; Start 04/22/19 at 21:00 Levothyroxine Sodium (Synthroid) 100 mcg BEFORE BREAKFAST PO Last administered on 04/25/19 06:18; Admin Dose 100 MCG; Start 04/23/19 at 07:00 Liothyronine Sodium (Cytomel) 5 mcg BID PO Last administered on 04/25/19 08:26; Admin Dose 5 MCG; Start 04/22/19 at 21:00 Losartan Potassium (Cozaar) 50 mg BID PO Last administered on 04/25/19 08:26; Admin Dose 50 MG; Start 04/22/19 at 21:00 Metformin HCl (Glucophage) 500 mg WITH BREAKFAST DINNE PO Last administered on 04/25/19 08:29; Admin Dose 500 MG; Start 04/23/19 at 07:50 Diagnostic Test (Pha) (Accu-Chek) 1 ea 02 XX Last administered on 04/24/19 01:49; Admin Dose 1 EA; Start 04/23/19 at 02:00 Diagnostic Test (Pha) (Accu-Chek) 1 ea 2 HOURS AFTER MEALS XX Last administered on 04/24/19 20:30; Admin Dose 1 EA; Start 04/23/19 at 09:50 Insulin Aspart (Novolog Insulin Pen) NOVOLOG *MILD* ALGORITHM WITH MEALS BEDTIME SC Last administered on 04/24/19 17:49; Admin Dose 1 UNIT; Start 04/22/19 at 21:00 Famotidine (Pepcid) 20 mg Q12 PO Last administered on 04/25/19 08:24; Admin Dose 20 MG; Start 04/23/19 at 21:00 Ferric Sodium Gluconate Complex 125 mg/Sodium Chloride 110 ml @ 110 mls/hr DAILY@1300 IVPB Last administered on 04/24/19 16:47; Admin Dose 110 MLS/HR; Start 04/24/19 at 13:00; Stop 04/28/19 at 13:59 Metoprolol Tartrate (Lopressor) 50 mg BID PO Last administered on 04/25/19at 08:25; Admin Dose 50 MG; Start 04/24/19 at 09:00 Insulin Aspart (Novolog Insulin Pen) 4 unit WITH BREAKFAST SC Last administered on 04/25/19at 08:31; Admin Dose 4 UNIT; Start 04/25/19 at 07:50 Insulin Aspart (Novolog Insulin Pen) 4 unit WITH LUNCH SC Last administered on 04/24/19at 12:56; Admin Dose 4 UNIT; Start 04/24/19 at 11:40 Insulin Aspart (Novolog Insulin Pen) 4 unit WITH DINNER SC Last administered on 04/24/19at 17:50; Admin Dose 4 UNIT; Start 04/24/19 at 17:55 Insulin Glargine (Lantus) 25 units DAILY@2000 SC Last administered on 04/24/19at 21:37; Admin Dose 25 UNITS; Start 04/24/19 at 20:00 Cefepime HCl 50 ml @ 100 mls/hr Q12 IVPB ; Start 04/25/19 at 13:00; Stop 06/06/19 at 12:59 Lactated Ringer's 500 ml @ 500 mls/hr Q1H ONCE IV ; Start 04/25/19 at 12:30; Stop 04/25/19 at 13:29 FITO JETER NP Apr 25, 2019 12:58
[2019-04-25] MEDS ORDERED: GLUCOSE GEL 15 GRAM TUBE PO PRN ×2 (13:30)
[2019-04-25] MEDS ORDERED: GLUCAGON 1 MG INJ IM PRN (13:30)
[2019-04-25] MEDS ORDERED: DEXTROSE 50% 50 ML SYRINGE IV PRN ×2 (13:30)
[2019-04-25] MEDS ORDERED: GLUCOSE GEL 15 GRAM TUBE BUCCAL PRN (13:30)
[2019-04-25] MEDS: SOD FERRIC GLUC COMPLX 125 MG in SOD CHLORIDE 0.9% 100 ML IVPB SCH (14:06)
[2019-04-25 14:34] VITALS: BP 130/75; PULSE 66; RESP 18
[2019-04-25] MEDS: CEFTRIAXONE 2 GM/50 ML (PMX) 50 ML IVPB SCH (15:29)
[2019-04-25 19:15] VITALS: BP 147/65; PULSE 70; RESP 20
[2019-04-25] MEDS: ATORVASTATIN 80 MG TAB PO SCH (21:06)
[2019-04-25] MEDS: INSULIN GLARGINE [LANTus] (100 UNITS/ML) SYG SC SCH (21:13)
[2019-04-26] MEDS: ACCU-CHEK XX SCH ×4 (02:00→19:55)
[2019-04-26] MEDS: LEVOTHYROXINE 100 MCG TAB PO SCH (06:06)
[2019-04-26 07:36] VITALS: BP 173/76; RESP 20
[2019-04-26] MEDS: INSULIN ASPART [NOVOLOG] 3 ML PEN SC SCH ×6 (07:50→20:32)
[2019-04-26] MEDS: LIOTHYRONINE 5 MCG TAB PO SCH ×2 (08:47→20:16)
[2019-04-26] MEDS: CITALOPRAM 20 MG TAB PO SCH (08:48)
[2019-04-26] MEDS: APIXABAN 5 MG TABLET PO SCH ×2 (08:48→20:16)
[2019-04-26] MEDS: LOSARTAN 50 MG TAB PO SCH ×2 (08:48→20:16)
[2019-04-26] MEDS: FAMOTIDINE 20 MG TAB PO SCH ×2 (08:49→20:33)
[2019-04-26] MEDS: CHLORTHALIDONE 25 MG TAB PO SCH (08:49)
[2019-04-26] MEDS: METOPROLOL 50 MG TAB PO SCH ×2 (08:49→20:17)
[2019-04-26] MEDS: metFORMIN 500 MG TAB PO SCH ×2 (08:51→18:01)
[2019-04-26] MEDS: HYDROCODONE/APAP (5/325) TAB PO PRN (09:36)
--- NOTE | 2019-04-26 11:16 | CONS ---
Assessment/Plan Assessment/Plan Hospital Course (Demo Recall) ID NOTE TOTAL ABX DAY # 4.5 CURRENT ABX=>Ceftriaxone 2GM IV s/p CEFEPIME X1 04/25 S/P ANCEF 04/22 - 04/25 RECENT EVENTS * POD #4 -> S/P 04/22/19 * DATE OF OPERATION: 04/22/2019 SURGEON: Valentino Conde DPM & ASSEMBLER RUBBER FOOTWEAR: Amado Michele DPM * PROCEDURES PERFORMED: Complex RIGHT CHARCOT FOOT debridement, flap, bone fusion, external fixator 24H INTERVAL SUMMARY * A/A/O Yoruba speaking -- able to use translate lisa to communicate * Resting, no new issues, no c/o offered, VSS, no fevers = coping ok with pain * WBC normalized, ESR 65, renal fx stable MICRO: * 04/22/2019 right heel wound cx: ANAEROBIC CULTURE Preliminary No anaerobe isolated at 48 hours * TISSUE (BIOPSY) CULTURE Final Organism 1 ESCHERICHIA COLI QUANTITY SCANT GROWTH Organism 2 CORYNEBACTERIUM SPECIES QUANTITY SCANT GROWTH E COLI M.I.C. RX --------- --- AMPICILLIN >=32 R CEFAZOLIN I CEFOTAXIME S CIPROFLOXACIN >=4 R GENTAMICIN <=1 S LEVOFLOXACIN >=8 R TOBRAMYCIN <=1 S TRIMETHOPRIM/SULFAMETHOXAZOLE >=320 R TISSUE (BIOPSY) CULTURE Final (continued) CORYN SPS Zone Size RX --------- --- * AMPICILLIN S * AMPICILLIN/SULBACTAM S * CEFAZOLIN S * CEFOTAXIME S * CEFUROXIME S * CIPROFLOXACIN R * CLINDAMYCIN R * ERYTHROMYCIN R * PENICILLIN S * VANCOMYCIN S RADIOLOGY/IMAGING: * 04/22/2019 RIGHT ANKLE XR: Interval placement of external fixator device and pinning of the talus and calcaneus. * 04/22/2019 RIGHT FOOT XR: Interval postsurgical changes from pinning of the talus and calcaneus and placement of external fixator device. * 04/22/2019 RIGHT LEG XR: Interval postsurgical changes from pinning of the talus and calcaneus and placement of external fixator device. EXAM GENERAL: Afebrile, VSS, NAD HEENT: Unremarkable NECK: Supple, trachea midline. CHEST: Equal chest rise bilaterally, without dyspnea on observation HEART: Pulse RRR ABDOMEN: Soft EXTREMITIES: Warm, edema w/R-wound vac ID ASSESSMENT 67 yo F admit with: 1. Right foot Charcot 2. Right foot diabetic foot ulceration, failed outpatient treatment. * POD #4 -> S/P 04/22/19 Complex RIGHT CHARCOT FOOT debridement, flap, bone fusion, external fixator 3. History of right foot calcaneal osteomyelitis on 12/30/17 MRI: TREATED 4. Right foot mid foot instability. 5. Diabetes with peripheral neuropathy. 6. Obesity. 7. History of deep venous thrombosis. 8. Peripheral arterial disease, history of angioplasty, right anterior tibial. 9. Hypertension. 10. Chronic kidney disease (-)MRSA Nares INVASIVES: PICC ABX ALLERGY: KNDA CURRENT ABX: ABX DAY #Ceftriaxone 2GM IV s/p CEFEPIME X1 04/25 S/P ANCEF 04/22 - 04/25 ID RECOMMENDATIONS 1. The E.Coli is sensitive to CEFTRIAXONE and she is growing opportunistic Corynebacterium also sensitive to Ceftriaxone * Ceftriaxone is once daily dosing and tolerated well -- Rx Ceftriaxone 2gm IV daily per obesity * Ceftriaxone has improved empiric coverage for GP organisms over Cefepime 4. Anticipate DC on Ceftriaxone 2GM IV to complete 28 days from 04/22/19 5. F/U with [facility] . Consultation Date/Type/Reason Admit Date/Time Apr 22, 2019 at 13:14 Initial Consult Date Date/Time of Note DATE: 04/26/19 TIME: 11:10 Exam/Review of Systems Exam Vitals Vital Signs Date Temp Pulse Resp B/P (MAP) Pulse Ox O2 O2 Flow FiO2 Time Delivery Rate 04/26/19 98.6 20 173/76 93 07:36 (108) 04/25/19 70 Room Air 19:15 04/23/19 3.0 03:00 Intake and Output 04/25/19 04/25/19 04/26/19 1515:00 23:00 07:00 IntakeIntake Total 350 ml 900 ml BalanceBalance 350 ml 900 ml Results Result Diagram: 04/26/19 0441 04/26/19 0441 Results 24hrs Laboratory Tests Test 04/25/19 12:44 04/25/19 15:00 04/25/19 17:51 04/25/19 21:08 Bedside Glucose 120 205 224 H 210 Test 04/26/19 02:06 04/26/19 04:41 04/26/19 08:03 04/26/19 10:40 Bedside Glucose 158 116 156 White Blood Count 9.9 Red Blood Count 2.86 L Hemoglobin 7.8 L Hematocrit 25.2 L Mean Corpuscular Volume 88.1 Mean Corpuscular 27.3 L Hemoglobin Mean Corpuscular 31.0 L Hemoglobin Concent Red Cell Distribution 15.6 H Width Platelet Count 271 Mean Platelet Volume 10.5 H Immature Granulocytes % 1.000 H Neutrophils % 55.0 Lymphocytes % 32.0 Monocytes % 8.6 Eosinophils % 3.1 Basophils % 0.3 Nucleated Red Blood 0.2 H Cells % Immature Granulocytes # 0.100 H Neutrophils # 5.4 Lymphocytes # 3.2 H Monocytes # 0.9 Eosinophils # 0.3 Basophils # 0.0 Nucleated Red Blood 0.0 Cells # Erythrocyte 65 H Sedimentation Rate Sodium Level 140 Potassium Level 4.3 Chloride Level 108 Carbon Dioxide Level 26 Anion Gap 6 Blood Urea Nitrogen 28 H Creatinine 1.25 H Est Glomerular Filtrat 43 L Rate mL/min Glucose Level 117 # Calcium Level 8.5 Phosphorus Level 3.1 Magnesium Level 1.8 Total Bilirubin 0.3 Direct Bilirubin 0.00 Indirect Bilirubin 0.3 Aspartate Amino 16 Transf (AST/SGOT) Alanine 16 Aminotransferase (ALT/SG PT) Alkaline Phosphatase 72 Total Protein 5.9 L Albumin 2.8 L Globulin 3.10 Albumin/Globulin Ratio 0.90 Medications Medication Current Medications Ondansetron HCl (Zofran Inj) 4 mg Q6H PRN IV NAUSEA AND/OR VOMITING; Start 04/22/19 at 21:00 Acetaminophen (Tylenol Tab) 650 mg Q6H PRN PO MILD PAIN(1-3)OR ELEVATED TEMP; Start 04/22/19 at 21:00 Apixaban (Eliquis) 5 mg BID PO Last administered on 04/26/19at 08:48; Admin Dose 5 MG; Start 04/22/19 at 21:00 Atorvastatin Calcium (Lipitor) 80 mg QHS PO Last administered on 04/25/19at 21:06; Admin Dose 80 MG; Start 04/22/19 at 21:00 Chlorthalidone (Hygroton) 25 mg DAILY PO Last administered on 04/26/19at 08:49; Admin Dose 25 MG; Start 04/23/19 at 09:00 Citalopram Hydrobromide (Celexa) 10 mg DAILY PO Last administered on 04/26/19 08:48; Admin Dose 10 MG; Start 04/23/19 at 09:00 Acetaminophen/ Hydrocodone Bitart ([place] (5/325)) 1 tab Q6 PRN PO PAIN LEVEL 4- 10 Last administered on 04/26/19 09:36; Admin Dose 1 TAB; Start 04/22/19 at 21:00 Levothyroxine Sodium (Synthroid) 100 mcg BEFORE BREAKFAST PO Last administered on 04/26/19 06:06; Admin Dose 100 MCG; Start 04/23/19 at 07:00 Liothyronine Sodium (Cytomel) 5 mcg BID PO Last administered on 04/26/19 08:47; Admin Dose 5 MCG; Start 04/22/19 at 21:00 Losartan Potassium (Cozaar) 50 mg BID PO Last administered on 04/26/19 08:48; Admin Dose 50 MG; Start 04/22/19 at 21:00 Metformin HCl (Glucophage) 500 mg WITH BREAKFAST DINNE PO Last administered on 04/26/19 08:51; Admin Dose 500 MG; Start 04/23/19 at 07:50 Diagnostic Test (Pha) (Accu-Chek) 1 ea 02 XX Last administered on 04/24/19 01:49; Admin Dose 1 EA; Start 04/23/19 at 02:00 Diagnostic Test (Pha) (Accu-Chek) 1 ea 2 HOURS AFTER MEALS XX Last administered on 04/26/19 10:41; Admin Dose 1 EA; Start 04/23/19 at 09:50 Insulin Aspart (Novolog Insulin Pen) NOVOLOG *MILD* ALGORITHM WITH MEALS BEDTIM E SC Last administered on 04/25/19 21:12; Admin Dose 1 UNIT; Start 04/22/19 at 21:00 Famotidine (Pepcid) 20 mg Q12 PO Last administered on 04/26/19 08:49; Admin Dose 20 MG; Start 04/23/19 at 21:00 Ferric Sodium Gluconate Complex 125 mg/Sodium Chloride 110 ml @ 110 mls/hr DAILY@1300 IVPB Last administered on 04/25/19 14:06; Admin Dose 110 MLS/HR; Start 04/24/19 at 13:00; Stop 04/28/19 at 13:59 Metoprolol Tartrate (Lopressor) 50 mg BID PO Last administered on 04/26/19at 08:49; Admin Dose 50 MG; Start 04/24/19 at 09:00 Insulin Aspart (Novolog Insulin Pen) 4 unit WITH BREAKFAST SC Last administere d on 04/26/19at 08:44; Admin Dose 4 UNIT; Start 04/25/19 at 07:50 Insulin Aspart (Novolog Insulin Pen) 4 unit WITH LUNCH SC Last administered on 04/25/19at 12:54; Admin Dose 4 UNIT; Start 04/24/19 at 11:40 Insulin Aspart (Novolog Insulin Pen) 4 unit WITH DINNER SC Last administered on 04/25/19at 17:55; Admin Dose 4 UNIT; Start 04/24/19 at 17:55 Insulin Glargine (Lantus) 25 units DAILY@2000 SC Last administered on 04/25/19at 21:13; Admin Dose 25 UNITS; Start 04/24/19 at 20:00 Miscellaneous Information 1 ea NOTE XX ; Start 04/25/19 at 13:30 Glucose (Glutose) 15 gm Q15M PRN PO DECREASED GLUCOSE; Start 04/25/19 at 13:30 Glucose (Glutose) 22.5 gm Q15M PRN PO DECREASED GLUCOSE; Start 04/25/19 at 13:30 Dextrose (D50w Syringe) 25 ml Q15M PRN IV DECREASED GLUCOSE; Start 04/25/19 at 13:30 Dextrose (D50w Syringe) 50 ml Q15M PRN IV DECREASED GLUCOSE; Start 04/25/19 at 13:30 Glucagon (Glucagen) 1 mg Q15M PRN IM DECREASED GLUCOSE; Start 04/25/19 at 13:30 Glucose (Glutose) 15 gm Q15M PRN BUCCAL DECREASED GLUCOSE; Start 04/25/19 at 13:30 Ceftriaxone Sodium 50 ml @ 100 mls/hr Q24H IVPB Last administered on 04/25/19at 15:29; Admin Dose 100 MLS/HR; Start 04/25/19 at 14:30 FITO JETER NP Apr 26, 2019 11:16
[2019-04-26] MEDS: SOD FERRIC GLUC COMPLX 125 MG in SOD CHLORIDE 0.9% 100 ML IVPB SCH (13:29)
[2019-04-26 14:30] VITALS: BP 148/74; PULSE 65; RESP 18
[2019-04-26] MEDS: CEFTRIAXONE 2 GM/50 ML (PMX) 50 ML IVPB SCH (15:32)
--- NOTE | 2019-04-26 18:05 | PN ---
Date/Time of Note Date/Time of Note DATE: 04/26/19 TIME: 17:59 Assessment/Plan VTE Prophylaxis Risk score (from Ns)>0 risk: 8 SCD applied (from Ns): Yes Pharmacological prophylaxis: apixaban Lines/Catheters IV Catheter Type (from Nrs): Peripheral IV Assessment/Plan Problems: (1) Non-pressure chronic ulcer of other part of right foot with necrosis of muscle Status: Chronic Comment: S/p flap and placement of ex-fix. Needs rehab for transfer and ambulation instructions (2) Status post debridement of ulcer of heel Status: Acute Comment: S/p flap. Cont. ceftriaxone through 05/19 per ID (3) Right calcaneal fracture Status: Acute Comment: S/p ex-fix. Needs rehab (4) Acute osteomyelitis of right calcaneus Status: Acute Comment: Cont. ceftriaxone through 05/19 per ID (5) Diabetes mellitus type 2 in obese Status: Chronic Comment: Fair glycemic control but glucose increasing in afternoons and evenings. Increase Novolog from 4 to 6 for lunch and dinner (6) Essential hypertension Status: Chronic Comment: Bp elevated. Add amlodipine 2.5 mg bid and monitor (7) Hypothyroidism Status: Chronic Comment: Cont. LT4 daily Qualifiers: Hypothyroidism type: acquired Qualified Codes: E03.9 - Hypothyroidism, unspecified (8) Hyperlipidemia associated with type 2 diabetes mellitus Status: Chronic Comment: Cont. statin (9) Recurrent deep vein thrombosis (DVT) Status: Chronic Comment: Cont. apixiban (10) Anemia Status: Chronic Comment: Likely due to chronic illness. Expect improvement once osteomyelitis treated Qualifiers: Anemia type: iron deficiency Iron deficiency anemia type: unspecified iron deficiency Qualified Codes: D50.9 - Iron deficiency anemia, unspecified Result Diagram: 04/26/19 0441 04/26/19 0441 Results 24hrs Laboratory Tests Test 04/25/19 21:08 04/26/19 02:06 04/26/19 04:41 04/26/19 08:03 Bedside Glucose 210 158 116 White Blood Count 9.9 Red Blood Count 2.86 L Hemoglobin 7.8 L Hematocrit 25.2 L Mean Corpuscular Volume 88.1 Mean Corpuscular 27.3 L Hemoglobin Mean Corpuscular 31.0 L Hemoglobin Concent Red Cell Distribution 15.6 H Width Platelet Count 271 Mean Platelet Volume 10.5 H Immature Granulocytes % 1.000 H Neutrophils % 55.0 Lymphocytes % 32.0 Monocytes % 8.6 Eosinophils % 3.1 Basophils % 0.3 Nucleated Red Blood 0.2 H Cells % Immature Granulocytes # 0.100 H Neutrophils # 5.4 Lymphocytes # 3.2 H Monocytes # 0.9 Eosinophils # 0.3 Basophils # 0.0 Nucleated Red Blood 0.0 Cells # Erythrocyte 65 H Sedimentation Rate Sodium Level 140 Potassium Level 4.3 Chloride Level 108 Carbon Dioxide Level 26 Anion Gap 6 Blood Urea Nitrogen 28 H Creatinine 1.25 H Est Glomerular Filtrat 43 L Rate mL/min Glucose Level 117 # Calcium Level 8.5 Phosphorus Level 3.1 Magnesium Level 1.8 Total Bilirubin 0.3 Direct Bilirubin 0.00 Indirect Bilirubin 0.3 Aspartate Amino 16 Transf (AST/SGOT) Alanine 16 Aminotransferase (ALT/SG PT) Alkaline Phosphatase 72 Total Protein 5.9 L Albumin 2.8 L Globulin 3.10 Albumin/Globulin Ratio 0.90 Test 04/26/19 10:40 04/26/19 12:43 04/26/19 17:46 Bedside Glucose 156 133 243 H Subjective 24 Hr Interval Summary Constitutional: no complaints, improved Respiratory: no complaints Cardiovascular: no complaints Gastrointestinal: no complaints Genitourinary: no complaints Musculoskeletal: bone/joint pain (R foot bvut contolled by pain meds) Neurologic: no complaints Exam/Review of Systems Exam Vitals VS - Last 72 Hours, by Label Date Temp Pulse Resp B/P (MAP) Pulse Ox O2 O2 Flow FiO2 Time Delivery Rate 04/26/19 98.6 65 18 148/74 97 14:30 (98) 04/26/19 98.6 20 173/76 93 07:36 (108) 04/25/19 99.1 70 20 147/65 96 Room Air 19:15 (92) 04/25/19 98.6 66 18 130/75 98 14:34 (93) 04/25/19 98.5 63 18 138/73 96 07:25 (94) 04/25/19 98.4 18 148/65 96 Room Air 02:00 (92) 04/24/19 98.6 63 20 158/71 99 Room Air 20:01 (100) 04/24/19 98.6 62 18 139/63 97 Room Air 14:08 (88) 04/24/19 98.0 71 18 164/72 98 Room Air 07:20 (102) 04/24/19 67 151/68 06:27 (95) 04/24/19 98.4 77 18 155/68 96 Room Air 01:31 (97) 04/23/19 98.8 86 18 143/65 96 Room Air 19:36 (91) Vital Signs Date Temp Pulse Resp B/P (MAP) Pulse Ox O2 O2 Flow FiO2 Time Delivery Rate 04/26/19 98.6 65 18 148/74 97 14:30 (98) 04/25/19 Room Air 19:15 04/23/19 3.0 03:00 Intake and Output 04/25/19 04/25/19 04/26/19 1515:00 23:00 07:00 IntakeIntake Total 350 ml 900 ml BalanceBalance 350 ml 900 ml Constitutional: alert, oriented, obese Respiratory: clear to auscultation, normal air movement Cardiovascular: regular rate and rhythm, nl pulses; No edema, No murmurs/extra sounds, No rub Gastrointestinal: soft, nl liver, spleen, non-tender, bowel sounds; No mass, No rebound or guarding Musculoskeletal: No nl extremities to inspection (RLE in ex-fix) Extremities: No cyanosis, No clubbing, No edema Neurological: MANUFACTURING SUPPORT ENGINEER II-XII intact, nl mental status, nl speech, nl strength Additional Comments Bedside Glucose - 72 Hours Test 04/23/19 19:25 04/23/19 21:46 04/24/19 01:47 04/24/19 08:34 Bedside 385 348 250 219 Glucose mg/dL (70-220) mg/dL (70-220) mg/dL (70-220) mg/dL (70-220) H H H Test 04/24/19 10:09 04/24/19 12:51 04/24/19 17:42 04/24/19 17:45 Bedside 265 311 186 178 Glucose mg/dL (70-220) mg/dL (70-220) mg/dL (70-220) mg/dL (70-220) H H Test 04/24/19 19:57 04/24/19 21:35 04/25/19 08:28 04/25/19 12:44 Bedside 189 143 91 120 Glucose mg/dL (70-220) mg/dL (70-220) mg/dL (70-220) mg/dL (70-220) Test 04/25/19 15:00 04/25/19 17:51 04/25/19 21:08 04/26/19 02:06 Bedside 205 224 210 158 Glucose mg/dL (70-220) mg/dL (70-220) mg/dL (70-220) mg/dL (70-220) H Test 04/26/19 08:03 04/26/19 10:40 04/26/19 12:43 04/26/19 17:46 Bedside 116 156 133 243 Glucose mg/dL (70-220) mg/dL (70-220) mg/dL (70-220) mg/dL (70-220) H Results Results 24hrs Laboratory Tests Test 04/25/19 21:08 04/26/19 02:06 04/26/19 04:41 04/26/19 08:03 Bedside Glucose 210 158 116 White Blood Count 9.9 Red Blood Count 2.86 L Hemoglobin 7.8 L Hematocrit 25.2 L Mean Corpuscular Volume 88.1 Mean Corpuscular 27.3 L Hemoglobin Mean Corpuscular 31.0 L Hemoglobin Concent Red Cell Distribution 15.6 H Width Platelet Count 271 Mean Platelet Volume 10.5 H Immature Granulocytes % 1.000 H Neutrophils % 55.0 Lymphocytes % 32.0 Monocytes % 8.6 Eosinophils % 3.1 Basophils % 0.3 Nucleated Red Blood 0.2 H Cells % Immature Granulocytes # 0.100 H Neutrophils # 5.4 Lymphocytes # 3.2 H Monocytes # 0.9 Eosinophils # 0.3 Basophils # 0.0 Nucleated Red Blood 0.0 Cells # Erythrocyte 65 H Sedimentation Rate Sodium Level 140 Potassium Level 4.3 Chloride Level 108 Carbon Dioxide Level 26 Anion Gap 6 Blood Urea Nitrogen 28 H Creatinine 1.25 H Est Glomerular Filtrat 43 L Rate mL/min Glucose Level 117 # Calcium Level 8.5 Phosphorus Level 3.1 Magnesium Level 1.8 Total Bilirubin 0.3 Direct Bilirubin 0.00 Indirect Bilirubin 0.3 Aspartate Amino 16 Transf (AST/SGOT) Alanine 16 Aminotransferase (ALT/SG PT) Alkaline Phosphatase 72 Total Protein 5.9 L Albumin 2.8 L Globulin 3.10 Albumin/Globulin Ratio 0.90 Test 04/26/19 10:40 04/26/19 12:43 04/26/19 17:46 Bedside Glucose 156 133 243 H Medications Medication Current Medications Ondansetron HCl (Zofran Inj) 4 mg Q6H PRN IV NAUSEA AND/OR VOMITING; Start 04/22/19 at 21:00 Acetaminophen (Tylenol Tab) 650 mg Q6H PRN PO MILD PAIN(1-3)OR ELEVATED TEMP; Start 04/22/19 at 21:00 Apixaban (Eliquis) 5 mg BID PO Last administered on 04/26/19 08:48; Admin Dose 5 MG; Start 04/22/19 at 21:00 Atorvastatin Calcium (Lipitor) 80 mg QHS PO Last administered on 04/25/19 21:06; Admin Dose 80 MG; Start 04/22/19 at 21:00 Chlorthalidone (Hygroton) 25 mg DAILY PO Last administered on 04/26/19 08:49; Admin Dose 25 MG; Start 04/23/19 at 09:00 Citalopram Hydrobromide (Celexa) 10 mg DAILY PO Last administered on 04/26/19 08:48; Admin Dose 10 MG; Start 04/23/19 at 09:00 Acetaminophen/ Hydrocodone Bitart ([place] (5/325)) 1 tab Q6 PRN PO PAIN LEVEL 4- 10 Last administered on 04/26/19 09:36; Admin Dose 1 TAB; Start 04/22/19 at 21:00 Levothyroxine Sodium (Synthroid) 100 mcg BEFORE BREAKFAST PO Last administered on 04/26/19 06:06; Admin Dose 100 MCG; Start 04/23/19 at 07:00 Liothyronine Sodium (Cytomel) 5 mcg BID PO Last administered on 04/26/19 08:47; Admin Dose 5 MCG; Start 04/22/19 at 21:00 Losartan Potassium (Cozaar) 50 mg BID PO Last administered on 04/26/19 08:48; Admin Dose 50 MG; Start 04/22/19 at 21:00 Metformin HCl (Glucophage) 500 mg WITH BREAKFAST DINNE PO Last administered on 04/26/19 08:51; Admin Dose 500 MG; Start 04/23/19 at 07:50 Diagnostic Test (Pha) (Accu-Chek) 1 ea 02 XX Last administered on 04/24/19 01:49; Admin Dose 1 EA; Start 04/23/19 at 02:00 Diagnostic Test (Pha) (Accu-Chek) 1 ea 2 HOURS AFTER MEALS XX Last administered on 04/26/19 10:41; Admin Dose 1 EA; Start 04/23/19 at 09:50 Insulin Aspart (Novolog Insulin Pen) NOVOLOG *MILD* ALGORITHM WITH MEALS BEDTIME SC Last administered on 04/25/19 21:12; Admin Dose 1 UNIT; Start 04/22/19 at 21:00 Famotidine (Pepcid) 20 mg Q12 PO Last administered on 04/26/19 08:49; Admin Dose 20 MG; Start 04/23/19 at 21:00 Ferric Sodium Gluconate Complex 125 mg/Sodium Chloride 110 ml @ 110 mls/hr DAILY@1300 IVPB Last administered on 04/26/19 13:29; Admin Dose 110 MLS/HR; Start 04/24/19 at 13:00; Stop 04/28/19 at 13:59 Metoprolol Tartrate (Lopressor) 50 mg BID PO Last administered on 04/26/19 08:49; Admin Dose 50 MG; Start 04/24/19 at 09:00 Insulin Aspart (Novolog Insulin Pen) 4 unit WITH BREAKFAST SC Last admi nistered on 04/26/19 08:44; Admin Dose 4 UNIT; Start 04/25/19 at 07:50 Insulin Aspart (Novolog Insulin Pen) 4 unit WITH LUNCH SC Last administered on 04/26/19 12:46; Admin Dose 4 UNIT; Start 04/24/19 at 11:40 Insulin Aspart (Novolog Insulin Pen) 4 unit WITH DINNER SC Last administered on 04/25/19 17:55; Admin Dose 4 UNIT; Start 04/24/19 at 17:55 Insulin Glargine (Lantus) 25 units DAILY@2000 SC Last administered on 04/25/19 21:13; Admin Dose 25 UNITS; Start 04/24/19 at 20:00 Miscellaneous Information 1 ea NOTE XX ; Start 04/25/19 at 13:30 Glucose (Glutose) 15 gm Q15M PRN PO DECREASED GLUCOSE; Start 04/25/19 at 13:30 Glucose (Glutose) 22.5 gm Q15M PRN PO DECREASED GLUCOSE; Start 04/25/19 at 13:30 Dextrose (D50w Syringe) 25 ml Q15M PRN IV DECREASED GLUCOSE; Start 04/25/19 at 13:30 Dextrose (D50w Syringe) 50 ml Q15M PRN IV DECREASED GLUCOSE; Start 04/25/19 at 13:30 Glucagon (Glucagen) 1 mg Q15M PRN IM DECREASED GLUCOSE; Start 04/25/19 at 13:30 Glucose (Glutose) 15 gm Q15M PRN BUCCAL DECREASED GLUCOSE; Start 04/25/19 at 13:30 Ceftriaxone Sodium 50 ml @ 100 mls/hr Q24H IVPB Last administered on 04/26/19at 15:32; Admin Dose 100 MLS/HR; Start 04/25/19 at 14:30 UMU ASENCIO MD Apr 26, 2019 18:05
[2019-04-26 19:10] VITALS: BP 147/65; PULSE 70; RESP 18
[2019-04-26] MEDS: ATORVASTATIN 80 MG TAB PO SCH (20:17)
[2019-04-26] MEDS: INSULIN GLARGINE [LANTus] (100 UNITS/ML) SYG SC SCH (20:32)
[2019-04-26] MEDS: AMLODIPINE 2.5 MG TAB PO SCH (20:33)
[2019-04-27] MEDS: ACCU-CHEK XX SCH ×4 (02:00→19:55)
[2019-04-27 02:05] VITALS: BP 154/66; PULSE 68; RESP 16
[2019-04-27 07:38] VITALS: BP 150/66; PULSE 62; RESP 18
[2019-04-27] MEDS: metFORMIN 500 MG TAB PO SCH ×2 (08:44→18:00)
[2019-04-27] MEDS: LEVOTHYROXINE 100 MCG TAB PO SCH (08:44)
[2019-04-27] MEDS: INSULIN ASPART [NOVOLOG] 3 ML PEN SC SCH ×5 (08:48→20:21)
[2019-04-27] MEDS: FAMOTIDINE 20 MG TAB PO SCH ×2 (09:44→20:10)
[2019-04-27] MEDS: CHLORTHALIDONE 25 MG TAB PO SCH (09:44)
[2019-04-27] MEDS: CITALOPRAM 20 MG TAB PO SCH (09:45)
[2019-04-27] MEDS: LIOTHYRONINE 5 MCG TAB PO SCH ×2 (09:45→20:17)
[2019-04-27] MEDS: LOSARTAN 50 MG TAB PO SCH ×2 (09:45→20:10)
[2019-04-27] MEDS: APIXABAN 5 MG TABLET PO SCH ×2 (09:45→20:10)
[2019-04-27] MEDS: METOPROLOL 50 MG TAB PO SCH ×2 (09:45→20:11)
[2019-04-27] MEDS: AMLODIPINE 2.5 MG TAB PO SCH ×2 (09:46→20:10)
--- NOTE | 2019-04-27 10:43 | PN ---
Date/Time of Note Date/Time of Note DATE: 04/27/19 TIME: 10:33 Assessment/Plan VTE Prophylaxis Risk score (from [facility] [place])>0 risk: 8 SCD applied (from [facility] [place]): Yes Pharmacological prophylaxis: apixaban Lines/Catheters IV Catheter Type (from [facility]): Peripheral IV Assessment/Plan Problems: (1) Status post debridement of ulcer of heel Status: Acute Comment: S/p flap and ex-fix. Cont. ceftriaxone. Undergoing PT. Plan transfer to ARU if accepted. (2) Right calcaneal fracture Status: Acute Comment: S/p flap and ex-fix. Cont. ceftriaxone. Undergoing PT. Plan transfer to ARU if accepted. (3) Acute osteomyelitis of right calcaneus Status: Acute Comment: Per ID cont. ceftriaxone until 05/19 (4) Non-pressure chronic ulcer of other part of right foot with necrosis of muscle Status: Chronic Comment: S/p flap and ex-fix. Cont. ceftriaxone. Undergoing PT. Plan maurer sfer to ARU if accepted. (5) Diabetes mellitus type 2 in obese Status: Chronic Comment: BG elevated last night. Increase Novolog w/ lunch and dinner to 6 units and reeval tomorrow. (6) Essential hypertension Status: Chronic Comment: BP remains elevated. Yesterday added amlodipine. Monitor on this and see if BP comes down to goal. Already on metoprolol, chlorthalidone, and losartan. (7) Hyperlipidemia associated with type 2 diabetes mellitus Status: Chronic Comment: Cont. statin (8) Recurrent deep vein thrombosis (DVT) Status: Chronic Comment: Cont. apixiban (9) Hypothyroidism Status: Chronic Comment: Cont. LT4 Qualifiers: Hypothyroidism type: acquired Qualified Codes: E03.9 - Hypothyroidism, unspecified (10) Anemia Status: Chronic Comment: Likely due to combination of blood loss and chronic disease from osteomyelitis. Cont. IV Fe. Qualifiers: Anemia type: iron deficiency Iron deficiency anemia type: unspecified iron deficiency Qualified Codes: D50.9 - Iron deficiency anemia, unspecified Result Diagram: 04/26/191 04/26/191 Results 24hrs Laboratory Tests Test 04/26/19 10:40 04/26/19 12:43 04/26/19 17:46 04/26/19 20:14 Bedside Glucose 156 133 243 H 199 Test 04/27/19 02:02 04/27/19 08:42 04/27/19 10:23 Bedside Glucose 203 163 262 H Subjective 24 Hr Interval Summary Constitutional: no complaints, improved (doing PT) Respiratory: no complaints Cardiovascular: no complaints Gastrointestinal: no complaints Genitourinary: no complaints Musculoskeletal: bone/joint pain (mild, controlled) Neurologic: no complaints Exam/Review of Systems Exam Vitals VS - Last 72 Hours, by Label Date Temp Pulse Resp B/P (MAP) Pulse Ox O2 O2 Flow FiO2 Time Delivery Rate 04/27/19 98.4 62 18 150/66 98 07:38 (94) 04/27/19 98.9 68 16 154/66 99 02:05 (95) 04/26/19 98.2 70 18 147/65 94 19:10 (92) 04/26/19 98.6 65 18 148/74 97 14:30 (98) 04/26/19 98.6 20 173/76 93 07:36 (108) 04/25/19 99.1 70 20 147/65 96 Room Air 19:15 (92) 04/25/19 98.6 66 18 130/75 98 14:34 (93) 04/25/19 98.5 63 18 138/73 96 07:25 (94) 04/25/19 98.4 18 148/65 96 Room Air 02:00 (92) 04/24/19 98.6 63 20 158/71 99 Room Air 20:01 (100) 04/24/19 98.6 62 18 139/63 97 Room Air 14:08 (88) Vital Signs Date Temp Pulse Resp B/P (MAP) Pulse Ox O2 O2 Flow FiO2 Time Delivery Rate 04/27/19 98.4 62 18 150/66 98 07:38 (94) 04/25/19 Room Air 19:15 Intake and Output 04/26/19 04/26/19 04/27/19 1515:00 23:00 07:00 IntakeIntake Total 960 ml 250 ml BalanceBalance 960 ml 250 ml Constitutional: alert, oriented, obese Psych: no complaints, nl mood/affect Respiratory: clear to auscultation, normal air movement Cardiovascular: regular rate and rhythm, nl pulses; No edema, No murmurs/extra sounds, No rub Gastrointestinal: soft, nl liver, spleen, non-tender, bowel sounds; No mass, No rebound or guarding Musculoskeletal: No nl extremities to inspection (RLE in ex-fix) Extremities: No cyanosis, No clubbing, No edema Neurological: COMMERCIAL INSURANCE UNDERWRITER II-XII intact, nl mental status, nl speech, nl strength Additional Comments Bedside Glucose - 72 Hours Test 04/24/19 12:51 04/24/19 17:42 04/24/19 17:45 04/24/19 19:57 Bedside 311 186 178 189 Glucose mg/dL (70-220) mg/dL (70-220) mg/dL (70-220) mg/dL (70-220) H Test 04/24/19 21:35 04/25/19 08:28 04/25/19 12:44 04/25/19 15:00 Bedside 143 91 120 205 Glucose mg/dL (70-220) mg/dL (70-220) mg/dL (70-220) mg/dL (70-220) Test 04/25/19 17:51 04/25/19 21:08 04/26/19 02:06 04/26/19 08:03 Bedside 224 210 158 116 Glucose mg/dL (70-220) mg/dL (70-220) mg/dL (70-220) mg/dL (70-220) H Test 04/26/19 10:40 04/26/19 12:43 04/26/19 17:46 04/26/19 20:14 Bedside 156 133 243 199 Glucose mg/dL (70-220) mg/dL (70-220) mg/dL (70-220) mg/dL (70-220) H Test 04/27/19 02:02 04/27/19 08:42 04/27/19 10:23 Bedside 203 163 262 Glucose mg/dL (70-220) mg/dL (70-220) mg/dL (70-220) H Results Results 24hrs Laboratory Tests Test 04/26/19 10:40 04/26/19 12:43 04/26/19 17:46 04/26/19 20:14 Bedside Glucose 156 133 243 H 199 Test 04/27/19 02:02 04/27/19 08:42 04/27/19 10:23 Bedside Glucose 203 163 262 H Medications Medication Current Medications Ondansetron HCl (Zofran Inj) 4 mg Q6H PRN IV NAUSEA AND/OR VOMITING; Start 04/22/19 at 21:00 Acetaminophen (Tylenol Tab) 650 mg Q6H PRN PO MILD PAIN(1-3)OR ELEVATED TEMP; Start 04/22/19 at 21:00 Apixaban (Eliquis) 5 mg BID PO Last administered on 04/27/19 09:45; Admin Dose 5 MG; Start 04/22/19 at 21:00 Atorvastatin Calcium (Lipitor) 80 mg QHS PO Last administered on 04/26/19 20:17; Admin Dose 80 MG; Start 04/22/19 at 21:00 Chlorthalidone (Hygroton) 25 mg DAILY PO Last administered on 04/27/19 09:44; Admin Dose 25 MG; Start 04/23/19 at 09:00 Citalopram Hydrobromide (Celexa) 10 mg DAILY PO Last administered on 04/27/19 09:45; Admin Dose 10 MG; Start 04/23/19 at 09:00 Acetaminophen/ Hydrocodone Bitart ([place] (5/325)) 1 tab Q6 PRN PO PAIN LEVEL 4- 10 Last administered on 04/26/19 09:36; Admin Dose 1 TAB; Start 04/22/19 at 21:00 Levothyroxine Sodium (Synthroid) 100 mcg BEFORE BREAKFAST PO Last administered on 04/27/19 08:44; Admin Dose 100 MCG; Start 04/23/19 at 07:00 Liothyronine Sodium (Cytomel) 5 mcg BID PO Last administered on 04/27/19 09:45; Admin Dose 5 MCG; Start 04/22/19 at 21:00 Losartan Potassium (Cozaar) 50 mg BID PO Last administered on 04/27/19 09:45; Admin Dose 50 MG; Start 04/22/19 at 21:00 Metformin HCl (Glucophage) 500 mg WITH BREAKFAST DINNE PO Last administered on 04/27/19 08:44; Admin Dose 500 MG; Start 04/23/19 at 07:50 Diagnostic Test (Pha) (Accu-Chek) 1 ea 02 XX Last administered on 04/24/19 01:49; Admin Dose 1 EA; Start 04/23/19 at 02:00 Diagnostic Test (Pha) (Accu-Chek) 1 ea 2 HOURS AFTER MEALS XX Last administered on 04/26/19 10:41; Admin Dose 1 EA; Start 04/23/19 at 09:50 Insulin Aspart (Novolog Insulin Pen) NOVOLOG *MILD* ALGORITHM WITH MEALS BEDTIME SC Last administered on 04/27/19 08:48; Admin Dose 1 UNIT; Start 04/22/19 at 21:00 Famotidine (Pepcid) 20 mg Q12 PO Last administered on 04/27/19 09:44; Admin Dose 20 MG; Start 04/23/19 at 21:00 Ferric Sodium Gluconate Complex 125 mg/Sodium Chloride 110 ml @ 110 mls/hr DAILY@1300 IVPB Last administered on 04/26/19 13:29; Admin Dose 110 MLS/HR; Start 04/24/19 at 13:00; Stop 04/28/19 at 13:59 Metoprolol Tartrate (Lopressor) 50 mg BID PO Last administered on 04/27/19 09:45; Admin Dose 50 MG; Start 04/24/19 at 09:00 Insulin Aspart (Novolog Insulin Pen) 4 unit WITH BREAKFAST SC Last administered on 04/27/19 08:49; Admin Dose 4 UNIT; Start 04/25/19 at 07:50 Insulin Glargine (Lantus) 25 units DAILY@2000 SC Last administered on 04/26/19 20:32; Admin Dose 25 UNITS; Start 04/24/19 at 20:00 Miscellaneous Information 1 ea NOTE XX ; Start 04/25/19 at 13:30 Glucose (Glutose) 15 gm Q15M PRN PO DECREASED GLUCOSE; Start 04/25/19 at 13:30 Glucose (Glutose) 22.5 gm Q15M PRN PO DECREASED GLUCOSE; Start 04/25/19 at 13:30 Dextrose (D50w Syringe) 25 ml Q15M PRN IV DECREASED GLUCOSE; Start 04/25/19 at 13:30 Dextrose (D50w Syringe) 50 ml Q15M PRN IV DECREASED GLUCOSE; Start 04/25/19 at 13:30 Glucagon (Glucagen) 1 mg Q15M PRN IM DECREASED GLUCOSE; Start 04/25/19 at 13:30 Glucose (Glutose) 15 gm Q15M PRN BUCCAL DECREASED GLUCOSE; Start 04/25/19 at 13:30 Ceftriaxone Sodium 50 ml @ 100 mls/hr Q24H IVPB Last administered on 04/26/19at 15:32; Admin Dose 100 MLS/HR; Start 04/25/19 at 14:30 Insulin Aspart (Novolog Insulin Pen) 6 unit WITH LUNCH SC ; Start 04/27/19 at 11:40 Insulin Aspart (Novolog Insulin Pen) 6 unit WITH DINNER SC ; Start 04/27/19 at 17:55 Amlodipine Besylate (Norvasc) 2.5 mg BID PO Last administered on 04/27/19at 09:46; Admin Dose 2.5 MG; Start 04/26/19 at 21:00 UMU ASENCIO MD Apr 27, 2019 10:43
[2019-04-27] MEDS ORDERED: INSULIN ASPART [NOVOLOG] 3 ML PEN SC SCH ×2 (11:40→17:55)
[2019-04-27] MEDS: SOD FERRIC GLUC COMPLX 125 MG in SOD CHLORIDE 0.9% 100 ML IVPB SCH (13:07)
--- NOTE | 2019-04-27 14:29 | CONS ---
Assessment/Plan Assessment/Plan Hospital Course (Demo Recall) ID NOTE TOTAL ABX DAY # 5.5 CURRENT ABX=>Ceftriaxone 2GM IV s/p CEFEPIME X1 04/25 S/P ANCEF 04/22 - 04/25 RECENT EVENTS * POD #5 -> S/P 04/22/19 : Complex RIGHT CHARCOT FOOT debridement, flap, bone fusion, external fixator 24H INTERVAL SUMMARY * CLINICALLY STATUS QUO -- pain issued continue -- appears to be coping well * Resting, no new issues, no c/o offered, VSS, no fevers * WBC normalized, ESR 65, renal fx stable MICRO: * 04/22/2019 right heel wound cx: ANAEROBIC CULTURE Preliminary No anaerobe isolated at 48 hours * TISSUE (BIOPSY) CULTURE Final Organism 1 ESCHERICHIA COLI QUANTITY SCANT GROWTH Organism 2 CORYNEBACTERIUM SPECIES QUANTITY SCANT GROWTH E COLI M.I.C. RX --------- --- AMPICILLIN >=32 R CEFAZOLIN I CEFOTAXIME S CIPROFLOXACIN >=4 R GENTAMICIN <=1 S LEVOFLOXACIN >=8 R TOBRAMYCIN <=1 S TRIMETHOPRIM/SULFAMETHOXAZOLE >=320 R TISSUE (BIOPSY) CULTURE Final (continued) CORYN SPS Zone Size RX --------- --- * AMPICILLIN S * AMPICILLIN/SULBACTAM S * CEFAZOLIN S * CEFOTAXIME S * CEFUROXIME S * CIPROFLOXACIN R * CLINDAMYCIN R * ERYTHROMYCIN R * PENICILLIN S * VANCOMYCIN S RADIOLOGY/IMAGING: * 04/22/2019 RIGHT ANKLE XR: Interval placement of external fixator device and pinning of the talus and calcaneus. * 04/22/2019 RIGHT FOOT XR: Interval postsurgical changes from pinning of the talus and calcaneus and placement of external fixator device. * 04/22/2019 RIGHT LEG XR: Interval postsurgical changes from pinning of the talus and calcaneus and placement of external fixator device. EXAM GENERAL: Afebrile, VSS, NAD HEENT: Unremarkable NECK: Supple, trachea midline. CHEST: Equal chest rise bilaterally, without dyspnea on observation HEART: Pulse RRR ABDOMEN: Soft EXTREMITIES: Warm, edema w/R-wound vac ID ASSESSMENT 67 yo F admit with: 1. Right foot Charcot 2. Right foot diabetic foot ulceration, failed outpatient treatment. * POD #5 -> S/P 04/22/19 Complex RIGHT CHARCOT FOOT debridement, flap, bone fusion, external fixator 3. History of right foot calcaneal osteomyelitis on 12/30/17 MRI: TREATED 4. Right foot mid foot instability. 5. Diabetes with peripheral neuropathy. 6. Obesity. 7. History of deep venous thrombosis. 8. Peripheral arterial disease, history of angioplasty, right anterior tibial. 9. Hypertension. 10. Chronic kidney disease (-)MRSA Nares INVASIVES: PICC ABX ALLERGY: KNDA CURRENT ABX: ABX DAY #Ceftriaxone 2GM IV s/p CEFEPIME X1 04/25 S/P ANCEF 04/22 - 04/25 ID RECOMMENDATIONS 1. The E.Coli is sensitive to CEFTRIAXONE and she is growing opportunistic Corynebacterium also sensitive to Ceftriaxone * Ceftriaxone is once daily dosing and tolerated well -- Rx Ceftriaxone 2gm IV daily per obesity * Ceftriaxone has improved empiric coverage for GP organisms over Cefepime 4. Anticipate DC on Ceftriaxone 2GM IV to complete 28 days from 04/22/19 5. F/U with [facility] . Consultation Date/Type/Reason Admit Date/Time Apr 22, 2019 at 13:14 Initial Consult Date Date/Time of Note DATE: 04/27/19 TIME: 14:28 Exam/Review of Systems Exam Vitals Vital Signs Date Temp Pulse Resp B/P (MAP) Pulse Ox O2 O2 Flow FiO2 Time Delivery Rate 04/27/19 98.4 62 18 150/66 98 07:38 (94) 04/25/19 Room Air 19:15 Intake and Output 04/26/19 04/26/19 04/27/19 1515:00 23:00 07:00 IntakeIntake Total 960 ml 250 ml BalanceBalance 960 ml 250 ml Results Result Diagram: 04/26/19 0441 04/26/19 0441 Results 24hrs Laboratory Tests Test 04/26/19 17:46 04/26/19 20:14 04/27/19 02:02 04/27/19 08:42 Bedside Glucose 243 H 199 203 163 Test 04/27/19 10:23 04/27/19 12:22 Bedside Glucose 262 H 244 H Medications Medication Current Medications Ondansetron HCl (Zofran Inj) 4 mg Q6H PRN IV NAUSEA AND/OR VOMITING; Start 04/22/19 at 21:00 Acetaminophen (Tylenol Tab) 650 mg Q6H PRN PO MILD PAIN(1-3)OR ELEVATED TEMP; Start 04/22/19 at 21:00 Apixaban (Eliquis) 5 mg BID PO Last administered on 04/27/19 09:45; Admin Dose 5 MG; Start 04/22/19 at 21:00 Atorvastatin Calcium (Lipitor) 80 mg QHS PO Last administered on 04/26/19 20:17; Admin Dose 80 MG; Start 04/22/19 at 21:00 Chlorthalidone (Hygroton) 25 mg DAILY PO Last administered on 04/27/19 09:44; Admin Dose 25 MG; Start 04/23/19 at 09:00 Citalopram Hydrobromide (Celexa) 10 mg DAILY PO Last administered on 04/27/19 09:45; Admin Dose 10 MG; Start 04/23/19 at 09:00 Acetaminophen/ Hydrocodone Bitart ([place] (5/325)) 1 tab Q6 PRN PO PAIN LEVEL 4- 10 Last administered on 04/26/19 09:36; Admin Dose 1 TAB; Start 04/22/19 at 21:00 Levothyroxine Sodium (Synthroid) 100 mcg BEFORE BREAKFAST PO Last administered on 04/27/19 08:44; Admin Dose 100 MCG; Start 04/23/19 at 07:00 Liothyronine Sodium (Cytomel) 5 mcg BID PO Last administered on 04/27/19 09:45; Admin Dose 5 MCG; Start 04/22/19 at 21:00 Losartan Potassium (Cozaar) 50 mg BID PO Last administered on 04/27/19 09:45; Admin Dose 50 MG; Start 04/22/19 at 21:00 Metformin HCl (Glucophage) 500 mg WITH BREAKFAST DINNE PO Last administered on 04/27/19 08:44; Admin Dose 500 MG; Start 04/23/19 at 07:50 Diagnostic Test (Pha) (Accu-Chek) 1 ea 02 XX Last administered on 04/24/19 01:49; Admin Dose 1 EA; Start 04/23/19 at 02:00 Diagnostic Test (Pha) (Accu-Chek) 1 ea 2 HOURS AFTER MEALS XX Last administered on 04/27/19 10:35; Admin Dose 1 EA; Start 04/23/19 at 09:50 Insulin Aspart (Novolog Insulin Pen) NOVOLOG *MILD* ALGORITHM WITH MEALS BEDTIME SC Last administered on 04/27/19at 12:33; Admin Dose 3 UNIT; Start 04/22/19 at 21:00 Famotidine (Pepcid) 20 mg Q12 PO Last administered on 04/27/19at 09:44; Admin Dose 20 MG; Start 04/23/19 at 21:00 Ferric Sodium Gluconate Complex 125 mg/Sodium Chloride 110 ml @ 110 mls/hr DAILY@1300 IVPB Last administered on 04/27/19 13:07; Admin Dose 110 MLS/HR; Start 04/24/19 at 13:00; Stop 04/28/19 at 13:59 Metoprolol Tartrate (Lopressor) 50 mg BID PO Last administered on 04/27/19 09:45; Admin Dose 50 MG; Start 04/24/19 at 09:00 Insulin Aspart (Novolog Insulin Pen) 4 unit WITH BREAKFAST SC Last administered on 04/27/19at 08:49; Admin Dose 4 UNIT; Start 04/25/19 at 07:50 Insulin Glargine (Lantus) 25 units DAILY@2000 SC Last administered on 04/26/19 20:32; Admin Dose 25 UNITS; Start 04/24/19 at 20:00 Miscellaneous Information 1 ea NOTE XX ; Start 04/25/19 at 13:30 Glucose (Glutose) 15 gm Q15M PRN PO DECREASED GLUCOSE; Start 04/25/19 at 13:30 Glucose (Glutose) 22.5 gm Q15M PRN PO DECREASED GLUCOSE; Start 04/25/19 at 13:30 Dextrose (D50w Syringe) 25 ml Q15M PRN IV DECREASED GLUCOSE; Start 04/25/19 at 13:30 Dextrose (D50w Syringe) 50 ml Q15M PRN IV DECREASED GLUCOSE; Start 04/25/19 at 13:30 Glucagon (Glucagen) 1 mg Q15M PRN IM DECREASED GLUCOSE; Start 04/25/19 at 13:30 Glucose (Glutose) 15 gm Q15M PRN BUCCAL DECREASED GLUCOSE; Start 04/25/19 at 13:30 Ceftriaxone Sodium 50 ml @ 100 mls/hr Q24H IVPB Last administered on 04/26/19at 15:32; Admin Dose 100 MLS/HR; Start 04/25/19 at 14:30 Insulin Aspart (Novolog Insulin Pen) 6 unit WITH LUNCH SC Last administered on 04/27/19at 12:34; Admin Dose 6 UNIT; Start 04/27/19 at 11:40 Insulin Aspart (Novolog Insulin Pen) 6 unit WITH DINNER SC ; Start 04/27/19 at 17:55 Amlodipine Besylate (Norvasc) 2.5 mg BID PO Last administered on 04/27/19at 09:46; Admin Dose 2.5 MG; Start 04/26/19 at 21:00 FITO JETER NP Apr 27, 2019 14:29
[2019-04-27] MEDS: CEFTRIAXONE 2 GM/50 ML (PMX) 50 ML IVPB SCH (14:33)
[2019-04-27 15:29] VITALS: BP 141/67; PULSE 64; RESP 18
[2019-04-27 19:20] VITALS: BP 171/77; PULSE 70; RESP 20
[2019-04-27] MEDS: ATORVASTATIN 80 MG TAB PO SCH (20:10)
[2019-04-27] MEDS: INSULIN GLARGINE [LANTus] (100 UNITS/ML) SYG SC SCH (20:14)
[2019-04-27] MEDS ORDERED: NA PHOSPHATE/BIPHOS 133 ML ENEMA PR PRN (23:00)
[2019-04-27] MEDS ORDERED: BISACODYL (EC) 5 MG TAB PO PRN (23:00)
[2019-04-27] MEDS ORDERED: POLYETHYLENE GLYCOL 17 GM PACKET PO PRN (23:00)
[2019-04-27] MEDS: METHYLNALTREXONE 12 MG/0.6 ML VIAL SC SCH (23:13)
[2019-04-28] MEDS: ACCU-CHEK XX SCH ×5 (02:00→22:13)
[2019-04-28 02:15] VITALS: BP 132/58; PULSE 65; RESP 20
[2019-04-28] MEDS: LEVOTHYROXINE 100 MCG TAB PO SCH (05:59)
[2019-04-28 07:21] VITALS: BP 136/67; PULSE 66; RESP 18
--- NOTE | 2019-04-28 08:40 | PN ---
Date/Time of Note Date/Time of Note DATE: 04/28/19 TIME: 08:33 Assessment/Plan VTE Prophylaxis Risk score (from Ns)>0 risk: 7 SCD applied (from Ns): Yes Pharmacological prophylaxis: apixaban Lines/Catheters IV Catheter Type (from Nrs): Peripheral IV Assessment/Plan Problems: (1) Acute osteomyelitis of right calcaneus Status: Acute Comment: On ceftriaxone until 05/19/19 per ID. Will continue (2) Status post debridement of ulcer of heel Status: Acute Comment: In ex-fix. On ceftriaxone. Awaiting ARU eval for possible transfer. (3) Non-pressure chronic ulcer of other part of right foot with necrosis of muscle Status: Chronic Comment: S/p free-flap. In ex-fix. On ceftriaxone. Awaiting transfer to ARU for ongoing care. (4) Right calcaneal fracture Status: Acute Comment: S/p reduction w/ external fixation. Awaiting transfer to ARU for ongoing care. (5) Drug-induced constipation Status: Acute Comment: Started methylnaltrexone last night and rec'd dulcolax last night. To receive miralax today. (6) Diabetes, polyneuropathy Status: Chronic Comment: BG continues to be elevated. Will increase Novolog to 8 units qac and add linagliptin 5 mg daily. Reeval tomorrow. Qualifiers: Diabetes mellitus type: type 2 Qualified Codes: E11.42 - Type 2 diabetes mellitus with diabetic polyneuropathy (7) Essential hypertension Status: Chronic Comment: BP elevated yesterday. Increase amlodipine to 5 mg bid and add h ydralazine 10 mg tid. (8) Hypothyroidism Status: Chronic Comment: Cont. LT4 Qualifiers: Hypothyroidism type: acquired Qualified Codes: E03.9 - Hypothyroidism, unspecified (9) Hyperlipidemia associated with type 2 diabetes mellitus Status: Chronic Comment: Cont. statin (10) Recurrent deep vein thrombosis (DVT) Status: Chronic Comment: Cont. apixiban (11) Anemia Status: Chronic Comment: Hgb improved. Cont. Fe and monitor. Qualifiers: Anemia type: iron deficiency Iron deficiency anemia type: unspecified iron deficiency Qualified Codes: D50.9 - Iron deficiency anemia, unspecified Result Diagram: 04/28/19 0438 04/28/19 0438 Results 24hrs Laboratory Tests Test 04/27/19 08:42 04/27/19 10:23 04/27/19 12:22 04/27/19 15:01 Bedside Glucose 163 262 H 244 H 217 Test 04/27/19 17:36 04/27/19 20:09 04/28/19 01:54 04/28/19 04:38 Bedside Glucose 229 H 187 220 White Blood Count 10.7 Red Blood Count 3.15 L Hemoglobin 8.7 L Hematocrit 28.0 L Mean Corpuscular Volume 88.9 Mean Corpuscular 27.6 L Hemoglobin Mean Corpuscular 31.1 L Hemoglobin Concent Red Cell Distribution 15.7 H Width Platelet Count 311 Mean Platelet Volume 10.3 Immature Granulocytes % 1.100 H Neutrophils % 59.8 Lymphocytes % 27.8 Monocytes % 8.2 Eosinophils % 2.9 Basophils % 0.2 Nucleated Red Blood 0.0 Cells % Immature Granulocytes # 0.120 H Neutrophils # 6.4 Lymphocytes # 3.0 H Monocytes # 0.9 Eosinophils # 0.3 Basophils # 0.0 Nucleated Red Blood 0.0 Cells # Sodium Level 137 Potassium Level 4.6 Chloride Level 104 Carbon Dioxide Level 27 Anion Gap 6 Blood Urea Nitrogen 32 H Creatinine 1.29 H Est Glomerular Filtrat 41 L Rate mL/min Glucose Level 204 Calcium Level 9.2 Subjective 24 Hr Interval Summary Constitutional: no complaints, improved Respiratory: no complaints Cardiovascular: no complaints Gastrointestinal: constipation Genitourinary: no complaints Musculoskeletal: no complaints Neurologic: no complaints Exam/Review of Systems Exam Vitals VS - Last 72 Hours, by Label Date Temp Pulse Resp B/P (MAP) Pulse Ox O2 O2 Flow FiO2 Time Delivery Rate 04/28/19 98.4 66 18 136/67 98 07:21 (90) 04/28/19 98.3 65 20 132/58 98 Room Air 02:15 (82) 04/27/19 98.1 70 20 171/77 99 Room Air 19:20 (108) 04/27/19 98.2 64 18 141/67 98 Room Air 15:29 (91) 04/27/19 98.4 62 18 150/66 98 07:38 (94) 04/27/19 98.9 68 16 154/66 99 02:05 (95) 04/26/19 98.2 70 18 147/65 94 19:10 (92) 04/26/19 98.6 65 18 148/74 97 14:30 (98) 04/26/19 98.6 20 173/76 93 07:36 (108) 04/25/19 99.1 70 20 147/65 96 Room Air 19:15 (92) 04/25/19 98.6 66 18 130/75 98 14:34 (93) Vital Signs Date Temp Pulse Resp B/P (MAP) Pulse Ox O2 O2 Flow FiO2 Time Delivery Rate 04/28/19 98.4 66 18 136/67 98 07:21 (90) 04/28/19 Room Air 02:15 Intake and Output 04/27/19 04/27/19 04/28/19 1515:00 23:00 07:00 IntakeIntake Total 450 ml 290 ml 250 ml BalanceBalance 450 ml 290 ml 250 ml Constitutional: alert, oriented, obese Psych: no complaints, nl mood/affect Respiratory: clear to auscultation, normal air movement Cardiovascular: regular rate and rhythm, nl pulses; No edema, No murmurs/extra sounds, No rub Gastrointestinal: soft, nl liver, spleen, non-tender, bowel sounds; No mass, No rebound or guarding Musculoskeletal: No nl extremities to inspection (R foot in ex-fix) Extremities: No cyanosis, No clubbing, No edema Neurological: [employer] II-XII intact, nl mental status, nl speech, nl strength Additional Comments Bedside Glucose - 72 Hours Test 04/25/19 12:44 04/25/19 15:00 04/25/19 17:51 04/25/19 21:08 Bedside 120 205 224 210 Glucose mg/dL (70-220) mg/dL (70-220) mg/dL (70-220) mg/dL (70-220) H Test 04/26/19 02:06 04/26/19 08:03 04/26/19 10:40 04/26/19 12:43 Bedside 158 116 156 133 Glucose mg/dL (70-220) mg/dL (70-220) mg/dL (70-220) mg/dL (70-220) Test 04/26/19 17:46 04/26/19 20:14 04/27/19 02:02 04/27/19 08:42 Bedside 243 199 203 163 Glucose mg/dL (70-220) mg/dL (70-220) mg/dL (70-220) mg/dL (70-220) H Test 04/27/19 10:23 04/27/19 12:22 04/27/19 15:01 04/27/19 17:36 Bedside 262 244 217 229 Glucose mg/dL (70-220) mg/dL (70-220) mg/dL (70-220) mg/dL (70-220) H H H Test 04/27/19 20:09 04/28/19 01:54 Bedside 187 220 Glucose mg/dL (70-220) mg/dL (70-220) Results Results 24hrs Laboratory Tests Test 04/27/19 08:42 04/27/19 10:23 04/27/19 12:22 04/27/19 15:01 Bedside Glucose 163 262 H 244 H 217 Test 04/27/19 17:36 04/27/19 20:09 04/28/19 01:54 04/28/19 04:38 Bedside Glucose 229 H 187 220 White Blood Count 10.7 Red Blood Count 3.15 L Hemoglobin 8.7 L Hematocrit 28.0 L Mean Corpuscular Volume 88.9 Mean Corpuscular 27.6 L Hemoglobin Mean Corpuscular 31.1 L Hemoglobin Concent Red Cell Distribution 15.7 H Width Platelet Count 311 Mean Platelet Volume 10.3 Immature Granulocytes % 1.100 H Neutrophils % 59.8 Lymphocytes % 27.8 Monocytes % 8.2 Eosinophils % 2.9 Basophils % 0.2 Nucleated Red Blood 0.0 Cells % Immature Granulocytes # 0.120 H Neutrophils # 6.4 Lymphocytes # 3.0 H Monocytes # 0.9 Eosinophils # 0.3 Basophils # 0.0 Nucleated Red Blood 0.0 Cells # Sodium Level 137 Potassium Level 4.6 Chloride Level 104 Carbon Dioxide Level 27 Anion Gap 6 Blood Urea Nitrogen 32 H Creatinine 1.29 H Est Glomerular Filtrat 41 L Rate mL/min Glucose Level 204 Calcium Level 9.2 Medications Medication Current Medications Ondansetron HCl (Zofran Inj) 4 mg Q6H PRN IV NAUSEA AND/OR VOMITING; Start 04/22/19 at 21:00 Acetaminophen (Tylenol Tab) 650 mg Q6H PRN PO MILD PAIN(1-3)OR ELEVATED TEMP; Start 04/22/19 at 21:00 Apixaban (Eliquis) 5 mg BID PO Last administered on 04/27/19 20:10; Admin Dose 5 MG; Start 04/22/19 at 21:00 Atorvastatin Calcium (Lipitor) 80 mg QHS PO Last administered on 04/27/19 20:10; Admin Dose 80 MG; Start 04/22/19 at 21:00 Chlorthalidone (Hygroton) 25 mg DAILY PO Last administered on 04/27/19 09:44; Admin Dose 25 MG; Start 04/23/19 at 09:00 Citalopram Hydrobromide (Celexa) 10 mg DAILY PO Last administered on 04/27/19 09:45; Admin Dose 10 MG; Start 04/23/19 at 09:00 Acetaminophen/ Hydrocodone Bitart ([place] (5/325)) 1 tab Q6 PRN PO PAIN LEVEL 4- 10 Last administered on 04/26/19 09:36; Admin Dose 1 TAB; Start 04/22/19 at 21:00 Levothyroxine Sodium (Synthroid) 100 mcg BEFORE BREAKFAST PO Last administered on 04/28/19 05:59; Admin Dose 100 MCG; Start 04/23/19 at 07:00 Liothyronine Sodium (Cytomel) 5 mcg BID PO Last administered on 04/27/19 20:17; Admin Dose 5 MCG; Start 04/22/19 at 21:00 Losartan Potassium (Cozaar) 50 mg BID PO Last administered on 04/27/19 20:10; Admin Dose 50 MG; Start 04/22/19 at 21:00 Metformin HCl (Glucophage) 500 mg WITH BREAKFAST DINNE PO Last administered on 04/27/19 18:00; Admin Dose 500 MG; Start 04/23/19 at 07:50 Diagnostic Test (Pha) (Accu-Chek) 1 ea 02 XX Last administered on 04/24/19 01:49; Admin Dose 1 EA; Start 04/23/19 at 02:00 Diagnostic Test (Pha) (Accu-Chek) 1 ea 2 HOURS AFTER MEALS XX Last adminis tered on 04/27/19 15:00; Admin Dose 1 EA; Start 04/23/19 at 09:50 Insulin Aspart (Novolog Insulin Pen) NOVOLOG *MILD* ALGORITHM WITH MEALS BEDTIME SC Last administered on 04/27/19 20:21; Admin Dose 1 UNIT; Start 04/22/19 at 21:00 Famotidine (Pepcid) 20 mg Q12 PO Last administered on 04/27/19at 20:10; Admin Dose 20 MG; Start 04/23/19 at 21:00 Ferric Sodium Gluconate Complex 125 mg/Sodium Chloride 110 ml @ 110 mls/hr DAILY@1300 IVPB Last administered on 04/27/19at 13:07; Admin Dose 110 MLS/HR; Start 04/24/19 at 13:00; Stop 04/28/19 at 13:59 Metoprolol Tartrate (Lopressor) 50 mg BID PO Last administered on 04/27/19at 20:11; Admin Dose 50 MG; Start 04/24/19 at 09:00 Insulin Glargine (Lantus) 25 units DAILY@2000 SC Last administered on 04/27/19at 20:14; Admin Dose 25 UNITS; Start 04/24/19 at 20:00 Miscellaneous Information 1 ea NOTE XX ; Start 04/25/19 at 13:30 Glucose (Glutose) 15 gm Q15M PRN PO DECREASED GLUCOSE; Start 04/25/19 at 13:30 Glucose (Glutose) 22.5 gm Q15M PRN PO DECREASED GLUCOSE; Start 04/25/19 at 13:30 Dextrose (D50w Syringe) 25 ml Q15M PRN IV DECREASED GLUCOSE; Start 04/25/19 at 1 3:30 Dextrose (D50w Syringe) 50 ml Q15M PRN IV DECREASED GLUCOSE; Start 04/25/19 at 13:30 Glucagon (Glucagen) 1 mg Q15M PRN IM DECREASED GLUCOSE; Start 04/25/19 at 13:30 Glucose (Glutose) 15 gm Q15M PRN BUCCAL DECREASED GLUCOSE; Start 04/25/19 at 13:30 Ceftriaxone Sodium 50 ml @ 100 mls/hr Q24H IVPB Last administered on 04/27/19at 14:33; Admin Dose 100 MLS/HR; Start 04/25/19 at 14:30 Amlodipine Besylate (Norvasc) 5 mg BID PO ; Start 04/28/19 at 09:00 Insulin Aspart (Novolog Insulin Pen) 8 unit WITH BREAKFAST SC ; Start 04/28/19 at 07:50 Insulin Aspart (Novolog Insulin Pen) 8 unit WITH LUNCH SC ; Start 04/28/19 at 11:40 Insulin Aspart (Novolog Insulin Pen) 8 unit WITH DINNER SC ; Start 04/28/19 at 17:55 Linagliptin (Tradjenta) 5 mg DAILY PO ; Start 04/28/19 at 09:00 Hydralazine HCl (Apresoline) 10 mg Q8 PO Last administered on 04/28/19at 05:58; Admin Dose 10 MG; Start 04/27/19 at 22:00 Methylnaltrexone [place] (Relistor) 12 mg Q48H SC Last administered on 04/27/19at 23:13; Admin Dose 12 MG; Start 04/27/19 at 23:00 Polyethylene Glycol (Miralax) 17 gm DAILY PRN PO CONSTIPATION; Start 04/27/19 at 23:00 Bisacodyl (Dulcolax) 10 mg DAILY PRN PO CONSTIPATION Last administered on 04/28/19at 02:00; Admin Dose 10 MG; Start 04/27/19 at 23:00 Sodium Biphosphate/ Sodium Phosphate (Fleet Enema) [address] CONSTIPATION; Start 04/27/19 at 23:00 UMU ASENCIO MD Apr 28, 2019 08:39
[2019-04-28] MEDS: LINAGLIPTIN 5 MG TABLET PO SCH (08:53)
[2019-04-28] MEDS: LIOTHYRONINE 5 MCG TAB PO SCH ×2 (08:53→20:23)
[2019-04-28] MEDS: CITALOPRAM 20 MG TAB PO SCH (08:56)
[2019-04-28] MEDS: APIXABAN 5 MG TABLET PO SCH ×2 (08:56→20:25)
[2019-04-28] MEDS: FAMOTIDINE 20 MG TAB PO SCH ×2 (08:56→20:25)
[2019-04-28] MEDS: CHLORTHALIDONE 25 MG TAB PO SCH (08:57)
[2019-04-28] MEDS: LOSARTAN 50 MG TAB PO SCH ×2 (08:59→20:25)
[2019-04-28] MEDS: METOPROLOL 50 MG TAB PO SCH ×2 (08:59→20:25)
[2019-04-28] MEDS: AMLODIPINE 2.5 MG TAB PO SCH ×2 (09:00→20:25)
[2019-04-28] MEDS: metFORMIN 500 MG TAB PO SCH ×2 (09:03→17:48)
[2019-04-28] MEDS: INSULIN ASPART [NOVOLOG] 3 ML PEN SC SCH ×7 (09:05→20:26)
--- NOTE | 2019-04-28 11:53 | CONS ---
Assessment/Plan Assessment/Plan Hospital Course (Demo Recall) ID NOTE TOTAL ABX DAY # 6.5 CURRENT ABX=>Ceftriaxone 2GM IV s/p CEFEPIME X1 04/25 S/P ANCEF 04/22 - 04/25 RECENT EVENTS * POD #6-> S/P 04/22/19 : Complex RIGHT CHARCOT FOOT debridement, flap, bone fusion, external fixator 24H INTERVAL SUMMARY * A/A/O -- working w/PT on ROM, non-ambulatory -- pain improved overall CLINICALLY STATUS QUO -- pain issued continue --VSS, no fevers * WBC normalized, ESR 65, renal fx stable MICRO: * 04/22/2019 right heel wound cx: ANAEROBIC CULTURE Preliminary No anaerobe isolated at 48 hours * TISSUE (BIOPSY) CULTURE Final Organism 1 ESCHERICHIA COLI QUANTITY SCANT GROWTH Organism 2 CORYNEBACTERIUM SPECIES QUANTITY SCANT GROWTH E COLI M.I.C. RX --------- --- AMPICILLIN >=32 R CEFAZOLIN I CEFOTAXIME S CIPROFLOXACIN >=4 R GENTAMICIN <=1 S LEVOFLOXACIN >=8 R TOBRAMYCIN <=1 S TRIMETHOPRIM/SULFAMETHOXAZOLE >=320 R TISSUE (BIOPSY) CULTURE Final (continued) CORYN SPS Zone Size RX --------- --- * AMPICILLIN S * AMPICILLIN/SULBACTAM S * CEFAZOLIN S * CEFOTAXIME S * CEFUROXIME S * CIPROFLOXACIN R * CLINDAMYCIN R * ERYTHROMYCIN R * PENICILLIN S * VANCOMYCIN S RADIOLOGY/IMAGING: * 04/22/2019 RIGHT ANKLE XR: Interval placement of external fixator device and pinning of the talus and calcaneus. * 04/22/2019 RIGHT FOOT XR: Interval postsurgical changes from pinning of the talus and calcaneus and placement of external fixator device. * 04/22/2019 RIGHT LEG XR: Interval postsurgical changes from pinning of the talus and calcaneus and placement of external fixator device. EXAM GENERAL: Afebrile, VSS, NAD HEENT: Unremarkable NECK: Supple, trachea midline. CHEST: Equal chest rise bilaterally, without dyspnea on observation HEART: Pulse RRR ABDOMEN: Soft EXTREMITIES: Warm, edema w/R-wound vac ID ASSESSMENT 67 yo F admit with: 1. Right foot Charcot 2. Right foot diabetic foot ulceration, failed outpatient treatment. * POD #6 -> S/P 04/22/19 Complex RIGHT CHARCOT FOOT debridement, flap, bone fusion, external fixator 3. History of right foot calcaneal osteomyelitis on 12/30/17 MRI: TREATED 4. Right foot mid foot instability. 5. Diabetes with peripheral neuropathy. 6. Obesity. 7. History of deep venous thrombosis. 8. Peripheral arterial disease, history of angioplasty, right anterior tibial. 9. Hypertension. 10. Chronic kidney disease (-)MRSA Nares INVASIVES: PICC ABX ALLERGY: KNDA CURRENT ABX: ABX DAY #Ceftriaxone 2GM IV s/p CEFEPIME X1 04/25 S/P ANCEF 04/22 - 04/25 ID RECOMMENDATIONS 1. The E.Coli is sensitive to CEFTRIAXONE and she is growing opportunistic Corynebacterium also sensitive to Ceftriaxone * Ceftriaxone is once daily dosing and tolerated well -- Rx Ceftriaxone 2gm IV daily per obesity * Ceftriaxone has improved empiric coverage for GP organisms over Cefepime 4. Anticipate DC on Ceftriaxone 2GM IV to complete 28 days from 04/22/19 5. F/U with [facility] . Consultation Date/Type/Reason Admit Date/Time Apr 22, 2019 at 13:14 Initial Consult Date Date/Time of Note DATE: 04/28/19 TIME: 11:50 Exam/Review of Systems Exam Vitals Vital Signs Date Temp Pulse Resp B/P (MAP) Pulse Ox O2 O2 Flow FiO2 Time Delivery Rate 04/28/19 98.4 66 18 136/67 98 07:21 (90) 04/28/19 Room Air 02:15 Intake and Output 04/27/19 04/27/19 04/28/19 1515:00 23:00 07:00 IntakeIntake Total 450 ml 290 ml 250 ml BalanceBalance 450 ml 290 ml 250 ml Results Result Diagram: 04/28/19 0438 04/28/19 0438 Results 24hrs Laboratory Tests Test 04/27/19 12:22 04/27/19 15:01 04/27/19 17:36 04/27/19 20:09 Bedside Glucose 244 H 217 229 H 187 Test 04/28/19 01:54 04/28/19 04:38 04/28/19 08:51 04/28/19 11:21 Bedside Glucose 220 180 212 White Blood Count 10.7 Red Blood Count 3.15 L Hemoglobin 8.7 L Hematocrit 28.0 L Mean Corpuscular Volume 88.9 Mean Corpuscular 27.6 L Hemoglobin Mean Corpuscular 31.1 L Hemoglobin Concent Red Cell Distribution 15.7 H Width Platelet Count 311 Mean Platelet Volume 10.3 Immature Granulocytes % 1.100 H Neutrophils % 59.8 Lymphocytes % 27.8 Monocytes % 8.2 Eosinophils % 2.9 Basophils % 0.2 Nucleated Red Blood 0.0 Cells % Immature Granulocytes # 0.120 H Neutrophils # 6.4 Lymphocytes # 3.0 H Monocytes # 0.9 Eosinophils # 0.3 Basophils # 0.0 Nucleated Red Blood 0.0 Cells # Sodium Level 137 Potassium Level 4.6 Chloride Level 104 Carbon Dioxide Level 27 Anion Gap 6 Blood Urea Nitrogen 32 H Creatinine 1.29 H Est Glomerular Filtrat 41 L Rate mL/min Glucose Level 204 Calcium Level 9.2 Medications Medication Current Medications Ondansetron HCl (Zofran Inj) 4 mg Q6H PRN IV NAUSEA AND/OR VOMITING; Start 04/22/19 at 21:00 Acetaminophen (Tylenol Tab) 650 mg Q6H PRN PO MILD PAIN(1-3)OR ELEVATED TEMP; Start 04/22/19 at 21:00 Apixaban (Eliquis) 5 mg BID PO Last administered on 04/28/19 08:56; Admin Dose 5 MG; Start 04/22/19 at 21:00 Atorvastatin Calcium (Lipitor) 80 mg QHS PO Last administered on 04/27/19 20:10; Admin Dose 80 MG; Start 04/22/19 at 21:00 Chlorthalidone (Hygroton) 25 mg DAILY PO Last administered on 04/28/19 08:57; Admin Dose 25 MG; Start 04/23/19 at 09:00 Citalopram Hydrobromide (Celexa) 10 mg DAILY PO Last administered on 04/28/19 08:56; Admin Dose 10 MG; Start 04/23/19 at 09:00 Acetaminophen/ Hydrocodone Bitart ([place] (5/325)) 1 tab Q6 PRN PO PAIN LEVEL 4- 10 Last administered on 04/26/19 09:36; Admin Dose 1 TAB; Start 04/22/19 at 21:00 Levothyroxine Sodium (Synthroid) 100 mcg BEFORE BREAKFAST PO Last administered on 04/28/19 05:59; Admin Dose 100 MCG; Start 04/23/19 at 07:00 Liothyronine Sodium (Cytomel) 5 mcg BID PO Last administered on 04/28/19 08:53; Admin Dose 5 MCG; Start 04/22/19 at 21:00 Losartan Potassium (Cozaar) 50 mg BID PO Last administered on 04/28/19 08:59; Admin Dose 50 MG; Start 04/22/19 at 21:00 Metformin HCl (Glucophage) 500 mg WITH BREAKFAST DINNE PO Last administered on 04/28/19 09:03; Admin Dose 500 MG; Start 04/23/19 at 07:50 Diagnostic Test (Pha) (Accu-Chek) 1 ea 02 XX Last administered on 04/24/19 01:49; Admin Dose 1 EA; Start 04/23/19 at 02:00 Diagnostic Test (Pha) (Accu-Chek) 1 ea 2 HOURS AFTER MEALS XX Last administered on 04/27/19 15:00; Admin Dose 1 EA; Start 04/23/19 at 09:50 Insulin Aspart (Novolog Insulin Pen) NOVOLOG *MILD* ALGORITHM WITH MEALS BEDTIME SC Last administered on 04/28/19 09:06; Admin Dose 1 UNIT; Start 04/22/19 at 21:00 Famotidine (Pepcid) 20 mg Q12 PO Last administered on 04/28/19 08:56; Admin Dose 20 MG; Start 04/23/19 at 21:00 Ferric Sodium Gluconate Complex 125 mg/Sodium Chloride 110 ml @ 110 mls/hr DAILY@1300 IVPB Last administered on 04/27/19 13:07; Admin Dose 110 MLS/HR; Start 04/24/19 at 13:00; Stop 04/28/19 at 13:59 Metoprolol Tartrate (Lopressor) 50 mg BID PO Last administered on 04/28/19 08:59; Admin Dose 50 MG; Start 04/24/19 at 09:00 Insulin Glargine (Lantus) 25 units DAILY@2000 SC Last administered on 04/27/19 20:14; Admin Dose 25 UNITS; Start 04/24/19 at 20:00 Miscellaneous Information 1 ea NOTE XX ; Start 04/25/19 at 13:30 Glucose (Glutose) 15 gm Q15M PRN PO DECREASED GLUCOSE; Start 04/25/19 at 13:30 Glucose (Glutose) 22.5 gm Q15M PRN PO DECREASED GLUCOSE; Start 04/25/19 at 13:30 Dextrose (D50w Syringe) 25 ml Q15M PRN IV DECREASED GLUCOSE; Start 04/25/19 at 13:30 Dextrose (D50w Syringe) 50 ml Q15M PRN IV DECREASED GLUCOSE; Start 04/25/19 at 13:30 Glucagon (Glucagen) 1 mg Q15M PRN IM DECREASED GLUCOSE; Start 04/25/19 at 13:30 Glucose (Glutose) 15 gm Q15M PRN BUCCAL DECREASED GLUCOSE; Start 04/25/19 at 13:30 Ceftriaxone Sodium 50 ml @ 100 mls/hr Q24H IVPB Last administered on 04/27/19at 14:33; Admin Dose 100 MLS/HR; Start 04/25/19 at 14:30 Amlodipine Besylate (Norvasc) 5 mg BID PO Last administered on 04/28/19at 09:00; Admin Dose 5 MG; Start 04/28/19 at 09:00 Insulin Aspart (Novolog Insulin Pen) 8 unit WITH BREAKFAST SC Last administered on 04/28/19at 09:05; Admin Dose 8 UNIT; Start 04/28/19 at 07:50 Insulin Aspart (Novolog Insulin Pen) 8 unit WITH LUNCH SC ; Start 04/28/19 at 11:40 Insulin Aspart (Novolog Insulin Pen) 8 unit WITH DINNER SC ; Start 04/28/19 at 17:55 Linagliptin (Tradjenta) 5 mg DAILY PO Last administered on 04/28/19at 08:53; Admin Dose 5 MG; Start 04/28/19 at 09:00 Hydralazine HCl (Apresoline) 10 mg Q8 PO Last administered on 04/28/19at 05:58; Admin Dose 10 MG; Start 04/27/19 at 22:00 Methylnaltrexone [place] (Relistor) 12 mg Q48H SC Last administered on 04/27/19at 23:13; Admin Dose 12 MG; Start 04/27/19 at 23:00 Polyethylene Glycol (Miralax) 17 gm DAILY PRN PO CONSTIPATION Last administered on 04/28/19at 08:58; Admin Dose 17 GM; Start 04/27/19 at 23:00 Bisacodyl (Dulcolax) 10 mg DAILY PRN PO CONSTIPATION Last administered on 04/28/19at 02:00; Admin Dose 10 MG; Start 04/27/19 at 23:00 Sodium Biphosphate/ Sodium Phosphate (Fleet Enema) 133 ml DAILY PRN [place] CONSTIPATION; Start 04/27/19 at 23:00 FITO JETER NP Apr 28, 2019 11:53
[2019-04-28] MEDS: SOD FERRIC GLUC COMPLX 125 MG in SOD CHLORIDE 0.9% 100 ML IVPB SCH (13:12)
[2019-04-28 13:51] VITALS: BP 87/50; PULSE 70; RESP 24
[2019-04-28 14:24] VITALS: BP 148/67; PULSE 67; RESP 18
[2019-04-28] MEDS: CEFTRIAXONE 2 GM/50 ML (PMX) 50 ML IVPB SCH (14:38)
[2019-04-28 19:33] VITALS: BP 146/67; PULSE 67; RESP 18
[2019-04-28] MEDS: ATORVASTATIN 80 MG TAB PO SCH (20:26)
[2019-04-28] MEDS: INSULIN GLARGINE [LANTus] (100 UNITS/ML) SYG SC SCH (20:28)
[2019-04-29] VITALS (7 sets, daily range): BP systolic 99–164; BP diastolic 49–75; PULSE 68–72; RESP 16–19
[2019-04-29] MEDS: LEVOTHYROXINE 100 MCG TAB PO SCH (06:37)
[2019-04-29] MEDS: APIXABAN 5 MG TABLET PO SCH ×2 (08:40→20:22)
[2019-04-29] MEDS: METOPROLOL 50 MG TAB PO SCH ×2 (08:40→20:21)
[2019-04-29] MEDS: CHLORTHALIDONE 25 MG TAB PO SCH (08:40)
[2019-04-29] MEDS: LOSARTAN 50 MG TAB PO SCH ×2 (08:41→20:20)
[2019-04-29] MEDS: FAMOTIDINE 20 MG TAB PO SCH ×2 (08:42→20:20)
[2019-04-29] MEDS: AMLODIPINE 2.5 MG TAB PO SCH ×2 (08:42→20:21)
[2019-04-29] MEDS: CITALOPRAM 20 MG TAB PO SCH (08:42)
[2019-04-29] MEDS: LINAGLIPTIN 5 MG TABLET PO SCH (08:46)
[2019-04-29] MEDS: metFORMIN 500 MG TAB PO SCH ×2 (08:47→17:47)
[2019-04-29] MEDS: INSULIN ASPART [NOVOLOG] 3 ML PEN SC SCH ×7 (08:50→20:19)
[2019-04-29] MEDS: LIOTHYRONINE 5 MCG TAB PO SCH ×2 (08:55→20:21)
[2019-04-29] MEDS ORDERED: LIDOCAINE 1% (MPF) 5 ML VIAL SC ONE (11:00)
[2019-04-29] MEDS: ACCU-CHEK XX SCH ×4 (11:30→20:19)
[2019-04-29] MEDS: HYDROCODONE/APAP (5/325) TAB PO PRN (11:53)
--- NOTE | 2019-04-29 13:46 | PN ---
Date/Time of Note Date/Time of Note DATE: 04/29/19 TIME: 13:36 Assessment/Plan VTE Prophylaxis Risk score (from Ns)>0 risk: 9 SCD applied (from Ns): Yes Pharmacological prophylaxis: apixaban Lines/Catheters IV Catheter Type (from Nrsg): Saline Lock Assessment/Plan Problems: (1) Chest pain Status: Acute Comment: EKG, troponin, CXR. Eval by pt.'s cardiology group before d/c home (2) Status post debridement of ulcer of heel Status: Acute Comment: in ex-fix. Cannot go to ARU. will care for her w/ HHN at home. (3) Acute osteomyelitis of right calcaneus Status: Acute Comment: Needs PICC for ceftriaxone until 05/19. (4) Non-pressure chronic ulcer of other part of right foot with necrosis of muscle Status: Chronic Comment: S/p free flap. In ex-fix. Cannot go to ARU. will care for her w/ HHN at home. (5) Right calcaneal fracture Status: Acute Comment: in ex-fix. Cannot go to ARU. will care for her w/ HHN at home. (6) Essential hypertension Status: Chronic Comment: BP control had improved until today when she had spike in BP associated w/ above chest pain. Will increase hydralazine and defer to cardiology (7) Hyperlipidemia associated with type 2 diabetes mellitus Status: Chronic Comment: Cont. statin (8) Hypothyroidism Status: Chronic Comment: Cont. LT4 Qualifiers: Hypothyroidism type: acquired Qualified Codes: E03.9 - Hypothyroidism, unspecified (9) Recurrent deep vein thrombosis (DVT) Status: Chronic Comment: Cont. apixiban (10) Anemia Status: Chronic Comment: Improved yesterday Qualifiers: Anemia type: iron deficiency Iron deficiency anemia type: unspecified iron deficiency Qualified Codes: D50.9 - Iron deficiency anemia, unspecified (11) Diabetes mellitus type 2 in obese Status: Chronic Comment: Good glycemic control. Cont. current insulin doses, metformin, and linagliptin (12) Drug-induced constipation Status: Acute Comment: Cont. methylnaltrexone and prns. Result Diagram: 04/28/19 0438 04/28/19 0438 Results 24hrs Laboratory Tests Test 04/28/19 14:21 04/28/19 16:34 04/28/19 17:43 04/28/19 20:23 Bedside Glucose 202 176 149 133 Test 04/29/19 08:45 04/29/19 11:17 04/29/19 11:59 04/29/19 13:02 Bedside Glucose 119 126 163 Troponin I < 0.012 Subjective 24 Hr Interval Summary Constitutional: no complaints Respiratory: shortness of breath (associated w/ chest pain) Cardiovascular: chest pain (pinching quality, now resolved) Gastrointestinal: no complaints Genitourinary: no complaints Musculoskeletal: no complaints Neurologic: no complaints Exam/Review of Systems Exam Vitals VS - Last 72 Hours, by Label Date Temp Pulse Resp B/P (MAP) Pulse Ox O2 O2 Flow FiO2 Time Delivery Rate 04/29/19 68 16 164/75 99 Room Air 11:56 (104) 04/29/19 97.2 72 19 132/62 98 07:23 (85) 04/29/19 98.8 68 18 146/63 98 Room Air 01:47 (90) 04/28/19 98.1 67 18 146/67 97 Room Air 19:33 (93) 04/28/19 98.4 67 18 148/67 100 14:24 (94) 04/28/19 98.4 66 18 136/67 98 07:21 (90) 04/28/19 98.3 65 20 132/58 98 Room Air 02:15 (82) 04/27/19 98.1 70 20 171/77 99 Room Air 19:20 (108) 04/27/19 98.2 64 18 141/67 98 Room Air 15:29 (91) 04/27/19 98.4 62 18 150/66 98 07:38 (94) 04/27/19 98.9 68 16 154/66 99 02:05 (95) 04/26/19 98.2 70 18 147/65 94 19:10 (92) 04/26/19 98.6 65 18 148/74 97 14:30 (98) Vital Signs Date Temp Pulse Resp B/P (MAP) Pulse Ox O2 O2 Flow FiO2 Time Delivery Rate 04/29/19 68 16 164/75 99 Room Air 11:56 (104) 04/29/19 97.2 07:23 Intake and Output 04/28/19 04/28/19 04/29/19 1515:00 23:00 07:00 IntakeIntake Total 160 ml 800 ml OutputOutput Total 1 ml BalanceBalance 159 ml 800 ml Constitutional: alert, oriented, obese Respiratory: clear to auscultation, normal air movement Cardiovascular: regular rate and rhythm; No edema, No murmurs/extra sounds, No rub Gastrointestinal: soft, nl liver, spleen, non-tender, bowel sounds; No mass, No rebound or guarding Musculoskeletal: No nl extremities to inspection (R foot in ex-fix) Extremities: No cyanosis, No clubbing, No edema Neurological: [employer] II-XII intact, nl mental status, nl speech, nl strength Additional Comments Bedside Glucose - 72 Hours Test 04/26/19 17:46 04/26/19 20:14 04/27/19 02:02 04/27/19 08:42 Bedside 243 199 203 163 Glucose mg/dL (70-220) mg/dL (70-220) mg/dL (70-220) mg/dL (70-220) H Test 04/27/19 10:23 04/27/19 12:22 04/27/19 15:01 04/27/19 17:36 Bedside 262 244 217 229 Glucose mg/dL (70-220) mg/dL (70-220) mg/dL (70-220) mg/dL (70-220) H H H Test 04/27/19 20:09 04/28/19 01:54 04/28/19 08:51 04/28/19 11:21 Bedside 187 220 180 212 Glucose mg/dL (70-220) mg/dL (70-220) mg/dL (70-220) mg/dL (70-220) Test 04/28/19 12:52 04/28/19 14:21 04/28/19 16:34 04/28/19 17:43 Bedside 224 202 176 149 Glucose mg/dL (70-220) mg/dL (70-220) mg/dL (70-220) mg/dL (70-220) H Test 04/28/19 20:23 04/29/19 08:45 04/29/19 11:17 04/29/19 13:02 Bedside 133 119 126 163 Glucose mg/dL (70-220) mg/dL (70-220) mg/dL (70-220) mg/dL (70-220) Results Results 24hrs Laboratory Tests Test 04/28/19 14:21 04/28/19 16:34 04/28/19 17:43 04/28/19 20:23 Bedside Glucose 202 176 149 133 Test 04/29/19 08:45 04/29/19 11:17 04/29/19 11:59 04/29/19 13:02 Bedside Glucose 119 126 163 Troponin I < 0.012 Medications Medication Current Medications Ondansetron HCl (Zofran Inj) 4 mg Q6H PRN IV NAUSEA AND/OR VOMITING; Start 04/22/19 at 21:00 Acetaminophen (Tylenol Tab) 650 mg Q6H PRN PO MILD PAIN(1-3)OR ELEVATED TEMP; Start 04/22/19 at 21:00 Apixaban (Eliquis) 5 mg BID PO Last administered on 04/29/19 08:40; Admin Dose 5 MG; Start 04/22/19 at 21:00 Atorvastatin Calcium (Lipitor) 80 mg QHS PO Last administered on 04/28/19 20:26; Admin Dose 80 MG; Start 04/22/19 at 21:00 Chlorthalidone (Hygroton) 25 mg DAILY PO Last administered on 04/29/19 08:40; Admin Dose 25 MG; Start 04/23/19 at 09:00 Citalopram Hydrobromide (Celexa) 10 mg DAILY PO Last administered on 04/29/19 08:42; Admin Dose 10 MG; Start 04/23/19 at 09:00 Acetaminophen/ Hydrocodone Bitart ([place] (5/325)) 1 tab Q6 PRN PO PAIN LEVEL 4- 10 Last administered on 04/29/19 11:53; Admin Dose 1 TAB; Start 04/22/19 at 21:00 Levothyroxine Sodium (Synthroid) 100 mcg BEFORE BREAKFAST PO Last administered on 04/29/19 06:37; Admin Dose 100 MCG; Start 04/23/19 at 07:00 Liothyronine Sodium (Cytomel) 5 mcg BID PO Last administered on 04/29/19 08:55; Admin Dose 5 MCG; Start 04/22/19 at 21:00 Losartan Potassium (Cozaar) 50 mg BID PO Last administered on 04/29/19 08:41; Admin Dose 50 MG; Start 04/22/19 at 21:00 Metformin HCl (Glucophage) 500 mg WITH BREAKFAST DINNE PO Last administered on 04/29/19 08:47; Admin Dose 500 MG; Start 04/23/19 at 07:50 Diagnostic Test (Pha) (Accu-Chek) 1 ea 02 XX Last administered on 04/24/19 01:49; Admin Dose 1 EA; Start 04/23/19 at 02:00 Diagnostic Test (Pha) (Accu-Chek) 1 ea 2 HOURS AFTER MEALS XX Last administered on 04/29/19 11:30; Admin Dose 1 EA; Start 04/23/19 at 09:50 Insulin Aspart (Novolog Insulin Pen) NOVOLOG *MILD* ALGORITHM WITH MEALS BEDTIME SC Last administered on 04/29/19 13:06; Admin Dose 1 UNIT; Start 04/22/19 at 21:00 Famotidine (Pepcid) 20 mg Q12 PO Last administered on 04/29/19 08:42; Admin Dose 20 MG; Start 04/23/19 at 21:00 Metoprolol Tartrate (Lopressor) 50 mg BID PO Last administered on 04/29/19 08:40; Admin Dose 50 MG; Start 04/24/19 at 09:00 Insulin Glargine (Lantus) 25 units DAILY@2000 SC Last administered on 04/28/19 20:28; Admin Dose 25 UNITS; Start 04/24/19 at 20:00 Miscellaneous Information 1 ea NOTE XX ; Start 04/25/19 at 13:30 Glucose (Glutose) 15 gm Q15M PRN PO DECREASED GLUCOSE; Start 04/25/19 at 13:30 Glucose (Glutose) 22.5 gm Q15M PRN PO DECREASED GLUCOSE; Start 04/25/19 at 13:30 Dextrose (D50w Syringe) 25 ml Q15M PRN IV DECREASED GLUCOSE; Start 04/25/19 at 13:30 Dextrose (D50w Syringe) 50 ml Q15M PRN IV DECREASED GLUCOSE; Start 04/25/19 at 13:30 Glucagon (Glucagen) 1 mg Q15M PRN IM DECREASED GLUCOSE; Start 04/25/19 at 13:30 Glucose (Glutose) 15 gm Q15M PRN BUCCAL DECREASED GLUCOSE; Start 04/25/19 at 13:30 Ceftriaxone Sodium 50 ml @ 100 mls/hr Q24H IVPB Last administered on 04/28/19 14:38; Admin Dose 100 MLS/HR; Start 04/25/19 at 14:30 Amlodipine Besylate (Norvasc) 5 mg BID PO Last administered on 04/29/19 08:42; Admin Dose 5 MG; Start 04/28/19 at 09:00 Insulin Aspart (Novolog Insulin Pen) 8 unit WITH BREAKFAST SC Last administered on 04/29/19 08:50; Admin Dose 8 UNIT; Start 04/28/19 at 07:50 Insulin Aspart (Novolog Insulin Pen) 8 unit WITH LUNCH SC Last administered on 04/29/19 13:04; Admin Dose 8 UNIT; Start 04/28/19 at 11:40 Insulin Aspart (Novolog Insulin Pen) 8 unit WITH DINNER SC Last administered on 04/28/19 17:46; Admin Dose 8 UNIT; Start 04/28/19 at 17:55 Linagliptin (Tradjenta) 5 mg DAILY PO Last administered on 04/29/19 08:46; Admin Dose 5 MG; Start 04/28/19 at 09:00 Hydralazine HCl (Apresoline) 10 mg Q8 PO Last administered on 04/29/19 13:01; Admin Dose 10 MG; Start 04/27/19 at 22:00 Methylnaltrexone [place] (Relistor) 12 mg Q48H SC Last administered on 04/27/19 23:13; Admin Dose 12 MG; Start 04/27/19 at 23:00 Polyethylene Glycol (Miralax) 17 gm DAILY PRN PO CONSTIPATION Last administered on 04/28/19 08:58; Admin Dose 17 GM; Start 04/27/19 at 23:00 Bisacodyl (Dulcolax) 10 mg DAILY PRN PO CONSTIPATION Last administered on 04/28/19 02:00; Admin Dose 10 MG; Start 04/27/19 at 23:00 Sodium Biphosphate/ Sodium Phosphate (Fleet Enema) 133 ml DAILY PRN [place] CONSTIPATION Last administered on 04/28/19 16:57; Admin Dose 133 ML; Start 04/27/19 at 23:00 UMU ASENCIO MD Apr 29, 2019 13:46
[2019-04-29] MEDS: CEFTRIAXONE 2 GM/50 ML (PMX) 50 ML IVPB SCH (14:11)
--- NOTE | 2019-04-29 14:33 | CONS ---
Assessment/Plan Assessment/Plan Hospital Course (Demo Recall) ID NOTE TOTAL ABX DAY # 7.5 CURRENT ABX=>Ceftriaxone 2GM IV s/p CEFEPIME X1 04/25 S/P ANCEF 04/22 - 04/25 RECENT EVENTS * POD #7-> S/P 04/22/19 : Complex RIGHT CHARCOT FOOT debridement, flap, bone fusion, external fixator 24H INTERVAL SUMMARY * CLINICALLY STATUS QUO -- stable --VSS, no fevers * WBC normalized, ESR 65, renal fx stable MICRO: * 04/22/2019 right heel wound cx: ANAEROBIC CULTURE Preliminary No anaerobe isolated at 48 hours * TISSUE (BIOPSY) CULTURE Final Organism 1 ESCHERICHIA COLI QUANTITY SCANT GROWTH Organism 2 CORYNEBACTERIUM SPECIES QUANTITY SCANT GROWTH E COLI M.I.C. RX --------- --- AMPICILLIN >=32 R CEFAZOLIN I CEFOTAXIME S CIPROFLOXACIN >=4 R GENTAMICIN <=1 S LEVOFLOXACIN >=8 R TOBRAMYCIN <=1 S TRIMETHOPRIM/SULFAMETHOXAZOLE >=320 R TISSUE (BIOPSY) CULTURE Final (continued) CORYN SPS Zone Size RX --------- --- * AMPICILLIN S * AMPICILLIN/SULBACTAM S * CEFAZOLIN S * CEFOTAXIME S * CEFUROXIME S * CIPROFLOXACIN R * CLINDAMYCIN R * ERYTHROMYCIN R * PENICILLIN S * VANCOMYCIN S RADIOLOGY/IMAGING: * 04/22/2019 RIGHT ANKLE XR: Interval placement of external fixator device and pinning of the talus and calcaneus. * 04/22/2019 RIGHT FOOT XR: Interval postsurgical changes from pinning of the talus and calcaneus and placement of external fixator device. * 04/22/2019 RIGHT LEG XR: Interval postsurgical changes from pinning of the talus and calcaneus and placement of external fixator device. EXAM GENERAL: Afebrile, VSS, NAD HEENT: Unremarkable NECK: Supple, trachea midline. CHEST: Equal chest rise bilaterally, without dyspnea on observation HEART: Pulse RRR ABDOMEN: Soft EXTREMITIES: Warm, edema w/R-wound vac ID ASSESSMENT 67 yo F admit with: 1. Right foot Charcot 2. Right foot diabetic foot ulceration, failed outpatient treatment. * POD #6 -> S/P 04/22/19 Complex RIGHT CHARCOT FOOT debridement, flap, bone fusion, external fixator 3. History of right foot calcaneal osteomyelitis on 12/30/17 MRI: TREATED 4. Right foot mid foot instability. 5. Diabetes with peripheral neuropathy. 6. Obesity. 7. History of deep venous thrombosis. 8. Peripheral arterial disease, history of angioplasty, right anterior tibial. 9. Hypertension. 10. Chronic kidney disease (-)MRSA Nares INVASIVES: PICC ABX ALLERGY: KNDA CURRENT ABX: ABX DAY #Ceftriaxone 2GM IV s/p CEFEPIME X1 04/25 S/P ANCEF 04/22 - 04/25 ID RECOMMENDATIONS 1. The E.Coli is sensitive to CEFTRIAXONE and she is growing opportunistic Corynebacterium also sensitive to Ceftriaxone * Ceftriaxone is once daily dosing and tolerated well -- Rx Ceftriaxone 2gm IV daily per obesity * Ceftriaxone has improved empiric coverage for GP organisms over Cefepime 4. Anticipate DC on Ceftriaxone 2GM IV to complete 28 days from 04/22/19 5. F/U with [facility] . Consultation Date/Type/Reason Admit Date/Time Apr 22, 2019 at 13:14 Initial Consult Date Date/Time of Note DATE: 04/29/19 TIME: 14:32 Exam/Review of Systems Exam Vitals Vital Signs Date Temp Pulse Resp B/P (MAP) Pulse Ox O2 O2 Flow FiO2 Time Delivery Rate 04/29/19 68 16 164/75 99 Room Air 11:56 (104) 04/29/19 97.2 07:23 Intake and Output 04/28/19 04/28/19 04/29/19 1515:00 23:00 07:00 IntakeIntake Total 160 ml 800 ml OutputOutput Total 1 ml BalanceBalance 159 ml 800 ml Results Result Diagram: 04/28/19 0438 04/28/19 0438 Results 24hrs Laboratory Tests Test 04/28/19 16:34 04/28/19 17:43 04/28/19 20:23 04/29/19 08:45 Bedside Glucose 176 149 133 119 Test 04/29/19 11:17 04/29/19 11:59 04/29/19 13:02 Bedside Glucose 126 163 Troponin I < 0.012 Medications Medication Current Medications Ondansetron HCl (Zofran Inj) 4 mg Q6H PRN IV NAUSEA AND/OR VOMITING; Start 04/22/19 at 21:00 Acetaminophen (Tylenol Tab) 650 mg Q6H PRN PO MILD PAIN(1-3)OR ELEVATED TEMP; Start 04/22/19 at 21:00 Apixaban (Eliquis) 5 mg BID PO Last administered on 04/29/19 08:40; Admin Dose 5 MG; Start 04/22/19 at 21:00 Atorvastatin Calcium (Lipitor) 80 mg QHS PO Last administered on 04/28/19 20:26; Admin Dose 80 MG; Start 04/22/19 at 21:00 Chlorthalidone (Hygroton) 25 mg DAILY PO Last administered on 04/29/19 08:40; Admin Dose 25 MG; Start 04/23/19 at 09:00 Citalopram Hydrobromide (Celexa) 10 mg DAILY PO Last administered on 04/29/19 08:42; Admin Dose 10 MG; Start 04/23/19 at 09:00 Acetaminophen/ Hydrocodone Bitart ([place] (5/325)) 1 tab Q6 PRN PO PAIN LEVEL 4- 10 Last administered on 04/29/19 11:53; Admin Dose 1 TAB; Start 04/22/19 at 21:00 Levothyroxine Sodium (Synthroid) 100 mcg BEFORE BREAKFAST PO Last administered on 04/29/19 06:37; Admin Dose 100 MCG; Start 04/23/19 at 07:00 Liothyronine Sodium (Cytomel) 5 mcg BID PO Last administered on 04/29/19 08:55; Admin Dose 5 MCG; Start 04/22/19 at 21:00 Losartan Potassium (Cozaar) 50 mg BID PO Last administered on 04/29/19 08:41; Admin Dose 50 MG; Start 04/22/19 at 21:00 Metformin HCl (Glucophage) 500 mg WITH BREAKFAST DINNE PO Last administered on 04/29/19 08:47; Admin Dose 500 MG; Start 04/23/19 at 07:50 Diagnostic Test (Pha) (Accu-Chek) 1 ea 02 XX Last administered on 04/24/19 01:49; Admin Dose 1 EA; Start 04/23/19 at 02:00 Diagnostic Test (Pha) (Accu-Chek) 1 ea 2 HOURS AFTER MEALS XX Last administered on 04/29/19 11:30; Admin Dose 1 EA; Start 04/23/19 at 09:50 Insulin Aspart (Novolog Insulin Pen) NOVOLOG *MILD* ALGORITHM WITH MEALS BEDTIME SC Last administered on 04/29/19 13:06; Admin Dose 1 UNIT; Start 04/22/19 at 21:00 Famotidine (Pepcid) 20 mg Q12 PO Last administered on 04/29/19 08:42; Admin Dose 20 MG; Start 04/23/19 at 21:00 Metoprolol Tartrate (Lopressor) 50 mg BID PO Last administered on 04/29/19 08:40; Admin Dose 50 MG; Start 04/24/19 at 09:00 Insulin Glargine (Lantus) 25 units DAILY@2000 SC Last administered on 04/28/19 20:28; Admin Dose 25 UNITS; Start 04/24/19 at 20:00 Miscellaneous Information 1 ea NOTE XX ; Start 04/25/19 at 13:30 Glucose (Glutose) 15 gm Q15M PRN PO DECREASED GLUCOSE; Start 04/25/19 at 13:30 Glucose (Glutose) 22.5 gm Q15M PRN PO DECREASED GLUCOSE; Start 04/25/19 at 13:30 Dextrose (D50w Syringe) 25 ml Q15M PRN IV DECREASED GLUCOSE; Start 04/25/19 at 13:30 Dextrose (D50w Syringe) 50 ml Q15M PRN IV DECREASED GLUCOSE; Start 04/25/19 at 13:30 Glucagon (Glucagen) 1 mg Q15M PRN IM DECREASED GLUCOSE; Start 04/25/19 at 13:30 Glucose (Glutose) 15 gm Q15M PRN BUCCAL DECREASED GLUCOSE; Start 04/25/19 at 13:30 Ceftriaxone Sodium 50 ml @ 100 mls/hr Q24H IVPB Last administered on 04/29/19 14:11; Admin Dose 100 MLS/HR; Start 04/25/19 at 14:30 Amlodipine Besylate (Norvasc) 5 mg BID PO Last administered on 04/29/19 08:42; Admin Dose 5 MG; Start 04/28/19 at 09:00 Insulin Aspart (Novolog Insulin Pen) 8 unit WITH BREAKFAST SC Last administered on 04/29/19at 08:50; Admin Dose 8 UNIT; Start 04/28/19 at 07:50 Insulin Aspart (Novolog Insulin Pen) 8 unit WITH LUNCH SC Last administered on 04/29/19 13:04; Admin Dose 8 UNIT; Start 04/28/19 at 11:40 Insulin Aspart (Novolog Insulin Pen) 8 unit WITH DINNER SC Last administered on 04/28/19 17:46; Admin Dose 8 UNIT; Start 04/28/19 at 17:55 Linagliptin (Tradjenta) 5 mg DAILY PO Last administered on 04/29/19 08:46; Admin Dose 5 MG; Start 04/28/19 at 09:00 Hydralazine HCl (Apresoline) 10 mg Q8 PO Last administered on 04/29/19 13:01; Admin Dose 10 MG; Start 04/27/19 at 22:00 Methylnaltrexone [place] (Relistor) 12 mg Q48H SC Last administered on 04/27/19 23:13; Admin Dose 12 MG; Start 04/27/19 at 23:00 Polyethylene Glycol (Miralax) 17 gm DAILY PRN PO CONSTIPATION Last administered on 04/28/19 08:58; Admin Dose 17 GM; Start 04/27/19 at 23:00 Bisacodyl (Dulcolax) 10 mg DAILY PRN PO CONSTIPATION Last administered on 04/28/19 02:00; Admin Dose 10 MG; Start 04/27/19 at 23:00 Sodium Biphosphate/ Sodium Phosphate (Fleet Enema) 133 ml DAILY PRN [place] CONSTIPATION Last administered on 04/28/19 16:57; Admin Dose 133 ML; Start 04/27/19 at 23:00 FITO JETER NP Apr 29, 2019 14:33
--- NOTE | 2019-04-29 17:20 | CONS ---
Assessment/Plan Assessment/Plan Assessment/Plan (Daily) Impression and Recs: # Chest pain- mostly atypical given sharp CP and without objective findings of ischemia with normal troponin and No dynamic ST changes on ECG. Pt is without syx now. She is however at risk for ischemic heart disease wiht her RF # s/p debridement # PAD # DM # HTN #HL # hypothyroid # obesity >> rule out DC >> Consider one time lasix given CXR finding >> continue on Eliquis >> If troponin negative can be discharged home later today or in am. >> please notify me if any changes >> will follow up as outpt >> if recurrent CP consider stress testing as outpt Consultation Date/Type/Reason Admit Date/Time Apr 22, 2019 at 13:14 Date of Consultation: Apr 29, 2019 Type of Consult Cardiology Requesting Provider: UMU ASENCIO MD Date/Time of Note DATE: 04/29/19 TIME: 17:18 Hx of Present Illness This is a pleasant 68 yo woman with numerous medical issues who presents to [facility] for outpt surgery for debridement of a heel ulcer. Pt has a background hx/o DM, PAD, HTN, HL , obesity. Prior to her discharge she c/o CP that was sharp in nature as well as some SOB. She has not syx at the moment. Her troponin was normal. ECG without ischemic changes. She has had a nuclear stress test in 2017 that was normal. She does have a hx/o DVT in the past as well and is maintained on Eliquis. Constitutional: no complaints Eyes: no complaints ENT: no complaints Respiratory: shortness of breath Cardiovascular: chest pain Gastrointestinal: no complaints Genitourinary: no complaints Musculoskeletal: bone/joint pain Skin: skin lesions Neurologic: no complaints Endocrine: no complaints Psychological: no complaints, nl mood/affect Immunologic: no complaints Past Medical History Medical History: deep vein thrombosis, diabetes, high cholesterol, hypertension, hypothyroid Home Meds Active Scripts Ondansetron (Ondansetron Odt) 8 Mg Tab.rapdis, 8 MG PO Q6H PRN for NAUSEA AND/OR VOMITING, #6 TAB Prov:SHAD DUNLAP MD 06/20/18 Reported Medications Liothyronine Sodium* (Cytomel*) 5 Mcg Tablet, 5 MCG PO BID, TAB 04/22/19 Chlorthalidone* (Chlorthalidone*) 25 Mg Tablet, 25 MG PO DAILY, TAB 04/22/19 Metformin Hcl* (Metformin Hcl*) 500 Mg Tablet, 500 MG PO WITH BREAKFAST DINNE, #60 TAB 04/22/19 Metformin Hcl* (Metformin Hcl*) 500 Mg Tablet, 500 MG PO WITH BREAKFAST DINNE, #60 TAB 04/22/19 Citalopram Hydrobromide* (Citalopram Hydrobromide*) 10 Mg Tablet, 10 MG PO DAILY, #30 TAB 04/22/19 Apixaban* (Eliquis*) 5 Mg Tablet, 5 MG PO BID, TAB 04/22/19 Insulin Aspart* (Novolog Insulin Pen*) 100 Unit/Ml Soln, 0 SC .SLIDING SCALE AC, EA 05/03/18 Metoprolol Tartrate* (Lopressor*) 25 Mg Tablet, 25 MG PO BID, #60 TAB 05/03/18 Hydrocodone/Acetaminophen (Climax 5-325 Tablet) 1 Each Tablet, 1 EACH PO Q6 PRN for PAIN LEVEL 4-10, TAB 05/03/18 Acetaminophen* (Acetaminophen*) 650 Mg Tablet, 650 MG PO Q6H PRN for PAIN AND OR ELEVATED TEMP, #30 TAB 05/03/18 Atorvastatin* (Atorvastatin*) 80 Mg Tablet, 80 MG PO QHS, #30 TAB 05/03/18 Insulin Glargine* (Lantus*) 100 Unit/Ml Soln, 35 UNIT SC QHS, #1 VIAL 05/03/18 Levothyroxine Sodium* (Levoxyl*) 100 Mcg Tablet, 100 MCG PO BEFORE BREAKFAST, #30 TAB 05/03/18 Losartan Potassium* (Losartan Potassium*) 50 Mg Tablet, 50 MG PO BID, TAB 05/03/18 Discontinued Reported Medications Meropenem (MEROPENEM) 1 Gm Vial, 1 GM IV Q12 PRN for WOUND INFECTION, VIAL UNTIL 05-09-18 05/03/18 Metformin Hcl* (Metformin Hcl*) 500 Mg Tablet, 500 MG PO WITH BREAKFAST, #30 TAB 05/03/18 Multivitamin* (Daily Value*) 1 Each Tablet, 1 TAB PO DAILY, TAB 05/03/18 Calcium Carbonate/Vitamin D3 (Oyster Shell+D 250 mg Tablet) 1 Each Tablet, 1 EACH PO BID, TAB 05/03/18 Protein Supplement (Promod) 946 Ml Liquid, 30 ML PO DAILY 05/03/18 Vancomycin/0.9 % Sod Chloride (Vanco 500 mg/100 ml-0.9% NaCl) 500 Mg/100 Ml Froz.piggy, 650 MG IV STARTED 04-11-18 STOP 05-09-18 05/03/18 Ascorbic Acid (Vitamin C) 500 Mg Tab, 500 MG PO BID, TAB 05/03/18 Apixaban* (Eliquis*) 2.5 Mg Tablet, 2.5 MG PO BID, TAB 05/03/18 Bisacodyl* (Bisacodyl*) 5 Mg Tablet.dr, 5 MG PO DAILY, TAB 05/03/18 Citalopram Hydrobromide* (Celexa*) 20 Mg Tablet, 20 MG PO DAILY, #30 TAB 05/03/18 Hydrochlorothiazide* (Hydrochlorothiazide*) 12.5 Mg Tablet, 12.5 MG PO DAILY, #30 TAB 05/03/18 Docusate Sodium* (Docusate Sodium*) 100 Mg Capsule, 100 MG PO BID, #60 CAP 05/03/18 Lactobacillus Acidophilus* (Lactinex*) 1 Tab Chew, 1 TAB PO TID, TAB 05/03/18 Medications Current Medications Ondansetron HCl (Zofran Inj) 4 mg Q6H PRN IV NAUSEA AND/OR VOMITING; Start 04/22/19 at 21:00 Acetaminophen (Tylenol Tab) 650 mg Q6H PRN PO MILD PAIN(1-3)OR ELEVATED TEMP; Start 04/22/19 at 21:00 Apixaban (Eliquis) 5 mg BID PO Last administered on 04/29/19 08:40; Admin Dose 5 MG; Start 04/22/19 at 21:00 Atorvastatin Calcium (Lipitor) 80 mg QHS PO Last administered on 04/28/19 20:26; Admin Dose 80 MG; Start 04/22/19 at 21:00 Chlorthalidone (Hygroton) 25 mg DAILY PO Last administered on 04/29/19 08:40; Admin Dose 25 MG; Start 04/23/19 at 09:00 Citalopram Hydrobromide (Celexa) 10 mg DAILY PO Last administered on 04/29/19 08:42; Admin Dose 10 MG; Start 04/23/19 at 09:00 Acetaminophen/ Hydrocodone Bitart ([place] (5/325)) 1 tab Q6 PRN PO PAIN LEVEL 4- 10 Last administered on 04/29/19 11:53; Admin Dose 1 TAB; Start 04/22/19 at 21:00 Levothyroxine Sodium (Synthroid) 100 mcg BEFORE BREAKFAST PO Last administered on 04/29/19 06:37; Admin Dose 100 MCG; Start 04/23/19 at 07:00 Liothyronine Sodium (Cytomel) 5 mcg BID PO Last administered on 04/29/19 08:55; Admin Dose 5 MCG; Start 04/22/19 at 21:00 Losartan Potassium (Cozaar) 50 mg BID PO Last administered on 04/29/19 08:41; Admin Dose 50 MG; Start 04/22/19 at 21:00 Metformin HCl (Glucophage) 500 mg WITH BREAKFAST DINNE PO Last administered on 04/29/19 08:47; Admin Dose 500 MG; Start 04/23/19 at 07:50 Diagnostic Test (Pha) (Accu-Chek) 1 ea 02 XX Last administered on 04/24/19 01:49; Admin Dose 1 EA; Start 04/23/19 at 02:00 Diagnostic Test (Pha) (Accu-Chek) 1 ea 2 HOURS AFTER MEALS XX Last administered on 04/29/19 15:35; Admin Dose 1 EA; Start 04/23/19 at 09:50 Insulin Aspart (Novolog Insulin Pen) NOVOLOG *MILD* ALGORITHM WITH MEALS BEDTIME SC Last administered on 04/29/19 13:06; Admin Dose 1 UNIT; Start 04/22/19 at 21:00 Famotidine (Pepcid) 20 mg Q12 PO Last administered on 04/29/19 08:42; Admin Dose 20 MG; Start 04/23/19 at 21:00 Metoprolol Tartrate (Lopressor) 50 mg BID PO Last administered on 04/29/19 08:40; Admin Dose 50 MG; Start 04/24/19 at 09:00 Insulin Glargine (Lantus) 25 units DAILY@2000 SC Last administered on 04/28/19 20:28; Admin Dose 25 UNITS; Start 04/24/19 at 20:00 Miscellaneous Information 1 ea NOTE XX ; Start 04/25/19 at 13:30 Glucose (Glutose) 15 gm Q15M PRN PO DECREASED GLUCOSE; Start 04/25/19 at 13:30 Glucose (Glutose) 22.5 gm Q15M PRN PO DECREASED GLUCOSE; Start 04/25/19 at 13:30 Dextrose (D50w Syringe) 25 ml Q15M PRN IV DECREASED GLUCOSE; Start 04/25/19 at 13:30 Dextrose (D50w Syringe) 50 ml Q15M PRN IV DECREASED GLUCOSE; Start 04/25/19 at 13:30 Glucagon (Glucagen) 1 mg Q15M PRN IM DECREASED GLUCOSE; Start 04/25/19 at 13:30 Glucose (Glutose) 15 gm Q15M PRN BUCCAL DECREASED GLUCOSE; Start 04/25/19 at 13:30 Ceftriaxone Sodium 50 ml @ 100 mls/hr Q24H IVPB Last administered on 04/29/19 14:11; Admin Dose 100 MLS/HR; Start 04/25/19 at 14:30 Amlodipine Besylate (Norvasc) 5 mg BID PO Last administered on 04/29/19 08:42; Admin Dose 5 MG; Start 04/28/19 at 09:00 Insulin Aspart (Novolog Insulin Pen) 8 unit WITH BREAKFAST SC Last administere d on 04/29/19 08:50; Admin Dose 8 UNIT; Start 04/28/19 at 07:50 Insulin Aspart (Novolog Insulin Pen) 8 unit WITH LUNCH SC Last administered on 04/29/19 13:04; Admin Dose 8 UNIT; Start 04/28/19 at 11:40 Insulin Aspart (Novolog Insulin Pen) 8 unit WITH DINNER SC Last administered on 04/28/19 17:46; Admin Dose 8 UNIT; Start 04/28/19 at 17:55 Linagliptin (Tradjenta) 5 mg DAILY PO Last administered on 04/29/19 08:46; Admin Dose 5 MG; Start 04/28/19 at 09:00 Hydralazine HCl (Apresoline) 10 mg Q8 PO Last administered on 04/29/19 13:01; Admin Dose 10 MG; Start 04/27/19 at 22:00 Methylnaltrexone [place] (Relistor) 12 mg Q48H SC Last administered on 04/27/19 23:13; Admin Dose 12 MG; Start 04/27/19 at 23:00 Polyethylene Glycol (Miralax) 17 gm DAILY PRN PO CONSTIPATION Last administered on 04/28/19at 08:58; Admin Dose 17 GM; Start 04/27/19 at 23:00 Bisacodyl (Dulcolax) 10 mg DAILY PRN PO CONSTIPATION Last administered on 04/28/19at 02:00; Admin Dose 10 MG; Start 04/27/19 at 23:00 Sodium Biphosphate/ Sodium Phosphate (Fleet Enema) 133 ml DAILY PRN [place] CONSTIPATION Last administered on 04/28/19 16:57; Admin Dose 133 ML; Start 04/27/19 at 23:00 Allergies: Coded Allergies: iodine (Verified Allergy, Unknown, rash, 05/03/18) Past Surgical History Past Surgical Hx: other Social History Alcohol Use: none Smoking Status: Never smoker Drug Use: none Exam/Review of Systems Vital Signs Vitals Vital Signs Date Temp Pulse Resp B/P (MAP) Pulse Ox O2 O2 Flow FiO2 Time Delivery Rate 04/29/19 16 136/66 14:50 (89) 04/29/19 98.2 72 98 Room Air 14:47 Intake and Output 04/28/19 04/28/19 04/29/19 1515:00 23:00 07:00 IntakeIntake Total 160 ml 800 ml OutputOutput Total 1 ml BalanceBalance 159 ml 800 ml Exam Constitutional: alert, oriented, well developed Psych: no complaints, nl mood/affect Head: normocephalic, atraumatic Eyes: nl conjunctiva, EOMI, nl lids ENMT: nl external ears & nose, nl lips & teeth, mucosa pink and moist Neck: supple; No jvd Respiratory: clear to auscultation Cardiovascular: regular rate and rhythm; No edema, No systolic murmur, No S3 Gastrointestinal: soft, nl liver, spleen, non-tender Musculoskeletal: nl extremities to inspection (R leg in dressing c/d/i) Extremities: No clubbing Neurological: INSPECTOR PACKER II-XII intact Labs Result Diagram: 04/28/198 04/28/19 0438 Results 24hrs Laboratory Tests Test 04/28/19 17:43 04/28/19 20:23 04/29/19 08:45 04/29/19 11:17 Bedside Glucose 149 133 119 126 Test 04/29/19 11:59 04/29/19 13:02 04/29/19 15:35 Troponin I < 0.012 Bedside Glucose 163 191 Medications Medications Current Medications Ondansetron HCl (Zofran Inj) 4 mg Q6H PRN IV NAUSEA AND/OR VOMITING; Start 04/22/19 at 21:00 Acetaminophen (Tylenol Tab) 650 mg Q6H PRN PO MILD PAIN(1-3)OR ELEVATED TEMP; Start 04/22/19 at 21:00 Apixaban (Eliquis) 5 mg BID PO Last administered on 04/29/19 08:40; Admin Dose 5 MG; Start 04/22/19 at 21:00 Atorvastatin Calcium (Lipitor) 80 mg QHS PO Last administered on 04/28/19 20:26; Admin Dose 80 MG; Start 04/22/19 at 21:00 Chlorthalidone (Hygroton) 25 mg DAILY PO Last administered on 04/29/19 08:40; Admin Dose 25 MG; Start 04/23/19 at 09:00 Citalopram Hydrobromide (Celexa) 10 mg DAILY PO Last administered on 04/29/19 08:42; Admin Dose 10 MG; Start 04/23/19 at 09:00 Acetaminophen/ Hydrocodone Bitart (Climax (5/325)) 1 tab Q6 PRN PO PAIN LEVEL 4- 10 Last administered on 04/29/19 11:53; Admin Dose 1 TAB; Start 04/22/19 at 21:00 Levothyroxine Sodium (Synthroid) 100 mcg BEFORE BREAKFAST PO Last administered on 04/29/19 06:37; Admin Dose 100 MCG; Start 04/23/19 at 07:00 Liothyronine Sodium (Cytomel) 5 mcg BID PO Last administered on 04/29/19 08:55; Admin Dose 5 MCG; Start 04/22/19 at 21:00 Losartan Potassium (Cozaar) 50 mg BID PO Last administered on 04/29/19 08:41; Admin Dose 50 MG; Start 04/22/19 at 21:00 Metformin HCl (Glucophage) 500 mg WITH BREAKFAST DINNE PO Last administered on 04/29/19 08:47; Admin Dose 500 MG; Start 04/23/19 at 07:50 Diagnostic Test (Pha) (Accu-Chek) 1 ea 02 XX Last administered on 04/24/19 01:49; Admin Dose 1 EA; Start 04/23/19 at 02:00 Diagnostic Test (Pha) (Accu-Chek) 1 ea 2 HOURS AFTER MEALS XX Last administered on 04/29/19 15:35; Admin Dose 1 EA; Start 04/23/19 at 09:50 Insulin Aspart (Novolog Insulin Pen) NOVOLOG *MILD* ALGORITHM WITH MEALS BEDTIME SC Last administered on 04/29/19 13:06; Admin Dose 1 UNIT; Start 04/22/19 at 21:00 Famotidine (Pepcid) 20 mg Q12 PO Last administered on 04/29/19 08:42; Admin Dose 20 MG; Start 04/23/19 at 21:00 Metoprolol Tartrate (Lopressor) 50 mg BID PO Last administered on 04/29/19 08:40; Admin Dose 50 MG; Start 04/24/19 at 09:00 Insulin Glargine (Lantus) 25 units DAILY@2000 SC Last administered on 04/28/19 20:28; Admin Dose 25 UNITS; Start 04/24/19 at 20:00 Miscellaneous Information 1 ea NOTE XX ; Start 04/25/19 at 13:30 Glucose (Glutose) 15 gm Q15M PRN PO DECREASED GLUCOSE; Start 04/25/19 at 13:30 Glucose (Glutose) 22.5 gm Q15M PRN PO DECREASED GLUCOSE; Start 04/25/19 at 13:30 Dextrose (D50w Syringe) 25 ml Q15M PRN IV DECREASED GLUCOSE; Start 04/25/19 at 13:30 Dextrose (D50w Syringe) 50 ml Q15M PRN IV DECREASED GLUCOSE; Start 04/25/19 at 13:30 Glucagon (Glucagen) 1 mg Q15M PRN IM DECREASED GLUCOSE; Start 04/25/19 at 13:30 Glucose (Glutose) 15 gm Q15M PRN BUCCAL DECREASED GLUCOSE; Start 04/25/19 at 13:30 Ceftriaxone Sodium 50 ml @ 100 mls/hr Q24H IVPB Last administered on 04/29/19 14:11; Admin Dose 100 MLS/HR; Start 04/25/19 at 14:30 Amlodipine Besylate (Norvasc) 5 mg BID PO Last administered on 04/29/19 08:42; Admin Dose 5 MG; Start 04/28/19 at 09:00 Insulin Aspart (Novolog Insulin Pen) 8 unit WITH BREAKFAST SC Last administered on 04/29/19 08:50; Admin Dose 8 UNIT; Start 04/28/19 at 07:50 Insulin Aspart (Novolog Insulin Pen) 8 unit WITH LUNCH SC Last administered on 04/29/19 13:04; Admin Dose 8 UNIT; Start 04/28/19 at 11:40 Insulin Aspart (Novolog Insulin Pen) 8 unit WITH DINNER SC Last administered on 04/28/19 17:46; Admin Dose 8 UNIT; Start 04/28/19 at 17:55 Linagliptin (Tradjenta) 5 mg DAILY PO Last administered on 04/29/19 08:46; Admin Dose 5 MG; Start 04/28/19 at 09:00 Hydralazine HCl (Apresoline) 10 mg Q8 PO Last administered on 04/29/19 13:01; Admin Dose 10 MG; Start 04/27/19 at 22:00 Methylnaltrexone [place] (Relistor) 12 mg Q48H SC Last administered on 04/27/19 23:13; Admin Dose 12 MG; Start 04/27/19 at 23:00 Polyethylene Glycol (Miralax) 17 gm DAILY PRN PO CONSTIPATION Last administered on 04/28/19 08:58; Admin Dose 17 GM; Start 04/27/19 at 23:00 Bisacodyl (Dulcolax) 10 mg DAILY PRN PO CONSTIPATION Last administered on 04/28/19 02:00; Admin Dose 10 MG; Start 04/27/19 at 23:00 Sodium Biphosphate/ Sodium Phosphate (Fleet Enema) 133 ml DAILY PRN [place] CONSTIPATION Last administered on 04/28/19 16:57; Admin Dose 133 ML; Start 04/27/19 at 23:00 JAIEM ORTIZ MD Apr 29, 2019 17:20
[2019-04-29] MEDS ORDERED: FUROSEMIDE 20 MG TAB PO ONE (17:30)
[2019-04-29] MEDS: ATORVASTATIN 80 MG TAB PO SCH (20:21)
[2019-04-29] MEDS: INSULIN GLARGINE [LANTus] (100 UNITS/ML) SYG SC SCH (20:24)
[2019-04-29] MEDS: METHYLNALTREXONE 12 MG/0.6 ML VIAL SC SCH (23:00)
[2019-04-30 02:58] VITALS: BP 124/58; RESP 18
[2019-04-30] MEDS: LEVOTHYROXINE 100 MCG TAB PO SCH (06:28)
[2019-04-30 06:33] VITALS: BP 132/58; PULSE 69
[2019-04-30] MEDS: INSULIN ASPART [NOVOLOG] 3 ML PEN SC SCH ×6 (07:50→17:45)
[2019-04-30] MEDS: LINAGLIPTIN 5 MG TABLET PO SCH (08:41)
[2019-04-30] MEDS: APIXABAN 5 MG TABLET PO SCH (08:41)
[2019-04-30] MEDS: LIOTHYRONINE 5 MCG TAB PO SCH (08:42)
[2019-04-30] MEDS: metFORMIN 500 MG TAB PO SCH ×2 (08:42→17:45)
[2019-04-30] MEDS: METOPROLOL 50 MG TAB PO SCH (08:42)
[2019-04-30] MEDS: LOSARTAN 50 MG TAB PO SCH (08:42)
[2019-04-30] MEDS: CITALOPRAM 20 MG TAB PO SCH (08:42)
[2019-04-30] MEDS: CHLORTHALIDONE 25 MG TAB PO SCH (08:43)
[2019-04-30] MEDS: AMLODIPINE 2.5 MG TAB PO SCH (08:43)
[2019-04-30] MEDS: FAMOTIDINE 20 MG TAB PO SCH (08:43)
[2019-04-30] MEDS: ACCU-CHEK XX SCH ×2 (09:52→13:40)
--- NOTE | 2019-04-30 13:47 | CONS ---
Assessment/Plan Assessment/Plan Hospital Course (Demo Recall) Alert feels good denies pain no fevers overnight Antimicrobials: Rocephin Microbiology: Right heel wound culture grew E. coli Physical examination: This is a morbidly obese well-developed elderly woman who is alert in no distress. Head atraumatic normocephalic neck is supple chest rise symmetrical breath sounds clear diminished bases heart: S1-S2. Abdomen soft bowel sounds present. Extremities with right lower extremity Isaac wrap patient has external hardware Assessment: 1. Right foot Charcot 2. Right diabetic foot ulceration/calcaneal osteomyelitis 3. Morbid obesity 4. Diabetes 5. Peripheral arterial disease history of angioplasty Plan: Vision remains stable status post surgical debridement on April 22, continue on current antibiotics complete 28 days, follow podiatry recommendations Consultation Date/Type/Reason Admit Date/Time Apr 22, 2019 at 13:14 Initial Consult Date 04/29/19 Type of Consult id Requesting Provider: [facility] ASENCIO MD Date/Time of Note DATE: 04/30/19 TIME: 13:46 Exam/Review of Systems Exam Vitals Vital Signs Date Temp Pulse Resp B/P (MAP) Pulse Ox O2 O2 Flow FiO2 Time Delivery Rate 04/30/19 69 132/58 06:33 (82) 04/30/19 98.6 18 92 02:58 04/29/19 Room Air 22:25 Intake and Output 04/29/19 04/29/19 04/30/19 1515:00 23:00 07:00 IntakeIntake Total 930 ml 400 ml BalanceBalance 930 ml 400 ml Results Result Diagram: 04/28/19 0438 04/28/19 0438 Results 24hrs Laboratory Tests Test 04/29/19 15:35 04/29/19 17:46 04/29/19 20:18 04/30/19 08:38 Bedside Glucose 191 175 164 123 Test 04/30/19 12:37 Bedside Glucose 111 Medications Medication Current Medications Ondansetron HCl (Zofran Inj) 4 mg Q6H PRN IV NAUSEA AND/OR VOMITING; Start 04/22/19 at 21:00 Acetaminophen (Tylenol Tab) 650 mg Q6H PRN PO MILD PAIN(1-3)OR ELEVATED TEMP; Start 04/22/19 at 21:00 Apixaban (Eliquis) 5 mg BID PO Last administered on 04/30/19 08:41; Admin Dose 5 MG; Start 04/22/19 at 21:00 Atorvastatin Calcium (Lipitor) 80 mg QHS PO Last administered on 04/29/19 20:21; Admin Dose 80 MG; Start 04/22/19 at 21:00 Chlorthalidone (Hygroton) 25 mg DAILY PO Last administered on 04/30/19 08:43; Admin Dose 25 MG; Start 04/23/19 at 09:00 Citalopram Hydrobromide (Celexa) 10 mg DAILY PO Last administered on 04/30/19 08:42; Admin Dose 10 MG; Start 04/23/19 at 09:00 Acetaminophen/ Hydrocodone Bitart ([place] (5/325)) 1 tab Q6 PRN PO PAIN LEVEL 4- 10 Last administered on 04/29/19 11:53; Admin Dose 1 TAB; Start 04/22/19 at 21:00 Levothyroxine Sodium (Synthroid) 100 mcg BEFORE BREAKFAST PO Last administered on 04/30/19 06:28; Admin Dose 100 MCG; Start 04/23/19 at 07:00 Liothyronine Sodium (Cytomel) 5 mcg BID PO Last administered on 04/30/19 08:42; Admin Dose 5 MCG; Start 04/22/19 at 21:00 Losartan Potassium (Cozaar) 50 mg BID PO Last administered on 04/30/19 08:42; Admin Dose 50 MG; Start 04/22/19 at 21:00 Metformin HCl (Glucophage) 500 mg WITH BREAKFAST DINNE PO Last administered on 04/30/19 08:42; Admin Dose 500 MG; Start 04/23/19 at 07:50 Diagnostic Test (Pha) (Accu-Chek) 1 ea 02 XX Last administered on 04/24/19 01:49; Admin Dose 1 EA; Start 04/23/19 at 02:00 Diagnostic Test (Pha) (Accu-Chek) 1 ea 2 HOURS AFTER MEALS XX Last administered on 04/30/19 09:52; Admin Dose 1 EA; Start 04/23/19 at 09:50 Insulin Aspart (Novolog Insulin Pen) NOVOLOG *MILD* ALGORITHM WITH MEALS BEDTIME SC Last administered on 04/29/19 17:53; Admin Dose 1 UNIT; Start 04/22/19 at 21:00 Famotidine (Pepcid) 20 mg Q12 PO Last administered on 04/30/19 08:43; Admin Dose 20 MG; Start 04/23/19 at 21:00 Metoprolol Tartrate (Lopressor) 50 mg BID PO Last administered on 04/30/19 08:42; Admin Dose 50 MG; Start 04/24/19 at 09:00 Insulin Glargine (Lantus) 25 units DAILY@2000 SC Last administered on 04/29/19 20:24; Admin Dose 25 UNITS; Start 04/24/19 at 20:00 Miscellaneous Information 1 ea NOTE XX ; Start 04/25/19 at 13:30 Glucose (Glutose) 15 gm Q15M PRN PO DECREASED GLUCOSE; Start 04/25/19 at 13:30 Glucose (Glutose) 22.5 gm Q15M PRN PO DECREASED GLUCOSE; Start 04/25/19 at 13:30 Dextrose (D50w Syringe) 25 ml Q15M PRN IV DECREASED GLUCOSE; Start 04/25/19 at 13:30 Dextrose (D50w Syringe) 50 ml Q15M PRN IV DECREASED GLUCOSE; Start 04/25/19 at 13:30 Glucagon (Glucagen) 1 mg Q15M PRN IM DECREASED GLUCOSE; Start 04/25/19 at 13:30 Glucose (Glutose) 15 gm Q15M PRN BUCCAL DECREASED GLUCOSE; Start 04/25/19 at 13:30 Ceftriaxone Sodium 50 ml @ 100 mls/hr Q24H IVPB Last administered on 04/29/19 14:11; Admin Dose 100 MLS/HR; Start 04/25/19 at 14:30 Amlodipine Besylate (Norvasc) 5 mg BID PO Last administered on 04/30/19 08:43; Admin Dose 5 MG; Start 04/28/19 at 09:00 Insulin Aspart (Novolog Insulin Pen) 8 unit WITH BREAKFAST SC Last administered on 04/30/19 08:45; Admin Dose 8 UNIT; Start 04/28/19 at 07:50 Insulin Aspart (Novolog Insulin Pen) 8 unit WITH LUNCH SC Last administered on 04/30/19 12:40; Admin Dose 8 UNIT; Start 04/28/19 at 11:40 Insulin Aspart (Novolog Insulin Pen) 8 unit WITH DINNER SC Last administered on 04/29/19 17:50; Admin Dose 8 UNIT; Start 04/28/19 at 17:55 Linagliptin (Tradjenta) 5 mg DAILY PO Last administered on 04/30/19 08:41; Admin Dose 5 MG; Start 04/28/19 at 09:00 Hydralazine HCl (Apresoline) 10 mg Q8 PO Last administered on 04/30/19 06:31; Admin Dose 10 MG; Start 04/27/19 at 22:00 Methylnaltrexone [place] (Relistor) 12 mg Q48H SC Last administered on 04/27/19 23:13; Admin Dose 12 MG; Start 04/27/19 at 23:00 Polyethylene Glycol (Miralax) 17 gm DAILY PRN PO CONSTIPATION Last administered on 04/28/19 08:58; Admin Dose 17 GM; Start 04/27/19 at 23:00 Bisacodyl (Dulcolax) 10 mg DAILY PRN PO CONSTIPATION Last administered on 04/28/19 02:00; Admin Dose 10 MG; Start 04/27/19 at 23:00 Sodium Biphosphate/ Sodium Phosphate (Fleet Enema) 133 ml DAILY PRN [place] CONSTIPATION Last administered on 04/28/19 16:57; Admin Dose 133 ML; Start 04/27/19 at 23:00 YOUNG GUNN NP Apr 30, 2019 13:47
--- NOTE | 2019-04-30 13:59 | DS ---
Date/Time of Note Date/Time of Note DATE: 04/30/19 TIME: 13:55 Discharge Summary Admission/Discharge Info Admit Date/Time Apr 22, 2019 at 13:14 Discharge Date/Time April 30, 2019 Discharge Diagnosis Right calcaneus osteomyelitis with bone culture growing E. coli; morbid obesity; diabetes mellitus type 2 on insulin; hyperlipidemia; hypertension; hypothyroidism; iron deficiency anemia Patient Condition: Fair Consults Podiatry-Dr. Williamson; cardiology-Dr. Atkinson; infectious disease-Dr. Hammond Procedures URGEON: Daphne Williamson DPM SEAMING MACHINE OPERATOR: Amado Michele DPM PREOPERATIVE DIAGNOSES: 1. Right foot Charcot 2. Right foot diabetic foot ulceration, failed outpatient treatment. 3. History of right foot calcaneal osteomyelitis. 4. Right foot mid foot instability. 5. Diabetes with peripheral neuropathy. 6. Obesity. 7. History of deep venous thrombosis. 8. Peripheral arterial disease, history of angioplasty, right anterior tibial. POSTOPERATIVE DIAGNOSES: 1. Right foot Charcot 2. Right foot diabetic foot ulceration, failed outpatient treatment. 3. History of right foot calcaneal osteomyelitis. 4. Right foot mid foot instability. 5. Diabetes with peripheral neuropathy. 6. Obesity. 7. History of deep venous thrombosis. 8. Peripheral arterial disease, history of angioplasty, right anterior tibial. PROCEDURES PERFORMED: 1. Right foot excisional debridement of skin, subcutaneous tissue, muscle and bone with biopsy of bone. 2. Right foot mid foot lateral column fusion with Cerament and allograft bone chips. 3. Right foot flexor digitorum brevis muscle flap. 4. Right foot abductor digiti minimi muscle flap. 5. Right foot fasciocutaneous rotation advancement random flap. 6. Right foot application of allograft Integra bilayer. 7. Right foot application of multiplane external fixator. Hx of Present Illness This is 1 of several [facility] [place] admissions for this 68-year old female is being brought in for right foot mid foot fusion with debridement ar-old and external fixation fixator placement for a right Charcot joint. Hospital Course Charming 68-year-old female admitted. While the bone biopsy was not tremendously abnormal with a positive culture she is can receive a 20-day course of IV antibiotic therapy. She will be at home receiving home health for the IV antibiotic therapy. Home Meds Active Scripts Ondansetron (Ondansetron Odt) 8 Mg Tab.rapdis, 8 MG PO Q6H PRN for NAUSEA AND/OR VOMITING, #6 TAB Prov:SHAD DUNLAP MD 06/20/18 Reported Medications Liothyronine Sodium* (Cytomel*) 5 Mcg Tablet, 5 MCG PO BID, TAB 04/22/19 Chlorthalidone* (Chlorthalidone*) 25 Mg Tablet, 25 MG PO DAILY, TAB 04/22/19 Metformin Hcl* (Metformin Hcl*) 500 Mg Tablet, 500 MG PO WITH BREAKFAST DINNE, #60 TAB 04/22/19 Metformin Hcl* (Metformin Hcl*) 500 Mg Tablet, 500 MG PO WITH BREAKFAST DINNE, #60 TAB 04/22/19 Citalopram Hydrobromide* (Citalopram Hydrobromide*) 10 Mg Tablet, 10 MG PO DAILY, #30 TAB 04/22/19 Apixaban* (Eliquis*) 5 Mg Tablet, 5 MG PO BID, TAB 04/22/19 Insulin Aspart* (Novolog Insulin Pen*) 100 Unit/Ml Soln, 0 SC .SLIDING SCALE AC, EA 05/03/18 Metoprolol Tartrate* (Lopressor*) 25 Mg Tablet, 25 MG PO BID, #60 TAB 05/03/18 Hydrocodone/Acetaminophen ([place] 5-325 Tablet) 1 Each Tablet, 1 EACH PO Q6 PRN for PAIN LEVEL 4-10, TAB 05/03/18 Acetaminophen* (Acetaminophen*) 650 Mg Tablet, 650 MG PO Q6H PRN for PAIN AND OR ELEVATED TEMP, #30 TAB 05/03/18 Atorvastatin* (Atorvastatin*) 80 Mg Tablet, 80 MG PO QHS, #30 TAB 05/03/18 Insulin Glargine* (Lantus*) 100 Unit/Ml Soln, 35 UNIT SC QHS, #1 VIAL 05/03/18 Levothyroxine Sodium* (Levoxyl*) 100 Mcg Tablet, 100 MCG PO BEFORE BREAKFAST, #30 TAB 05/03/18 Losartan Potassium* (Losartan Potassium*) 50 Mg Tablet, 50 MG PO BID, TAB 05/03/18 Follow-up Plan Podiatry in 2 weeks; my office in 8 weeks Primary Care Provider Not On Staff Doctor Time spent on discharge: > 30 minutes Pending Labs Laboratory Tests Test 04/29/19 15:35 04/29/19 17:46 04/29/19 20:18 04/30/19 08:38 Bedside 191 175 164 123 Glucose mg/dL (70-220) mg/dL (70-220) mg/dL (70-220) mg/dL (70-220) Test 04/30/19 12:37 Bedside 111 Glucose mg/dL (70-220) Copies To: CC: DAPHNE WILLIAMSON DPM; NATHAN HAMMOND MD; JAIME ATKINSON MD ; CHARLES BOWERS MD Apr 30, 2019 13:59
--- NOTE | 2019-04-30 14:00 | PDOCDIS ---
Discharge Instructions DIAGNOSIS Discharge Diagnosis Right calcaneus osteomyelitis with bone culture growing E. coli; morbid obesity; diabetes mellitus type 2 on insulin; hyperlipidemia; hypertension; hypothyroid ism; iron deficiency anemia CONDITION [id number] Patient Condition: [id number] Fair HOME CARE INSTRUCTIONS: Kathleen Special Diet: [id number] Diabetic diet ACTIVITY: [id number] Activity Restrictions: [id number] Keep Limb Elevated (Right lower extremity is nonweightbearing) FOLLOW UP/APPOINTMENTS Follow-up Plan Podiatry in 2 weeks; my office in 8 weeks CHARLES BOWERS MD Apr 30, 2019 14:00
[2019-04-30] MEDS ORDERED: AMLO2.5T78 PO (14:03)
[2019-04-30] MEDS ORDERED: LINA5TAB PO (14:03)
[2019-04-30] MEDS ORDERED: METO-429 PO (14:03)
[2019-04-30 14:05] VITALS: BP 110/66; RESP 19
[2019-04-30] MEDS: CEFTRIAXONE 2 GM/50 ML (PMX) 50 ML IVPB SCH (14:29)
[2019-04-30] MEDS: HYDROCODONE/APAP (5/325) TAB PO PRN (18:54)
== END 2019-04-30 19:00 | disposition home health service (06) | DRG 41 ==
LOC: EDSTATUS 07:30 → REC 04-22 13:14 → MS1 04-22 23:22
PROVIDERS: ADMIT Podiatrist Foot & Ankle Surgery; ATTEND Podiatrist Foot & Ankle Surgery
PROC: 0QBL0ZZ Excision of Right Tarsal, Open Approach (ICD-10-PCS; 2019-04-22)
PROC: 0SGH05Z Fusion of Right Tarsal Joint with External Fixation Device, Open Approach (ICD-10-PCS; 2019-04-22)
PROC: 0SGH0JZ Fusion of Right Tarsal Joint with Synthetic Substitute, Open Approach (ICD-10-PCS; 2019-04-22)
PROC: 0HRMXK3 Replacement of Right Foot Skin with Nonautologous Tissue Substitute, Full Thickness, External Approach (ICD-10-PCS; 2019-04-22)
PROC: 0KXV0ZZ Transfer Right Foot Muscle, Open Approach (ICD-10-PCS; 2019-04-22)
PROC: 0JXQ0ZZ Transfer Right Foot Subcutaneous Tissue and Fascia, Open Approach (ICD-10-PCS; 2019-04-22)
PROC: 0SGH0KZ Fusion of Right Tarsal Joint with Nonautologous Tissue Substitute, Open Approach (ICD-10-PCS; principal; 2019-04-22 16:30)
PROC: 0KXV0ZZ Transfer Right Foot Muscle, Open Approach (ICD-10-PCS; 2019-04-22 16:30)
PROC: 30233N1 Transfusion of Nonautologous Red Blood Cells into Peripheral Vein, Percutaneous Approach (ICD-10-PCS; 2019-04-24)
DX: E11.610 Type 2 diabetes mellitus with diabetic neuropathic arthropathy (principal); M86.171 Other acute osteomyelitis, right ankle and foot; L97.413 Non-pressure chronic ulcer of right heel and midfoot with necrosis of muscle; M84.474A Pathological fracture, right foot, initial encounter for fracture; Z68.41 Body mass index [BMI] 40.0-44.9, adult; M25.374 Other instability, right foot; E11.621 Type 2 diabetes mellitus with foot ulcer; E11.69 Type 2 diabetes mellitus with other specified complication; E66.01 Morbid (severe) obesity due to excess calories; E78.5 Hyperlipidemia, unspecified; E03.9 Hypothyroidism, unspecified; D50.9 Iron deficiency anemia, unspecified; E11.42 Type 2 diabetes mellitus with diabetic polyneuropathy; E11.51 Type 2 diabetes mellitus with diabetic peripheral angiopathy without gangrene; I12.9 Hypertensive chronic kidney disease with stage 1 through stage 4 chronic kidney disease, or unspecified chronic kidney disease; K59.03 Drug induced constipation; R07.9 Chest pain, unspecified; E11.22 Type 2 diabetes mellitus with diabetic chronic kidney disease; N18.3 Chronic kidney disease, stage 3 (moderate); E11.21 Type 2 diabetes mellitus with diabetic nephropathy; B96.20 Unspecified Escherichia coli [E. coli] as the cause of diseases classified elsewhere; Z79.4 Long term (current) use of insulin; Z98.62 Peripheral vascular angioplasty status; Z86.718 Personal history of other venous thrombosis and embolism
CPT/HCPCS: 36430; 36569; 71045; 73590; 73600; 73620; 80048; 80053; 82728; 82962; 83540; 83735; 84100; 84484; 85025; 85651; 86850; 86900; 86901; 86920; 87070; 87075; 87102; 87116; 88304; 88311; 93005; 97162; 97530; C1713; J0690; J0692; J0696; J1100; J1170; J1815; J2405; J2916; J3010; J3370; J7030; J7120; P9016; Q4104

== ENCOUNTER 2019-06-05 10:42 | Inpatient (IN) | payer MEDICARE, OTHER ==
[~2019-06-05] VITALS: Ht 165.1 cm; Wt 105.0 kg
[2019-06-05] VITALS (13 sets, daily range): BP systolic 117–162; BP diastolic 58–82; PULSE 68–88; RESP 10–20
[~2019-06-05 10:42] MED LIST changes: +AMLO2.5T78 PO; +AMLO5TAB4 PO; -APIX2.5T PO; +APIX5TAB PO; -ASC500 PO; -BISA5TAB6 PO; -CALC-216 PO; +CHLO25TA2 PO; +CITA10TA5 PO; -DOCU-159 PO; +DOXA2TAB61 PO; -HYDR12.58 PO; +INSU100I33 SC; -LACTINEX PO; +LEVO100T8 PO; +LINA5TAB PO; +LIOT5TAB3 PO; -MERO1VIA3 IV; +METO-429 PO; -METO25TA4 PO; -MULT-542 PO; -PROT946L PO; -VANC500F2 IV
[2019-06-05] MEDS ORDERED: ONDANSETRON 4 MG INJ IV PRN ×2 (13:00→21:00)
[2019-06-05] MEDS ORDERED: ACETAMINOPHEN 325 MG TAB PO PRN (13:00)
[2019-06-05] MEDS: metFORMIN 500 MG TAB PO SCH (18:00)
[2019-06-05] MEDS ORDERED: GLUCOSE GEL 15 GRAM TUBE BUCCAL PRN (18:00)
[2019-06-05] MEDS ORDERED: GLUCOSE GEL 15 GRAM TUBE PO PRN ×2 (18:00)
[2019-06-05] MEDS ORDERED: GLUCAGON 1 MG INJ IM PRN (18:00)
[2019-06-05] MEDS ORDERED: DEXTROSE 50% 50 ML SYRINGE IV PRN ×2 (18:00)
[2019-06-05] MEDS: INSULIN ASPART [NOVOLOG] 3 ML PEN SC SCH (18:00)
[2019-06-05] MEDS: ACCU-CHEK XX SCH ×2 (18:29→23:30)
[2019-06-05] MEDS ORDERED: hydrALAzine 20 MG INJ IV PRN (21:00)
[2019-06-05] MEDS ORDERED: MEPERIDINE 25 MG INJ IV PRN (21:00)
[2019-06-05] MEDS ORDERED: METOPROLOL 50 MG TAB PO SCH (21:00)
[2019-06-05] MEDS ORDERED: PROCHLORPERAZINE 10 MG INJ IV PRN (21:00)
[2019-06-05] MEDS ORDERED: FENTAnyl 50 MCG/ML VIAL IV PRN (21:00)
[2019-06-05] MEDS ORDERED: LABETALOL HCL 20MG INJ IV PRN (21:00)
[2019-06-05] MEDS ORDERED: CEFAZOLIN 1 GM INJ ONE (21:00)
[2019-06-05] MEDS ORDERED: HYDROmorphONE 1 MG/5 ML IV SYRINGE IV PRN ×3 (21:00)
[2019-06-05] MEDS ORDERED: INSULIN GLARGINE [LANTus] (100 UNITS/ML) SYG SC SCH (21:00)
[2019-06-05] MEDS ORDERED: INSULIN ASPART [NOVOLOG] 3 ML PEN SC ONE (21:00)
[2019-06-05] MEDS ORDERED: DIPHENHYDRAMINE 50 MG INJ IV PRN (21:00)
[2019-06-05] MEDS ORDERED: PROPOFOL 20 ML ONE (21:09)
[2019-06-05] MEDS ORDERED: LIDOCAINE 2% (SDV) 5 ML INJ ONE (21:09)
[2019-06-05] MEDS ORDERED: MIDAZOLAM 1 MG/ML 2 ML INJ ONE (21:09)
[2019-06-05] MEDS ORDERED: EPHEDrine 25 MG/5 ML SYG ONE (21:29)
[2019-06-05] MEDS ORDERED: POLYMYXIN/BACITRACIN 1L IRRIG IRR ONE (21:40)
[2019-06-05] MEDS ORDERED: ONDANSETRON 4 MG INJ ONE (21:41)
[2019-06-05] MEDS ORDERED: FAMOTIDINE 20 MG INJ ONE (21:41)
[2019-06-05] MEDS ORDERED: FENTAnyl 50 MCG/ML VIAL ONE (21:56)
[2019-06-05] MEDS ORDERED: ZINC SULFATE 220 MG CAP PO ONE (22:30)
[2019-06-05] MEDS: LIOTHYRONINE 5 MCG TAB PO SCH (23:40)
[2019-06-06] MEDS ORDERED: INSULIN GLARGINE [LANTus] (100 UNITS/ML) SYG SC SCH (00:08)
[2019-06-06] MEDS: LOSARTAN 50 MG TAB PO SCH ×3 (00:55→21:36)
[2019-06-06] MEDS: ATORVASTATIN 80 MG TAB PO SCH ×2 (00:55→21:36)
[2019-06-06] MEDS: METOPROLOL 50 MG TAB PO SCH ×3 (00:56→21:37)
[2019-06-06 01:54] VITALS: Ht 165.1 cm; Wt 105.0 kg
[2019-06-06 02:00] VITALS: BP 122/62; PULSE 99; RESP 16
[2019-06-06] MEDS: LEVOTHYROXINE 100 MCG TAB PO SCH (07:10)
[2019-06-06 07:42] VITALS: BP 129/62; PULSE 65; RESP 18
[2019-06-06] MEDS: ACCU-CHEK XX SCH ×4 (08:00→21:37)
[2019-06-06] MEDS: LINAGLIPTIN 5 MG TABLET PO SCH (08:18)
[2019-06-06] MEDS: AMLODIPINE 5 MG TAB PO SCH (08:19)
[2019-06-06] MEDS: metFORMIN 500 MG TAB PO SCH ×2 (08:20→17:38)
[2019-06-06] MEDS: INSULIN ASPART [NOVOLOG] 3 ML PEN SC SCH ×7 (08:24→21:00)
[2019-06-06] MEDS ORDERED: CITALOPRAM 20 MG TAB PO SCH (09:00)
[2019-06-06] MEDS ORDERED: ASCORBIC ACID 500 MG TAB PO ONE (09:00)
[2019-06-06] MEDS: CITALOPRAM 20 MG TAB PO SCH ×2 (09:00→12:11)
[2019-06-06] MEDS: CHLORTHALIDONE 25 MG TAB PO SCH ×2 (09:00→12:11)
[2019-06-06] MEDS: LIOTHYRONINE 5 MCG TAB PO SCH ×2 (09:00→23:02)
[2019-06-06 14:31] VITALS: BP 119/84; PULSE 69; RESP 18
[2019-06-06 20:17] VITALS: BP 107/55; PULSE 72; RESP 16
[2019-06-06] MEDS: INSULIN GLARGINE [LANTus] (100 UNITS/ML) SYG SC SCH (21:40)
[2019-06-06] MEDS: HEPARIN 5,000 UNIT/1 ML VIAL SC SCH (21:41)
[2019-06-07] MEDS: ACCU-CHEK XX SCH ×5 (02:00→21:00)
[2019-06-07 02:01] VITALS: BP_SYST 117; BP_SYST 99; BP_DIAS 53; BP_DIAS 57; PULSE 73; PULSE 95; RESP 15; RESP 18
[2019-06-07] MEDS: LEVOTHYROXINE 100 MCG TAB PO SCH (06:25)
[2019-06-07 07:35] VITALS: BP 139/60; PULSE 67; RESP 18
[2019-06-07] MEDS: INSULIN ASPART [NOVOLOG] 3 ML PEN SC SCH ×7 (08:16→21:00)
[2019-06-07] MEDS: LIOTHYRONINE 5 MCG TAB PO SCH ×2 (08:17→21:19)
[2019-06-07] MEDS: AMLODIPINE 5 MG TAB PO SCH (08:17)
[2019-06-07] MEDS: HEPARIN 5,000 UNIT/1 ML VIAL SC SCH ×2 (08:17→21:24)
[2019-06-07] MEDS: LINAGLIPTIN 5 MG TABLET PO SCH (08:18)
[2019-06-07] MEDS: CITALOPRAM 20 MG TAB PO SCH (08:18)
[2019-06-07] MEDS: metFORMIN 500 MG TAB PO SCH ×2 (08:18→17:41)
[2019-06-07] MEDS: LOSARTAN 50 MG TAB PO SCH ×2 (08:18→21:18)
[2019-06-07] MEDS: CHLORTHALIDONE 25 MG TAB PO SCH (08:18)
[2019-06-07] MEDS: METOPROLOL 50 MG TAB PO SCH ×2 (08:19→21:19)
[2019-06-07 14:05] VITALS: BP 116/56; PULSE 71; RESP 18
[2019-06-07] MEDS ORDERED: MAGNESIUM HYDROXIDE 30ML CUP PO ONE (16:30)
[2019-06-07] MEDS ORDERED: LACTATED RINGER'S 500 ML IV ONE (16:30)
[2019-06-07] MEDS ORDERED: SOD FERRIC GLUC COMPLX 125 MG in SOD CHLORIDE 0.9% 100 ML IVPB ONE (18:00)
[2019-06-07 20:00] VITALS: BP 139/66; PULSE 78; RESP 18
[2019-06-07] MEDS ORDERED: DOXAZOSIN 2 MG TAB PO SCH (21:00)
[2019-06-07] MEDS: ATORVASTATIN 80 MG TAB PO SCH (21:19)
[2019-06-07] MEDS: TERBINAFINE 250 MG TAB PO SCH (21:19)
[2019-06-07] MEDS: INSULIN GLARGINE [LANTus] (100 UNITS/ML) SYG SC SCH (21:23)
[2019-06-08] MEDS: ACCU-CHEK XX SCH ×5 (02:00→21:00)
[2019-06-08 02:07] VITALS: BP 136/66; PULSE 72; RESP 16
[2019-06-08] MEDS: LEVOTHYROXINE 100 MCG TAB PO SCH (06:22)
[2019-06-08 07:45] VITALS: BP 126/62; PULSE 65; RESP 20
[2019-06-08] MEDS: LIOTHYRONINE 5 MCG TAB PO SCH (08:45)
[2019-06-08] MEDS: INSULIN ASPART [NOVOLOG] 3 ML PEN SC SCH ×7 (08:46→21:00)
[2019-06-08] MEDS: CHLORTHALIDONE 25 MG TAB PO SCH (08:46)
[2019-06-08] MEDS: metFORMIN 500 MG TAB PO SCH ×2 (08:46→17:55)
[2019-06-08] MEDS: HEPARIN 5,000 UNIT/1 ML VIAL SC SCH ×2 (08:47→21:54)
[2019-06-08] MEDS: CITALOPRAM 20 MG TAB PO SCH (08:48)
[2019-06-08] MEDS: LOSARTAN 50 MG TAB PO SCH ×2 (08:48→21:50)
[2019-06-08] MEDS: LINAGLIPTIN 5 MG TABLET PO SCH (08:48)
[2019-06-08] MEDS: TERBINAFINE 250 MG TAB PO SCH ×2 (08:48→21:50)
[2019-06-08] MEDS: METOPROLOL 50 MG TAB PO SCH ×2 (08:49→21:50)
[2019-06-08] MEDS ORDERED: AMLODIPINE 2.5 MG TAB PO SCH (09:00)
[2019-06-08] MEDS: SOD FERRIC GLUC COMPLX 125 MG in SOD CHLORIDE 0.9% 100 ML IVPB SCH (13:21)
[2019-06-08 13:57] VITALS: BP 137/63; PULSE 66; RESP 20
[2019-06-08 20:00] VITALS: BP 157/68; PULSE 71; RESP 18
[2019-06-08 21:50] VITALS: BP 121/62; PULSE 70
[2019-06-08] MEDS: ATORVASTATIN 80 MG TAB PO SCH (21:50)
[2019-06-08] MEDS: DOXAZOSIN 2 MG TAB PO SCH (21:50)
[2019-06-08] MEDS: INSULIN GLARGINE [LANTus] (100 UNITS/ML) SYG SC SCH (21:54)
[2019-06-09] MEDS: LIOTHYRONINE 5 MCG TAB PO SCH ×3 (01:26→21:50)
[2019-06-09] MEDS: ACCU-CHEK XX SCH ×5 (02:00→21:00)
[2019-06-09 02:18] VITALS: BP 124/58; PULSE 66; RESP 18
[2019-06-09] MEDS: LEVOTHYROXINE 100 MCG TAB PO SCH (06:34)
[2019-06-09] MEDS: INSULIN ASPART [NOVOLOG] 3 ML PEN SC SCH ×7 (08:00→21:00)
[2019-06-09 08:02] VITALS: BP 127/60; PULSE 61; RESP 16
[2019-06-09] MEDS: metFORMIN 500 MG TAB PO SCH ×2 (08:17→17:29)
[2019-06-09] MEDS: TERBINAFINE 250 MG TAB PO SCH ×2 (08:17→21:50)
[2019-06-09] MEDS: METOPROLOL 50 MG TAB PO SCH ×2 (08:17→21:51)
[2019-06-09] MEDS: CHLORTHALIDONE 25 MG TAB PO SCH (08:18)
[2019-06-09] MEDS: LINAGLIPTIN 5 MG TABLET PO SCH (08:18)
[2019-06-09] MEDS: LOSARTAN 50 MG TAB PO SCH ×2 (08:18→21:51)
[2019-06-09] MEDS: CITALOPRAM 20 MG TAB PO SCH (08:18)
[2019-06-09] MEDS: HEPARIN 5,000 UNIT/1 ML VIAL SC SCH ×2 (08:21→21:54)
[2019-06-09] MEDS: SOD FERRIC GLUC COMPLX 125 MG in SOD CHLORIDE 0.9% 100 ML IVPB SCH (13:17)
[2019-06-09 14:52] VITALS: BP 113/56; PULSE 67; RESP 16
[2019-06-09 20:00] VITALS: BP 141/65; PULSE 68; RESP 18
[2019-06-09] MEDS: ATORVASTATIN 80 MG TAB PO SCH (21:50)
[2019-06-09] MEDS: DOXAZOSIN 2 MG TAB PO SCH (21:51)
[2019-06-09] MEDS: INSULIN GLARGINE [LANTus] (100 UNITS/ML) SYG SC SCH (21:54)
[2019-06-10] MEDS: ACCU-CHEK XX SCH ×5 (01:32→21:00)
[2019-06-10 02:00] VITALS: BP 116/58; PULSE 70; RESP 20
[2019-06-10] MEDS: LEVOTHYROXINE 100 MCG TAB PO SCH (06:45)
[2019-06-10 07:41] VITALS: BP 143/68; PULSE 66; RESP 18
[2019-06-10] MEDS: INSULIN ASPART [NOVOLOG] 3 ML PEN SC SCH ×7 (08:00→21:00)
[2019-06-10] MEDS: CITALOPRAM 20 MG TAB PO SCH (08:23)
[2019-06-10] MEDS: LIOTHYRONINE 5 MCG TAB PO SCH ×2 (08:23→21:51)
[2019-06-10] MEDS: LINAGLIPTIN 5 MG TABLET PO SCH (08:23)
[2019-06-10] MEDS: TERBINAFINE 250 MG TAB PO SCH ×2 (08:23→21:51)
[2019-06-10] MEDS: CHLORTHALIDONE 25 MG TAB PO SCH (08:24)
[2019-06-10] MEDS: metFORMIN 500 MG TAB PO SCH ×2 (08:24→17:47)
[2019-06-10] MEDS: METOPROLOL 50 MG TAB PO SCH ×2 (08:25→21:51)
[2019-06-10] MEDS: LOSARTAN 50 MG TAB PO SCH ×2 (08:25→21:52)
[2019-06-10] MEDS: HEPARIN 5,000 UNIT/1 ML VIAL SC SCH ×2 (08:27→21:51)
[2019-06-10] MEDS: SOD FERRIC GLUC COMPLX 125 MG in SOD CHLORIDE 0.9% 100 ML IVPB SCH (12:31)
[2019-06-10] MEDS ORDERED: DOCUSATE SODIUM 100 MG CAP PO ONE (16:30)
[2019-06-10 16:35] VITALS: BP 123/59; PULSE 71; RESP 18
[2019-06-10] MEDS: ACETAMINOPHEN 325 MG TAB PO PRN (16:50)
[2019-06-10 19:59] VITALS: BP 134/64; PULSE 70; RESP 17
[2019-06-10] MEDS: INSULIN GLARGINE [LANTus] (100 UNITS/ML) SYG SC SCH (21:50)
[2019-06-10] MEDS: DOCUSATE SODIUM 100 MG CAP PO SCH (21:51)
[2019-06-10] MEDS: ATORVASTATIN 80 MG TAB PO SCH (21:51)
[2019-06-10] MEDS: DOXAZOSIN 2 MG TAB PO SCH (21:52)
[2019-06-11] MEDS: ACCU-CHEK XX SCH ×5 (01:11→21:00)
[2019-06-11 01:41] VITALS: BP 124/63; PULSE 68; RESP 18
[2019-06-11] MEDS: LEVOTHYROXINE 100 MCG TAB PO SCH (06:23)
[2019-06-11 07:48] VITALS: BP 132/63; PULSE 66; RESP 18
[2019-06-11] MEDS: INSULIN ASPART [NOVOLOG] 3 ML PEN SC SCH ×7 (08:00→21:00)
[2019-06-11] MEDS: LIOTHYRONINE 5 MCG TAB PO SCH ×2 (08:31→21:11)
[2019-06-11] MEDS: metFORMIN 500 MG TAB PO SCH ×2 (08:31→17:50)
[2019-06-11] MEDS: METOPROLOL 50 MG TAB PO SCH ×2 (08:31→21:13)
[2019-06-11] MEDS: LOSARTAN 50 MG TAB PO SCH ×2 (08:31→21:12)
[2019-06-11] MEDS: CITALOPRAM 20 MG TAB PO SCH (08:32)
[2019-06-11] MEDS: LINAGLIPTIN 5 MG TABLET PO SCH (08:32)
[2019-06-11] MEDS: DOCUSATE SODIUM 100 MG CAP PO SCH ×2 (08:32→21:11)
[2019-06-11] MEDS: TERBINAFINE 250 MG TAB PO SCH ×2 (08:32→21:12)
[2019-06-11] MEDS: CHLORTHALIDONE 25 MG TAB PO SCH (08:32)
[2019-06-11] MEDS: HEPARIN 5,000 UNIT/1 ML VIAL SC SCH ×2 (08:33→21:21)
[2019-06-11] MEDS: ACETAMINOPHEN 325 MG TAB PO PRN (09:37)
[2019-06-11 14:20] VITALS: BP 135/60; PULSE 69; RESP 18
[2019-06-11] MEDS ORDERED: MAGNESIUM CITRATE 300 ML BTL PO ONE (18:00)
[2019-06-11 20:18] VITALS: BP 128/60; PULSE 78; RESP 19
[2019-06-11] MEDS: INSULIN GLARGINE [LANTus] (100 UNITS/ML) SYG SC SCH (21:00)
[2019-06-11] MEDS: DOXAZOSIN 2 MG TAB PO SCH (21:12)
[2019-06-11] MEDS: ATORVASTATIN 80 MG TAB PO SCH (21:12)
[2019-06-11] MEDS ORDERED: INSULIN GLARGINE [LANTus] (100 UNITS/ML) SYG SC ONE (22:00)
[2019-06-12 01:57] VITALS: BP 133/60; PULSE 75; RESP 18
[2019-06-12] MEDS: ACCU-CHEK XX SCH ×3 (02:00→11:30)
[2019-06-12] MEDS: LEVOTHYROXINE 100 MCG TAB PO SCH (06:41)
[2019-06-12] MEDS: INSULIN ASPART [NOVOLOG] 3 ML PEN SC SCH ×4 (08:00→12:51)
[2019-06-12 08:05] VITALS: BP 143/65; PULSE 70; RESP 18
[2019-06-12] MEDS: LIOTHYRONINE 5 MCG TAB PO SCH (08:18)
[2019-06-12] MEDS: CITALOPRAM 20 MG TAB PO SCH (08:19)
[2019-06-12] MEDS: LINAGLIPTIN 5 MG TABLET PO SCH (08:19)
[2019-06-12] MEDS: TERBINAFINE 250 MG TAB PO SCH (08:19)
[2019-06-12] MEDS: CHLORTHALIDONE 25 MG TAB PO SCH (08:19)
[2019-06-12] MEDS: METOPROLOL 50 MG TAB PO SCH (08:19)
[2019-06-12] MEDS: DOCUSATE SODIUM 100 MG CAP PO SCH (08:20)
[2019-06-12] MEDS: LOSARTAN 50 MG TAB PO SCH (08:20)
[2019-06-12] MEDS: HEPARIN 5,000 UNIT/1 ML VIAL SC SCH (08:22)
[2019-06-12] MEDS: metFORMIN 500 MG TAB PO SCH (08:27)
[2019-06-12 15:00] VITALS: BP 99/55; PULSE 72; RESP 18
== END 2019-06-12 17:50 | DRG 464 ==
LOC: E/R 10:42 → 2NE 12:35
PROVIDERS: ADMIT Internal Medicine; ATTEND Internal Medicine
PROC: 0HRMXK3 Replacement of Right Foot Skin with Nonautologous Tissue Substitute, Full Thickness, External Approach (ICD-10-PCS; 2019-06-05)
PROC: 0KBV0ZZ Excision of Right Foot Muscle, Open Approach (ICD-10-PCS; 2019-06-05)
PROC: 0QWGX5Z Revision of External Fixation Device in Right Tibia, External Approach (ICD-10-PCS; principal; 2019-06-05 21:15)
DX: T84.213A Breakdown (mechanical) of internal fixation device of bones of foot and toes, initial encounter (principal); M86.9 Osteomyelitis, unspecified; E11.610 Type 2 diabetes mellitus with diabetic neuropathic arthropathy; E11.42 Type 2 diabetes mellitus with diabetic polyneuropathy; E11.621 Type 2 diabetes mellitus with foot ulcer; E66.01 Morbid (severe) obesity due to excess calories; E78.5 Hyperlipidemia, unspecified; E03.9 Hypothyroidism, unspecified; I10 Essential (primary) hypertension; Y84.8 Other medical procedures as the cause of abnormal reaction of the patient, or of later complication, without mention of misadventure at the time of the procedure; Y92.019 Unspecified place in single-family (private) house as the place of occurrence of the external cause; Z68.38 Body mass index [BMI] 38.0-38.9, adult; Z79.4 Long term (current) use of insulin
CPT/HCPCS: 11042; 71045; 73600; 73630; 80048; 80053; 82962; 84443; 85025; 85610; 85651; 85730; 93005; 97110; 97162; 97530; C1713; J0690; J1170; J1644; J1815; J2175; J2250; J2405; J2916; J3010; J7120

== ENCOUNTER 2019-06-12 16:03 | Inpatient (IN) | payer MEDICARE, OTHER ==
[~2019-06-12] VITALS: Ht 165.1 cm; Wt 105.0 kg
[~2019-06-12 16:03] MED LIST changes: -ACET-2047 PO; -LANT3I SC; -LEVO100T82 PO; -ONDA8TAB14 PO
[2019-06-12] MEDS ORDERED: PENDING SANTYL ORDER FOR WOUND CARE XX PRN (18:00)
[2019-06-12] MEDS ORDERED: BISACODYL 10 MG SUPP PR PRN (18:00)
[2019-06-12] MEDS ORDERED: LACTULOSE 30ML CUP PO PRN (18:00)
[2019-06-12] MEDS ORDERED: MAGNESIUM HYDROXIDE 30ML CUP PO PRN (18:00)
[2019-06-12 18:06] VITALS: BP 157/67; PULSE 72; RESP 18
[2019-06-12] MEDS ORDERED: DEXTROSE 50% 50 ML SYRINGE IV PRN ×2 (18:30)
[2019-06-12] MEDS ORDERED: GLUCOSE GEL 15 GRAM TUBE PO PRN ×2 (18:30)
[2019-06-12] MEDS ORDERED: GLUCOSE GEL 15 GRAM TUBE BUCCAL PRN (18:30)
[2019-06-12] MEDS ORDERED: GLUCAGON 1 MG INJ IM PRN (18:30)
[2019-06-12 19:44] VITALS: BP 141/64; PULSE 68; RESP 18
[2019-06-12] MEDS ORDERED: ACCU-CHEK XX SCH ×2 (21:00)
[2019-06-12] MEDS: INSULIN ASPART [NOVOLOG] 3 ML PEN SC SCH (21:00)
[2019-06-12] MEDS: SENNA TAB PO SCH (21:14)
[2019-06-12] MEDS: TERBINAFINE 250 MG TAB PO SCH (21:14)
[2019-06-12] MEDS: DOCUSATE SODIUM 100 MG CAP PO SCH (21:15)
[2019-06-12] MEDS: ATORVASTATIN 80 MG TAB PO SCH (21:15)
[2019-06-12] MEDS: APIXABAN 5 MG TABLET PO SCH (21:16)
[2019-06-12] MEDS: LIOTHYRONINE 5 MCG TAB PO SCH (21:16)
[2019-06-12] MEDS: DOXAZOSIN 4 MG TAB PO SCH (21:17)
[2019-06-12] MEDS: METOPROLOL 50 MG TAB PO SCH (21:17)
[2019-06-12] MEDS: LOSARTAN 50 MG TAB PO SCH (21:17)
[2019-06-12] MEDS: ACCU-CHEK XX SCH (21:25)
[2019-06-12] MEDS: INSULIN GLARGINE [LANTus] (100 UNITS/ML) SYG SC SCH (21:25)
[2019-06-13 02:00] VITALS: BP 145/67; PULSE 70; RESP 18
[2019-06-13] MEDS: ACCU-CHEK XX SCH ×5 (02:00→21:35)
[2019-06-13] MEDS: LEVOTHYROXINE 100 MCG TAB PO SCH (06:57)
[2019-06-13 07:00] VITALS: BP 119/58; PULSE 58; RESP 18
[2019-06-13] MEDS: INSULIN ASPART [NOVOLOG] 3 ML PEN SC SCH ×7 (07:35→21:00)
[2019-06-13] MEDS: metFORMIN 500 MG TAB PO SCH ×2 (07:40→17:18)
[2019-06-13] MEDS: CHLORTHALIDONE 25 MG TAB PO SCH (08:48)
[2019-06-13] MEDS: DOCUSATE SODIUM 100 MG CAP PO SCH ×2 (08:48→21:35)
[2019-06-13] MEDS: LINAGLIPTIN 5 MG TABLET PO SCH (08:48)
[2019-06-13] MEDS: LIOTHYRONINE 5 MCG TAB PO SCH ×2 (08:48→21:35)
[2019-06-13] MEDS: CITALOPRAM 20 MG TAB PO SCH (08:48)
[2019-06-13] MEDS: TERBINAFINE 250 MG TAB PO SCH ×2 (08:48→21:35)
[2019-06-13] MEDS: APIXABAN 5 MG TABLET PO SCH ×2 (08:48→21:37)
[2019-06-13] MEDS: LOSARTAN 50 MG TAB PO SCH ×2 (08:49→21:37)
[2019-06-13] MEDS: METOPROLOL 50 MG TAB PO SCH ×2 (08:49→21:37)
[2019-06-13 14:00] VITALS: BP 112/55; PULSE 64; RESP 18
[2019-06-13] MEDS: ACETAMINOPHEN 325 MG TAB PO PRN (14:16)
[2019-06-13 19:28] VITALS: BP 123/62; PULSE 66; RESP 18
[2019-06-13] MEDS: DOXAZOSIN 4 MG TAB PO SCH (21:35)
[2019-06-13] MEDS: ATORVASTATIN 80 MG TAB PO SCH (21:35)
[2019-06-13] MEDS: SENNA TAB PO SCH (21:35)
[2019-06-13] MEDS: INSULIN GLARGINE [LANTus] (100 UNITS/ML) SYG SC SCH (21:36)
[2019-06-14 02:00] VITALS: BP 138/64; PULSE 64; RESP 18
[2019-06-14] MEDS: ACCU-CHEK XX SCH ×5 (02:00→21:56)
[2019-06-14] MEDS: LEVOTHYROXINE 100 MCG TAB PO SCH (06:26)
[2019-06-14 07:00] VITALS: BP 147/64; PULSE 67; RESP 18
[2019-06-14] MEDS: ACETAMINOPHEN 325 MG TAB PO PRN (08:01)
[2019-06-14] MEDS: metFORMIN 500 MG TAB PO SCH ×2 (08:34→17:36)
[2019-06-14] MEDS: INSULIN ASPART [NOVOLOG] 3 ML PEN SC SCH ×7 (08:35→21:00)
[2019-06-14] MEDS: LIOTHYRONINE 5 MCG TAB PO SCH ×2 (08:37→21:50)
[2019-06-14] MEDS: APIXABAN 5 MG TABLET PO SCH ×2 (08:37→21:49)
[2019-06-14] MEDS: TERBINAFINE 250 MG TAB PO SCH ×2 (08:37→21:50)
[2019-06-14] MEDS: CITALOPRAM 20 MG TAB PO SCH (08:38)
[2019-06-14] MEDS: DOCUSATE SODIUM 100 MG CAP PO SCH ×2 (08:39→21:50)
[2019-06-14] MEDS: LINAGLIPTIN 5 MG TABLET PO SCH (08:40)
[2019-06-14] MEDS: LOSARTAN 50 MG TAB PO SCH ×2 (08:48→21:49)
[2019-06-14] MEDS: CHLORTHALIDONE 25 MG TAB PO SCH (08:48)
[2019-06-14] MEDS: METOPROLOL 50 MG TAB PO SCH ×2 (08:48→21:50)
[2019-06-14 14:00] VITALS: BP 120/60; PULSE 65; RESP 18
[2019-06-14] MEDS ORDERED: FOSFOMYCIN 3 GM PACKET PO ONE (15:30)
[2019-06-14 19:39] VITALS: BP 142/67; PULSE 68; RESP 18
[2019-06-14] MEDS: DOXAZOSIN 4 MG TAB PO SCH (21:50)
[2019-06-14] MEDS: SENNA TAB PO SCH (21:50)
[2019-06-14] MEDS: ATORVASTATIN 80 MG TAB PO SCH (21:50)
[2019-06-14] MEDS: INSULIN GLARGINE [LANTus] (100 UNITS/ML) SYG SC SCH (21:53)
[2019-06-15 02:00] VITALS: BP 138/65; PULSE 72; RESP 18
[2019-06-15] MEDS: ACCU-CHEK XX SCH ×5 (02:00→20:43)
[2019-06-15] MEDS: LEVOTHYROXINE 100 MCG TAB PO SCH (05:45)
[2019-06-15 07:30] VITALS: BP 101/52; PULSE 64; RESP 20
[2019-06-15] MEDS: LINAGLIPTIN 5 MG TABLET PO SCH (08:07)
[2019-06-15] MEDS: metFORMIN 500 MG TAB PO SCH ×2 (08:07→17:45)
[2019-06-15] MEDS: INSULIN ASPART [NOVOLOG] 3 ML PEN SC SCH ×7 (08:09→20:39)
[2019-06-15] MEDS: DOCUSATE SODIUM 100 MG CAP PO SCH ×2 (08:15→20:39)
[2019-06-15] MEDS: CITALOPRAM 20 MG TAB PO SCH (08:15)
[2019-06-15] MEDS: LIOTHYRONINE 5 MCG TAB PO SCH ×2 (08:16→20:39)
[2019-06-15] MEDS: APIXABAN 5 MG TABLET PO SCH ×2 (08:16→20:38)
[2019-06-15] MEDS: TERBINAFINE 250 MG TAB PO SCH ×2 (08:16→20:39)
[2019-06-15 09:34] VITALS: BP 135/57; PULSE 68
[2019-06-15] MEDS: LOSARTAN 50 MG TAB PO SCH ×2 (09:36→20:39)
[2019-06-15] MEDS: METOPROLOL 50 MG TAB PO SCH ×2 (09:36→20:39)
[2019-06-15] MEDS: CHLORTHALIDONE 25 MG TAB PO SCH (09:36)
[2019-06-15] MEDS ORDERED: INSULIN ASPART [NOVOLOG] 3 ML PEN SC ONE (13:30)
[2019-06-15] MEDS ORDERED: ACCU-CHEK XX ONE (13:30)
[2019-06-15 14:00] VITALS: BP 127/60; PULSE 71; RESP 18
[2019-06-15 19:49] VITALS: BP 117/56; PULSE 68; RESP 18
[2019-06-15] MEDS: TRIMETHOPRIM/SULFAMETHOX (DS) TAB PO SCH (20:38)
[2019-06-15] MEDS: SENNA TAB PO SCH (20:38)
[2019-06-15] MEDS: DOXAZOSIN 4 MG TAB PO SCH (20:39)
[2019-06-15] MEDS: ATORVASTATIN 80 MG TAB PO SCH (20:39)
[2019-06-15] MEDS: INSULIN GLARGINE [LANTus] (100 UNITS/ML) SYG SC SCH (20:43)
[2019-06-16] MEDS: ACCU-CHEK XX SCH ×5 (02:00→21:32)
[2019-06-16 02:55] VITALS: BP 119/60; PULSE 65; RESP 18
[2019-06-16] MEDS: LEVOTHYROXINE 100 MCG TAB PO SCH (06:14)
[2019-06-16 07:00] VITALS: BP 149/54; PULSE 60; RESP 18
[2019-06-16] MEDS: metFORMIN 500 MG TAB PO SCH ×2 (07:57→17:37)
[2019-06-16] MEDS: INSULIN ASPART [NOVOLOG] 3 ML PEN SC SCH ×7 (07:58→21:00)
[2019-06-16] MEDS: LINAGLIPTIN 5 MG TABLET PO SCH (08:48)
[2019-06-16] MEDS: CHLORTHALIDONE 25 MG TAB PO SCH (08:49)
[2019-06-16] MEDS: CITALOPRAM 20 MG TAB PO SCH (08:49)
[2019-06-16] MEDS: TRIMETHOPRIM/SULFAMETHOX (DS) TAB PO SCH ×2 (08:50→21:23)
[2019-06-16] MEDS: LIOTHYRONINE 5 MCG TAB PO SCH ×2 (08:50→21:23)
[2019-06-16] MEDS: METOPROLOL 50 MG TAB PO SCH ×2 (08:50→21:24)
[2019-06-16] MEDS: DOCUSATE SODIUM 100 MG CAP PO SCH ×2 (08:50→21:23)
[2019-06-16] MEDS: APIXABAN 5 MG TABLET PO SCH ×2 (08:50→21:23)
[2019-06-16] MEDS: LOSARTAN 50 MG TAB PO SCH ×2 (08:50→21:24)
[2019-06-16] MEDS: TERBINAFINE 250 MG TAB PO SCH ×2 (08:50→21:23)
[2019-06-16 14:00] VITALS: BP 130/62; PULSE 66; RESP 18
[2019-06-16 20:00] VITALS: BP 136/63; PULSE 73; RESP 18
[2019-06-16] MEDS: SENNA TAB PO SCH (21:24)
[2019-06-16] MEDS: ATORVASTATIN 80 MG TAB PO SCH (21:24)
[2019-06-16] MEDS: DOXAZOSIN 4 MG TAB PO SCH (21:25)
[2019-06-16] MEDS: INSULIN GLARGINE [LANTus] (100 UNITS/ML) SYG SC SCH (21:31)
[2019-06-17] MEDS: ACCU-CHEK XX SCH ×5 (01:25→21:11)
[2019-06-17 02:00] VITALS: BP 107/57; PULSE 62; RESP 18
[2019-06-17] MEDS: LEVOTHYROXINE 100 MCG TAB PO SCH (06:40)
[2019-06-17 07:00] VITALS: BP 115/54; PULSE 55; RESP 18
[2019-06-17] MEDS: INSULIN ASPART [NOVOLOG] 3 ML PEN SC SCH ×7 (07:35→21:00)
[2019-06-17] MEDS: LINAGLIPTIN 5 MG TABLET PO SCH (08:05)
[2019-06-17] MEDS: metFORMIN 500 MG TAB PO SCH ×2 (08:05→17:26)
[2019-06-17] MEDS: TRIMETHOPRIM/SULFAMETHOX (DS) TAB PO SCH ×2 (08:49→21:07)
[2019-06-17] MEDS: CITALOPRAM 20 MG TAB PO SCH (08:50)
[2019-06-17] MEDS: TERBINAFINE 250 MG TAB PO SCH ×2 (08:51→21:07)
[2019-06-17] MEDS: CHLORTHALIDONE 25 MG TAB PO SCH (08:51)
[2019-06-17] MEDS: APIXABAN 5 MG TABLET PO SCH ×2 (08:51→21:09)
[2019-06-17] MEDS: DOCUSATE SODIUM 100 MG CAP PO SCH ×2 (08:51→21:09)
[2019-06-17] MEDS: LIOTHYRONINE 5 MCG TAB PO SCH ×2 (08:51→21:09)
[2019-06-17] MEDS: METOPROLOL 50 MG TAB PO SCH ×2 (08:53→21:10)
[2019-06-17] MEDS: LOSARTAN 50 MG TAB PO SCH ×2 (08:55→21:10)
[2019-06-17 14:00] VITALS: BP 134/63; PULSE 71; RESP 18
[2019-06-17 20:00] VITALS: BP 128/62; PULSE 73; RESP 18
[2019-06-17] MEDS: SENNA TAB PO SCH (21:00)
[2019-06-17] MEDS: DOXAZOSIN 4 MG TAB PO SCH (21:09)
[2019-06-17] MEDS: ATORVASTATIN 80 MG TAB PO SCH (21:11)
[2019-06-17] MEDS: INSULIN GLARGINE [LANTus] (100 UNITS/ML) SYG SC SCH (21:13)
[2019-06-18] MEDS: ACCU-CHEK XX SCH ×5 (02:00→21:37)
[2019-06-18 02:26] VITALS: BP 132/60; PULSE 70; RESP 18
[2019-06-18] MEDS: LEVOTHYROXINE 100 MCG TAB PO SCH (06:41)
[2019-06-18 07:00] VITALS: BP 127/60; PULSE 66; RESP 18
[2019-06-18] MEDS: metFORMIN 500 MG TAB PO SCH ×2 (08:16→17:42)
[2019-06-18] MEDS: LINAGLIPTIN 5 MG TABLET PO SCH (08:16)
[2019-06-18] MEDS: INSULIN ASPART [NOVOLOG] 3 ML PEN SC SCH ×7 (08:18→21:00)
[2019-06-18] MEDS: LOSARTAN 50 MG TAB PO SCH ×2 (10:56→20:20)
[2019-06-18] MEDS: LIOTHYRONINE 5 MCG TAB PO SCH ×2 (10:56→20:20)
[2019-06-18] MEDS: TERBINAFINE 250 MG TAB PO SCH ×2 (10:57→20:20)
[2019-06-18] MEDS: APIXABAN 5 MG TABLET PO SCH ×2 (10:57→20:20)
[2019-06-18] MEDS: CITALOPRAM 20 MG TAB PO SCH (10:57)
[2019-06-18] MEDS: TRIMETHOPRIM/SULFAMETHOX (DS) TAB PO SCH (10:57)
[2019-06-18] MEDS: DOCUSATE SODIUM 100 MG CAP PO SCH ×2 (10:58→20:21)
[2019-06-18] MEDS: CHLORTHALIDONE 25 MG TAB PO SCH (10:58)
[2019-06-18] MEDS: METOPROLOL 50 MG TAB PO SCH ×2 (10:59→20:21)
[2019-06-18] MEDS: ACETAMINOPHEN 325 MG TAB PO PRN (12:03)
[2019-06-18 14:00] VITALS: BP 114/55; PULSE 64; RESP 18
[2019-06-18 19:28] VITALS: BP 148/62; PULSE 68; RESP 18
[2019-06-18] MEDS: ATORVASTATIN 80 MG TAB PO SCH (20:20)
[2019-06-18] MEDS: DOXAZOSIN 4 MG TAB PO SCH (20:20)
[2019-06-18] MEDS: SENNA TAB PO SCH (20:21)
[2019-06-18] MEDS: INSULIN GLARGINE [LANTus] (100 UNITS/ML) SYG SC SCH (20:23)
[2019-06-19] MEDS: ACCU-CHEK XX SCH ×5 (02:00→21:00)
[2019-06-19 03:06] VITALS: BP 132/60; PULSE 64; RESP 18
[2019-06-19] MEDS: LEVOTHYROXINE 100 MCG TAB PO SCH (06:23)
[2019-06-19] MEDS: INSULIN ASPART [NOVOLOG] 3 ML PEN SC SCH ×7 (07:35→21:00)
[2019-06-19] MEDS: metFORMIN 500 MG TAB PO SCH ×2 (07:51→17:22)
[2019-06-19 08:04] VITALS: BP 109/52; PULSE 71; RESP 19
[2019-06-19] MEDS: LIOTHYRONINE 5 MCG TAB PO SCH ×2 (09:07→20:15)
[2019-06-19] MEDS: LINAGLIPTIN 5 MG TABLET PO SCH (09:07)
[2019-06-19] MEDS: DOCUSATE SODIUM 100 MG CAP PO SCH ×2 (09:07→20:15)
[2019-06-19] MEDS: TERBINAFINE 250 MG TAB PO SCH (09:07)
[2019-06-19] MEDS: CHLORTHALIDONE 25 MG TAB PO SCH (09:08)
[2019-06-19] MEDS: TRIMETHOPRIM/SULFAMETHOX (DS) TAB PO SCH (09:08)
[2019-06-19] MEDS: LOSARTAN 50 MG TAB PO SCH ×2 (09:09→20:16)
[2019-06-19] MEDS: APIXABAN 5 MG TABLET PO SCH ×2 (09:09→20:16)
[2019-06-19] MEDS: METOPROLOL 50 MG TAB PO SCH ×2 (09:09→20:17)
[2019-06-19] MEDS: CITALOPRAM 20 MG TAB PO SCH (09:13)
[2019-06-19] MEDS: ACETAMINOPHEN 325 MG TAB PO PRN (09:13)
[2019-06-19 14:00] VITALS: BP 132/64; PULSE 68; RESP 18
[2019-06-19 19:41] VITALS: BP 148/56; PULSE 70; RESP 18
[2019-06-19] MEDS: ATORVASTATIN 80 MG TAB PO SCH (20:15)
[2019-06-19] MEDS: SENNA TAB PO SCH (20:16)
[2019-06-19] MEDS: DOXAZOSIN 4 MG TAB PO SCH (20:17)
[2019-06-19] MEDS: INSULIN GLARGINE [LANTus] (100 UNITS/ML) SYG SC SCH (20:44)
[2019-06-20 02:00] VITALS: BP 134/62; RESP 18
[2019-06-20] MEDS: ACCU-CHEK XX SCH ×5 (02:00→21:00)
[2019-06-20] MEDS: LEVOTHYROXINE 100 MCG TAB PO SCH (05:44)
[2019-06-20 07:30] VITALS: BP 115/57; PULSE 66; RESP 18
[2019-06-20] MEDS: INSULIN ASPART [NOVOLOG] 3 ML PEN SC SCH ×7 (07:35→21:00)
[2019-06-20] MEDS: metFORMIN 500 MG TAB PO SCH ×2 (08:25→17:21)
[2019-06-20] MEDS: LIOTHYRONINE 5 MCG TAB PO SCH ×2 (10:23→21:01)
[2019-06-20] MEDS: LINAGLIPTIN 5 MG TABLET PO SCH (10:23)
[2019-06-20] MEDS: TRIMETHOPRIM/SULFAMETHOX (DS) TAB PO SCH (10:23)
[2019-06-20] MEDS: DOCUSATE SODIUM 100 MG CAP PO SCH ×2 (10:24→21:00)
[2019-06-20] MEDS: CITALOPRAM 20 MG TAB PO SCH (10:24)
[2019-06-20] MEDS: LOSARTAN 50 MG TAB PO SCH ×2 (10:24→21:01)
[2019-06-20] MEDS: METOPROLOL 50 MG TAB PO SCH ×2 (10:25→21:01)
[2019-06-20] MEDS: APIXABAN 5 MG TABLET PO SCH ×2 (10:25→21:01)
[2019-06-20] MEDS: CHLORTHALIDONE 25 MG TAB PO SCH (10:26)
[2019-06-20 14:00] VITALS: BP 122/57; PULSE 67; RESP 20
[2019-06-20 19:21] VITALS: BP 132/65; PULSE 68; RESP 18
[2019-06-20] MEDS: SENNA TAB PO SCH (21:00)
[2019-06-20] MEDS: ATORVASTATIN 80 MG TAB PO SCH (21:01)
[2019-06-20] MEDS: DOXAZOSIN 4 MG TAB PO SCH (21:02)
[2019-06-20] MEDS: INSULIN GLARGINE [LANTus] (100 UNITS/ML) SYG SC SCH (21:09)
[2019-06-21] VITALS: BP 132/62; PULSE 64
[2019-06-21 02:00] VITALS: BP 128/64; PULSE 67; RESP 18
[2019-06-21] MEDS: ACCU-CHEK XX SCH ×5 (02:00→20:57)
[2019-06-21] MEDS: LEVOTHYROXINE 100 MCG TAB PO SCH (05:41)
[2019-06-21 07:30] VITALS: BP 101/50; PULSE 58; RESP 18
[2019-06-21] MEDS: INSULIN ASPART [NOVOLOG] 3 ML PEN SC SCH ×7 (07:35→20:57)
[2019-06-21] MEDS: LINAGLIPTIN 5 MG TABLET PO SCH (08:14)
[2019-06-21] MEDS: metFORMIN 500 MG TAB PO SCH ×2 (08:14→17:28)
[2019-06-21] MEDS: METOPROLOL 50 MG TAB PO SCH ×2 (09:00→20:57)
[2019-06-21] MEDS: DOCUSATE SODIUM 100 MG CAP PO SCH ×2 (09:00→20:56)
[2019-06-21] MEDS: LOSARTAN 50 MG TAB PO SCH ×2 (09:00→20:57)
[2019-06-21] MEDS: CHLORTHALIDONE 25 MG TAB PO SCH (09:00)
[2019-06-21] MEDS: LIOTHYRONINE 5 MCG TAB PO SCH ×2 (10:04→20:57)
[2019-06-21] MEDS: APIXABAN 5 MG TABLET PO SCH ×2 (10:04→20:57)
[2019-06-21] MEDS: CITALOPRAM 20 MG TAB PO SCH (10:04)
[2019-06-21] MEDS: TRIMETHOPRIM/SULFAMETHOX (DS) TAB PO SCH (10:04)
[2019-06-21] MEDS: ACETAMINOPHEN 325 MG TAB PO PRN (13:18)
[2019-06-21 14:00] VITALS: BP 125/58; PULSE 70; RESP 20
[2019-06-21 19:19] VITALS: BP 138/67; PULSE 67; RESP 18
[2019-06-21] MEDS: ATORVASTATIN 80 MG TAB PO SCH (20:56)
[2019-06-21] MEDS: SENNA TAB PO SCH (20:56)
[2019-06-21] MEDS: DOXAZOSIN 4 MG TAB PO SCH (20:57)
[2019-06-21] MEDS: INSULIN GLARGINE [LANTus] (100 UNITS/ML) SYG SC SCH (21:00)
[2019-06-22 02:00] VITALS: BP 128/64; PULSE 72; RESP 18
[2019-06-22] MEDS: ACCU-CHEK XX SCH ×4 (02:00→17:05)
[2019-06-22] MEDS: LEVOTHYROXINE 100 MCG TAB PO SCH (06:23)
[2019-06-22 07:30] VITALS: BP 133/60; PULSE 71; RESP 20
[2019-06-22] MEDS: INSULIN ASPART [NOVOLOG] 3 ML PEN SC SCH ×6 (07:34→17:11)
[2019-06-22] MEDS: LINAGLIPTIN 5 MG TABLET PO SCH (07:46)
[2019-06-22] MEDS: metFORMIN 500 MG TAB PO SCH ×2 (07:47→17:11)
[2019-06-22] MEDS: DOCUSATE SODIUM 100 MG CAP PO SCH (08:27)
[2019-06-22] MEDS: METOPROLOL 50 MG TAB PO SCH (08:35)
[2019-06-22] MEDS: LOSARTAN 50 MG TAB PO SCH (08:36)
[2019-06-22] MEDS: CITALOPRAM 20 MG TAB PO SCH (08:36)
[2019-06-22] MEDS: LIOTHYRONINE 5 MCG TAB PO SCH (08:36)
[2019-06-22] MEDS: TRIMETHOPRIM/SULFAMETHOX (DS) TAB PO SCH (08:36)
[2019-06-22] MEDS: APIXABAN 5 MG TABLET PO SCH (08:36)
[2019-06-22] MEDS: CHLORTHALIDONE 25 MG TAB PO SCH (08:37)
[2019-06-22 14:00] VITALS: BP 121/57; PULSE 72; RESP 18
== END 2019-06-22 16:57 | disposition home health service (06) | DRG 949 ==
LOC: VRC 17:54
PROVIDERS: ADMIT Physical Medicine & Rehabilitation; ATTEND Internal Medicine
DX: T84.31 Breakdown (mechanical) of other bone devices, implants and grafts (principal); M86.9 Osteomyelitis, unspecified; N39.0 Urinary tract infection, site not specified; I82.409 Acute embolism and thrombosis of unspecified deep veins of unspecified lower extremity; N17.9 Acute kidney failure, unspecified; E11.621 Type 2 diabetes mellitus with foot ulcer; L97.513 Non-pressure chronic ulcer of other part of right foot with necrosis of muscle; E66.9 Obesity, unspecified; E11.51 Type 2 diabetes mellitus with diabetic peripheral angiopathy without gangrene; E11.42 Type 2 diabetes mellitus with diabetic polyneuropathy; B35.1 Tinea unguium; E78.49 Other hyperlipidemia; E03.9 Hypothyroidism, unspecified; E11.69 Type 2 diabetes mellitus with other specified complication; E06.3 Autoimmune thyroiditis; Z74.09 Other reduced mobility; Z68.38 Body mass index [BMI] 38.0-38.9, adult; I12.9 Hypertensive chronic kidney disease with stage 1 through stage 4 chronic kidney disease, or unspecified chronic kidney disease; E11.22 Type 2 diabetes mellitus with diabetic chronic kidney disease; N18.3 Chronic kidney disease, stage 3 (moderate); E11.610 Type 2 diabetes mellitus with diabetic neuropathic arthropathy; B96.20 Unspecified Escherichia coli [E. coli] as the cause of diseases classified elsewhere; D64.9 Anemia, unspecified
CPT/HCPCS: 80048; 80053; 81001; 82962; 84443; 85025; 87081; 87086; 97110; 97163; 97167; 97530; 97535; 97542; J1815